=== PATIENT | female | born 1950 | race Caucasian/White ===

== ENCOUNTER 2017-02-16 12:30 | Inpatient (IN) ==
[2017-02-16 14:25] LABS: Basophils % 0.7 %; Eosinophils % 0.3 %; Hematocrit 39.9 % (35.3-44.9); Hemoglobin 13.2 g/dL (11.5-15.4); Immature Granulocytes % 0.3 % (0-4); Lymphocytes # 0.6 K/mcL (0.6-4.6); Lymphocytes % 9.2 %; Mean Corpuscular HGB Conc 33.1 g/dL (31.6-35.5); Mean Corpuscular Hemoglobin 30.3 pg (28.0-33.3); Mean Corpuscular Volume 91.7 fL (83.0-100.0); Mean Platelet Volume 8.9 fL (9.4-12.4); Monocytes # 0.2 K/mcL (0.0-1.3); Neutrophils # 5.1 K/mcL (1.6-8.9); Platelet Count 227 K/mcL (140-400); Red Blood Count 4.35 M/mcL (3.82-4.97); Red Cell Distribution Width 14.4 % (11.5-14.5); Segmented Neutrophils % 85.5 %
[2017-02-16 14:37] LABS: BUN/Creatinine Ratio 12 (6-26); Blood Urea Nitrogen 12 mg/dL (7-20); Calcium 10.5 mg/dL (8.6-10.8); Carbon Dioxide 30 mEq/L (19-29); Chloride 99 mEq/L (98-109); Glucose 102 mg/dL (70-99); Magnesium 2.1 mg/dL (1.6-2.6); Osmolality,Calculated 286 (280-300); Potassium 4.4 mEq/L (3.5-4.5); Sodium 138 mEq/L (136-145); eGFR For African Americans > 60 (> 60); eGFR For Non-African Americans 56 (> 60)
[2017-02-16 14:47] LABS: INR 4.9; Prothrombin Time 55.1 Seconds (9.4-12.1)
[2017-02-16 15:00] LABS: Thyroid Stimulating Hormone 0.509 mcIU/mL (0.350-4.840)
--- NOTE | 2017-02-16 15:00 | Emergency Department Note ---
Disposition Clinical Impression: Atrial fibrillation Qualifiers: Atrial fibrillation type: paroxysmal Qualified Code(s): I48.0 - Paroxysmal atrial fibrillation Chest pain Qualifiers: Chest pain type: unspecified Qualified Code(s): R07.9 - Chest pain, unspecified Disposition: Admitted As Inpatient Condition: Good Referrals: Raúl English DO [Primary Care Provider] - Forms: ED Satisfaction Letter Arrhythmia/Palpitations HPI - General Chief Complaint: ED Arrhythmia/Palpitations Stated Complaint: I'm in Afib Time Seen by Provider: 02/16/17 14:13 Source: patient Limitations: no limitations Nursing Notes Reviewed: Yes Vital Signs Reviewed: Yes - History of Present Illness HPI Narrative: She is a 66-year-old female history of proximal A. fib she had a cardiac ablation in the past she felt like she wanted A. fib she had irregular heartbeat palpitations and patient was very symptomatic with exertion. With any exertion she felt weak and fatigued, some chest discomfort and palpitations and mild dyspnea. Rest would make it better she had an episode several years ago this resolved on its own or hospitalization without requiring cardioversion. Pt Subjective Complaint: "skipped beats", palpitations Onset (ago): day(s) (4) Duration: constant Severity: moderate Context: occurred during exertion Arrhythmia History: atrial fibrillation Associated symptoms: Reports: chest pain, shortness of breath - Related Data Home Medications Medication Instructions Recorded Confirmed Buspirone HCl [Buspar] 10 mg PO BID PRN 04/07/16 10/06/16 Calcium Carbonate [Calcium] 500 mg PO BID 04/07/16 10/06/16 Digoxin [Lanoxin] 0.125 mg PO DAILY 04/07/16 10/06/16 Furosemide [Lasix] 40 mg PO BID 04/07/16 10/06/16 Hydroxychloroquine [Plaquenuil] 200 mg PO DAILY 04/07/16 10/06/16 Lisinopril [Zestril] 10 mg PO DAILY 04/07/16 10/06/16 Multivitamin [Multi-Day Vitamins] 1 tab PO DAILY 04/07/16 10/06/16 Pramipexole Di-HCl [Pramipexole 0.125 mg PO HS 04/07/16 10/06/16 Dihydrochloride] Pravastatin Sodium [Pravachol] 20 mg PO HS 04/07/16 10/06/16 Sertraline [Zoloft] 50 mg PO DAILY 04/07/16 10/06/16 Spironolactone [Aldactone] 25 mg PO DAILY 04/07/16 10/06/16 Tiotropium [Spiriva] 1 cap IH DAILY 04/07/16 10/06/16 Trazodone HCl 150 mg PO HS 04/07/16 10/06/16 amLODIPine [Norvasc] 5 mg PO DAILY 04/07/16 10/06/16 rOPINIRole [Requip] 1 mg PO HS 04/07/16 10/06/16 Ascorbate Calcium [Vitamin C] 500 mg PO DAILY 10/06/16 10/06/16 Methotrexate [Otrexup] 20 mg PO FR 10/06/16 10/06/16 Metoprolol [Lopressor] 12.5 mg PO BID 10/06/16 10/06/16 Potassium 99 mg PO DAILY 10/06/16 10/06/16 Sertraline [Zoloft] 50 mg PO DAILY 10/06/16 10/06/16 Warfarin [Coumadin] 4.5 mg PO Q48H 10/06/16 10/06/16 Warfarin [Coumadin] 5 mg PO Q48H 10/06/16 10/06/16 Previous Rx's Medication Instructions Recorded Enoxaparin [Lovenox] 80 mg SQ Q12HR #0 04/11/16 Allergies Allergy/AdvReac Type Severity Reaction Status Date / Time No Known Allergies Allergy Verified 02/16/17 12:43 All systems ED: reviewed and negative except as stated. Constitutional: Reports: weakness. Denies: fever, chills Respiratory: Reports: dyspnea Gastrointestinal: Denies: nausea, vomiting Past Medical History - Past Medical History Source: patient, old records reviewed, nursing notes reviewed Medical history: Reports: atrial fibrillation, COPD, coronary artery disease, hyperlipidemia, hypertension, peripheral artery disease, valvular heart disease Surgical history: Reports: appendectomy, coronary bypass (CABG), hysterectomy Psychiatric history: Reports: depression - Social History Smoking Status: Former smoker Smokeless Tobacco Status: No Alcohol use: Reports: none Drug use: Reports: none Physical Exam - General Limitations: no limitations General appearance: alert, in no apparent distress - Head Head exam: atraumatic, normocephalic, normal inspection - Eye Eye exam: Present: normal appearance, PERRL, EOMI - Expanded Eye Exam Pupils: Left: reactive - ENT ENT exam: normal exam, normal oropharynx, mucous membranes moist - Expanded ENT Exam External ear exam: Present: normal external inspection Mouth exam: Present: normal external inspection Teeth exam: Present: normal inspection Throat exam: Present: normal inspection - Neck Neck exam: Present: normal inspection, full ROM, trachea midline - Chest Chest inspection: Present: normal inspection, symmetric chest wall rise - Respiratory Respiratory exam: Present: normal lung sounds bilaterally - Cardiovascular Cardiovascular exam: Present: regular rate, irregular rhythm - Abdominal Exam Abdominal exam: Present: soft, Non-Tender. Absent: tenderness, distention, guarding, rebound, rigidity - Extremities Exam Extremities exam: Present: normal inspection, full ROM. Absent: tenderness, pedal edema - Expanded Upper Extremity Exam Shoulder exam: Present: normal inspection, full ROM Arm exam: Present: normal inspection, full ROM Elbow exam: Present: normal inspection, full ROM Forearm/Wrist exam: Present: normal inspection, full ROM Hand exam: Present: normal inspection, full ROM Vascular exam: Normal: capillary refill, radial pulse - Expanded Lower Extremity Exam Hip/Pelvis exam: Present: normal inspection, full ROM Upper leg exam: Present: normal inspection, full ROM Knee exam: Present: normal inspection, full ROM Lower leg exam: Present: normal inspection, full ROM Ankle exam: Present: normal inspection, full ROM Foot/toe exam: Present: normal inspection, full ROM Neurovascular/Tendon exam: Absent: motor deficit, sensory deficit, tendon deficit - Back Exam Back exam: Present: normal inspection, full ROM. Absent: tenderness - Neurological Exam Neurological exam: Present: alert, oriented X3 - Expanded Neurological Exam Patient oriented to: Present: person, place, time Coma Scale Eye Opening: Spontaneous Coma Scale Motor Response: Obeys Commands Coma Scale Verbal Response: Oriented Coma Scale Total: 15 - Psychiatric Psychiatric exam: Present: normal affect, normal mood - Skin Skin exam: Present: warm, dry, intact, normal color Course - Consultations Consultation #1: Dr. CHAVES plan on cardioversion tomorrow Time: 15:00 Vital Signs Temperature 98.0 F 02/16/17 12:38 Pulse Rate 82 02/16/17 12:38 Respiratory Rate 16 02/16/17 12:38 Blood Pressure 111/72 02/16/17 12:38 O2 Sat by Pulse Oximetry 97 06/26/17 12:38 Temperature 98.0 F 02/16/17 12:38 Pulse Rate 83 02/16/17 14:32 Respiratory Rate 16 02/16/17 14:32 Blood Pressure 107/97 02/16/17 14:32 O2 Sat by Pulse Oximetry 96 02/16/17 14:32 Oxygen Delivery Oxygen Delivery Room Air Arrhythmia/Palpitations - Differential Diagnosis Differential Diagnosis: Likely: ventricular premature beats, ventricular tachycardia, metabolic/electrolyte disturbance, undetermined arrhythmia - Medical Records Medical records reviewed: Yes I reviewed the patient's medical records. - Lab Data Lab results reviewed: Yes I reviewed the patient's lab results. Result diagrams: 02/16/17 14:12 02/16/17 14:12 Lab Results 02/16/17 02/16/17 02/16/17 Range/Units 14:12 14:12 14:12 WBC 6.0 (4.3-11.1) K/mcL RBC 4.35 (3.82-4.97) M/mcL Hgb 13.2 (11.5-15.4) g/dL Hct 39.9 (35.3-44.9) % MCV 91.7 (83.0-100.0) fL MCH 30.3 (28.0-33.3) pg MCHC 33.1 (31.6-35.5) g/dL RDW 14.4 (11.5-14.5) % Plt Count 227 (140-400) K/mcL MPV 8.9 L (9.4-12.4) fL Immature Gran % 0.3 (0-4) % Seg Neutrophils % 85.5 % Lymphocytes % 9.2 % Monocytes % 4.0 % Eosinophils % 0.3 % Basophils % 0.7 % Neutrophils # 5.1 (1.6-8.9) K/mcL Lymphocytes # 0.6 (0.6-4.6) K/mcL Monocytes # 0.2 (0.0-1.3) K/mcL Eosinophils # 0.0 (0.0-0.6) K/mcL Basophils # 0.0 (0.0-0.2) K/mcL PT 55.1 H* (9.4-12.1) Seconds INR 4.9 H* APTT 45.0 H (26.0-36.0) Seconds Sodium 138 (136-145) mEq/L Potassium 4.4 (3.5-4.5) mEq/L Chloride 99 (98-109) mEq/L Carbon Dioxide 30 H (19-29) mEq/L BUN 12 (7-20) mg/dL Creatinine 0.99 (0.57-1.11) mg/dL Est GFR ( Amer) > 60 (> 60) Est GFR (Non-Af Amer) 56 L (> 60) BUN/Creatinine Ratio 12 (6-26) Glucose 102 H (70-99) mg/dL Calculated Osmolality 286 (280-300) Calcium 10.5 (8.6-10.8) mg/dL Magnesium 2.1 (1.6-2.6) mg/dL Troponin I (0-0.03) ng/mL 02/16/17 Range/Units 14:12 WBC (4.3-11.1) K/mcL RBC (3.82-4.97) M/mcL Hgb (11.5-15.4) g/dL Hct (35.3-44.9) % MCV (83.0-100.0) fL MCH (28.0-33.3) pg MCHC (31.6-35.5) g/dL RDW (11.5-14.5) % Plt Count (140-400) K/mcL MPV (9.4-12.4) fL Immature Gran % (0-4) % Seg Neutrophils % % Lymphocytes % % Monocytes % % Eosinophils % % Basophils % % Neutrophils # (1.6-8.9) K/mcL Lymphocytes # (0.6-4.6) K/mcL Monocytes # (0.0-1.3) K/mcL Eosinophils # (0.0-0.6) K/mcL Basophils # (0.0-0.2) K/mcL PT (9.4-12.1) Seconds INR APTT (26.0-36.0) Seconds Sodium (136-145) mEq/L Potassium (3.5-4.5) mEq/L Chloride (98-109) mEq/L Carbon Dioxide (19-29) mEq/L BUN (7-20) mg/dL Creatinine (0.57-1.11) mg/dL Est GFR ( Amer) (> 60) Est GFR (Non-Af Amer) (> 60) BUN/Creatinine Ratio (6-26) Glucose (70-99) mg/dL Calculated Osmolality (280-300) Calcium (8.6-10.8) mg/dL Magnesium (1.6-2.6) mg/dL Troponin I 0.02 (0-0.03) ng/mL - Radiology Data Radiology results reviewed: Yes I reviewed the patient's radiology results. - EKG Data EKG attestation: Yes I reviewed and interpreted this EKG. Rate: normal Rhythm: A.Fib [place]/QRS: normal Interpretation: unchanged when compared to prior tracing (date)
[2017-02-16 15:31] LABS: Digoxin 0.7 ng/mL (0.8-2.0)
[2017-02-16] MEDS ORDERED: Acetaminophen 325 MG TABLET PO PRN (15:41)
[2017-02-16] MEDS ORDERED: Naloxone 0.4 MG/ML INJ IVP PRN (15:41)
--- NOTE | 2017-02-16 15:54 | Electrocardiograph Report ---
[place] [employer] 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
--- NOTE | 2017-02-16 16:22 | Internal Med History&Physical ---
<Selene Muñiz - Last Filed: 02/16/17 17:35> Date of Encounter: 02/16/17 Time of Encounter: 16:19 Assessment and Plan (1) Paroxysmal atrial fibrillation Current visit: Yes Status: Acute 1 patient has history of atrial fibrillation and she underwent ablation in 2009 she also has a history of mechanical aortic valve. She is on Coumadin. She has been experiencing increased shortness of breath fatigue palpitations she was found to be in atrial fibrillation. Cardiology has been consult and patient will undergo a cardioversion in the morning 2 patient is to be nothing by mouth after midnight for cardioversion 3 we will continue with home medications 4 we will hold Coumadin dose tonight due to INR 4.9 5 we will recheck INR in a.m. 6 digoxin level 0.7 we will give 0.25 mg po digoxin once and continue home dose (2) History of mechanical aortic valve replacement Current visit: Yes Status: Acute Patient has a hx of aortic mechanical valve will conintue with coumadin, presently INR 4.9- we will hold coumadin tonight recheck in am Goal INR 2.5- 3.0 (3) COPD (chronic obstructive pulmonary disease) Current visit: No Status: Chronic has hx of chronic COPD no excerbation at this time . We will continue with oxygen as well as bronchodilators Qualifiers: COPD type: unspecified COPD Qualified Code(s): J44.9 - Chronic obstructive pulmonary disease, unspecified (4) HTN (hypertension) Current visit: Yes Status: Acute 1 presently stable we will continue with home medications Qualifiers: Hypertension type: essential hypertension Qualified Code(s): I10 - Essential (primary) hypertension (5) Chest pain Current visit: Yes Status: Acute patient had fleeting episode of CP which resolved on own, Troponin .02 will continue to monitor troponin 2 cardiac monitoring 3 cardiology has been consulted Qualifiers: Chest pain type: unspecified Qualified Code(s): R07.9 - Chest pain, unspecified (6) DVT prophylaxis Current visit: Yes Status: Acute on coumadin Internal Medicine - H&P: HPI Chief complaint: Palpitations shortness of breath Admitted From: Emergency Dept Plans for Post Hospital Care: Home History of present illness: Ms. Diamond is a 66 year old female past medical history of hypertension fibrillation ablation 1999 mechanical AVR 1998 COPD 2 L oxygen history of diverticulitis. According to the patient on she began to feel fatigued short of breath palpitations on exertion. The symptoms would improve with rest. This continued for the next few days. This morning she states she continued to have palpitations and fatigue however she felt she was not improving and actually experiencing symptoms of rest. She did contact her primary care physician however was unable to reach them. 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 Upon arrival to the ER and EKG atrial fibrillation heart rate 80s to 90s however will to 120s on exertion. Lab work did reveal elevated INR at 4.9 Patient is on Coumadin for mechanical valve. Chest x-ray did not reveal any acute process She denies any fevers or chills. She does admit to a brief feeling of chest pressure midsternally nonradiating which resolved on his own after a few minutes a couple days ago. She also had experience abdominal pains cramping diarrhea she went to see her primary care who prescribed Cipro and Flagyl for diverticulitis flare. She states her abdominal symptoms have improved. ER physician speak with cardiology Dr. Bautista who will cardiovert patient in a.m. patient has been admitted for further work up evaluation. Presently the patient does not appear to be any respiratory distress she denies any chest pain she is atrial fib on the monitor rate 80-90 rest her vitals are stable. Lung sounds are clear heart sounds irregular S1-S2 with click with no rubs gallops murmurs noted. No pedal edema abdomen soft nontender presently she is hemodynamically stable. I reviewed his case with Dr. London who agrees with plan Past Med Surg Social Fam HX - Past Medical History Medical history: atrial fibrillation, COPD, coronary artery disease, hyperlipidemia, hypertension, peripheral artery disease, valvular heart disease Psychiatric history: depression - Past Surgical History Surgical History: appendectomy, coronary bypass (CABG), hysterectomy - Social History Smoking Status: Former smoker Smokeless Tobacco Status: No Alcohol use: none Drug use: none - Family History Father Living Status: Age at : 57 Cause of : Colon cancer Mother Living Status: Age at : 71 Cause of : HTN CAD Internal Medicine - H&P: Meds Buspirone HCl [Buspar] 10 mg PO BID PRN 04/07/16 [History] Calcium Carbonate [Calcium] 500 mg PO BID 04/07/16 [History] Digoxin [Lanoxin] 0.125 mg PO DAILY 04/07/16 [History] Furosemide [Lasix] 40 mg PO BID 04/07/16 [History] Hydroxychloroquine [Plaquenuil] 200 mg PO DAILY 04/07/16 [History] Lisinopril [Zestril] 10 mg PO DAILY 04/07/16 [History] Multivitamin [Multi-Day Vitamins] 1 tab PO DAILY 04/07/16 [History] Pramipexole Di-HCl [Pramipexole Dihydrochloride] 0.125 mg PO HS 04/07/16 [ History] Pravastatin Sodium [Pravachol] 20 mg PO HS 04/07/16 [History] Spironolactone [Aldactone] 25 mg PO DAILY 04/07/16 [History] Tiotropium [Spiriva] 1 cap IH DAILY 04/07/16 [History] Trazodone HCl 150 mg PO HS 04/07/16 [History] amLODIPine [Norvasc] 5 mg PO DAILY 04/07/16 [History] rOPINIRole [Requip] 1 mg PO HS 04/07/16 [History] Ascorbate Calcium [Vitamin C] 500 mg PO DAILY 10/06/16 [History] Methotrexate [Otrexup] 20 mg PO FR 10/06/16 [History] Metoprolol [Lopressor] 12.5 mg PO BID 10/06/16 [History] Potassium 99 mg PO DAILY 10/06/16 [History] Sertraline [Zoloft] 50 mg PO DAILY 10/06/16 [History] Warfarin [Coumadin] 6.5 mg PO DAILY 10/06/16 [History] Ciprofloxacin [Cipro] 500 mg PO BID 02/16/17 [History] Eluxadoline [Viberzi] 100 mg PO DAILY 02/16/17 [History] Ferrous Sulfate [Iron] 325 mg PO DAILY 02/16/17 [History] Folic Acid 1 mg PO DAILY 02/16/17 [History] metroNIDAZOLE [Flagyl] 500 mg PO BID 02/16/17 [History] Allergies No Known Allergies Allergy (Verified 02/16/17 15:09) All Systems PM: A 10-system review of systems was performed and is negative for pertinent findings except as documented above in the HPI. - Constitutional Constitutional: fatigue - EENT Eyes: no change in vision, no discharge, no pain, no photophobia Ears: no ear discharge, no ear pain, no tinnitus Nose, mouth and throat: no dysphagia, no nasal discharge, no neck pain, no sore throat - Cardiovascular Cardiovascular ROS IM: dyspnea, dyspnea on exertion, palpitations, no chest pain , no diaphoresis, no lightheadedness, no syncope - Respiratory Respiratory: dyspnea on exertion - Gastrointestinal Gastrointestinal: no abdominal pain, no diarrhea, no hematemesis, no hematochezia, no melena, no nausea, no vomiting - Genitourinary Genitourinary: no change in urinary stream, no dysuria, no flank pain, no hematuria - Musculoskeletal Musculoskeletal ROS IM: no numbness, no tingling - Integumentary Integumentary IM: no rash, no unusual bruising - Neurological Neurological ROS: no confusion, no convulsions, no focal weakness, no numbness, no tingling, no tremor(s) - Hematologic/Lymphatic Hematologic/Lymphatic: no easy bruising - Constitutional Vitals: Temp Pulse Resp BP Pulse Ox 98.0 F 84 16 109/80 98 02/16/17 12:38 02/16/17 15:30 02/16/17 15:30 02/16/17 15:30 02/16/17 15:30 General appearance: Present: A&O X 3, answers questions appropriately - Head Head exam: Present: atraumatic, normocephalic - Eye Eye exam: Present: PERRL, conjuntiva pink, sclera anicteric Pupils: Present: PERRL - Neck Neck exam general surgery: Present: supple, trachea midline. Absent: lymphadenopathy - Respiratory Respiratory exam: Present: CTAB. Absent: accessory muscle use, rales, rhonchi, wheezes - Cardiovascular Cardiovascular exam: Present: clicks, RRR, +S1, +S2. Absent: diastolic murmur, gallop, rubs, systolic murmur - GI/Abdominal GI/Abdominal exam: Present: normal bowel sounds, soft, no peritoneal signs. Absent: distended, tenderness - Extremities Exam Extremities exam: Present: warm, radial pulses palpable and symetrical. Absent : calf tenderness, cyanotic, pedal edema - Neurological Exam Neurological exam: Present: CN II-XII intact, oriented X3, no focal deficits. Absent: pronater drift, facial droop, speech deficit - Skin Skin exam: Present: dry, intact Internal Med - H&P Results - Labs CBC & Chem 7: 02/16/17 14:12 02/16/17 14:12 - EKG Data Prior EKG available for review: yes When compared to previous EKG: there are significant changes EKG comments: 02/16/17 16:[address] T wave abnormalities - Diagnostic Studies Other Images Additional comments: Chest X-Ray 02/16/17 13:28 IMPRESSION: Stable examination without acute focal process. D/ / Jim Witt MD / Jim Witt MD Interpreting Provider: Jim Witt MD <Binh London - Last Filed: 02/16/17 18:20> Date of Encounter: 02/16/17 Time of Encounter: 15:35 Internal Medicine - H&P: HPI History of present illness: Ms. Diamond is a 66 year old female All Systems PM: A 10-system review of systems was performed and is negative for pertinent findings except as documented above in the HPI. - Constitutional Vitals: Temp Pulse Resp BP Pulse Ox 98.0 F 94 17 123/80 94 02/16/17 17:03 02/16/17 17:03 02/16/17 17:03 02/16/17 17:03 02/16/17 17:03 Internal Med - H&P Results - Labs CBC & Chem 7: 02/16/17 14:12 02/16/17 14:12 - Attending Attestation I examined this patient and my medical decision-making was reviewed with the nurse practitioner. I agree with the documented history of present illness, review of systems, past medical, surgical social and family histories and examination findings, disposition and treatment plan as described above except to any changes set forth below. 66-year-old female patient with history of atrial fibrillation status post unsuccessful radiofrequency ablation presented to the ER with complaints of dyspnea and palpitations especially with ambulation even minimally. On examination in the ER, patient is in A. fib with irregularly irregular rhythm. S1 is normal S2 is loud with a click. Respiratory examination minimal bilateral wheezing. Patient has trace pedal edema. Paroxysmal Atrial fibrillation: Rate controlled. Cardiology was consulted. Digoxin level is low. We will give 0.25 mg digoxin and resume home dose from tomorrow. Given the patient's symptoms of worsening dyspnea with tachycardia on ambulation, recommend cardioversion. We will keep patient nothing by mouth overnight. Monitor with telemetry. On anticoagulation with Coumadin. INR is prolonged. We will hold Coumadin for now and resume tomorrow based on INR. Possible Acute diverticulitis: Patient is being treated as outpatient for possible acute diverticulitis. Complete treatment course. COPD: Not in acute exacerbation. We will treat with bronchodilators as needed. Chest pain: Associated with A. fib. No longer having chest pain at this time. Trend troponins. Cardiology consulted. Essential hypertension: Monitor blood pressure. Resume home medications.
[2017-02-16] MEDS ORDERED: *HR* Digoxin 0.25 MG TABLET PO ONE (17:16)
[2017-02-16] MEDS: Furosemide 20 MG TABLET PO SCH (18:21)
[2017-02-16] MEDS: traZODone 50 MG TABLET PO SCH (21:01)
[2017-02-16] MEDS: metroNIDAZOLE 500 MG TABLET PO SCH (21:02)
[2017-02-16] MEDS: rOPINIRole 1 MG TABLET PO SCH (21:02)
[2017-02-17 02:02] LABS: Basophils % 0.8 %; Eosinophils # 0.1 K/mcL (0.0-0.6); Eosinophils % 1.6 %; Hematocrit 35.5 % (35.3-44.9); Hemoglobin 11.8 g/dL (11.5-15.4); Immature Granulocytes % 0.2 % (0-4); Lymphocytes # 1.1 K/mcL (0.6-4.6); Lymphocytes % 22.8 %; Mean Corpuscular HGB Conc 33.2 g/dL (31.6-35.5); Mean Corpuscular Volume 90.3 fL (83.0-100.0); Mean Platelet Volume 9.2 fL (9.4-12.4); Monocytes # 0.5 K/mcL (0.0-1.3); Neutrophils # 3.2 K/mcL (1.6-8.9); Platelet Count 208 K/mcL (140-400); Red Blood Count 3.93 M/mcL (3.82-4.97); Red Cell Distribution Width 14.2 % (11.5-14.5); Segmented Neutrophils % 64.6 %
[2017-02-17 02:08] LABS: Activated Partial Thrombo Time 41.5 Seconds (26.0-36.0)
[2017-02-17 02:09] LABS: INR 5.4
[2017-02-17 02:18] LABS: BUN/Creatinine Ratio 14 (6-26); Blood Urea Nitrogen 15 mg/dL (7-20); Calcium 9.1 mg/dL (8.6-10.8); Carbon Dioxide 30 mEq/L (19-29); Chloride 99 mEq/L (98-109); Glucose 81 mg/dL (70-99); Magnesium 1.8 mg/dL (1.6-2.6); Osmolality,Calculated 288 (280-300); Potassium 3.6 mEq/L (3.5-4.5); Sodium 139 mEq/L (136-145); eGFR For African Americans > 60 (> 60); eGFR For Non-African Americans 51 (> 60)
[2017-02-17] MEDS: Tiotropium 18 MCG inhalation IH SCH (08:03)
[2017-02-17] MEDS ORDERED: *HR* Digoxin 0.125 MG TABLET PO SCH (09:00)
[2017-02-17] MEDS ORDERED: amLODIPine 5 MG TABLET PO SCH (09:00)
[2017-02-17] MEDS: Spironolactone 25 MG TABLET PO SCH (09:30)
[2017-02-17] MEDS: Furosemide 20 MG TABLET PO SCH ×2 (09:30→18:12)
[2017-02-17] MEDS: metroNIDAZOLE 500 MG TABLET PO SCH ×2 (09:30→21:51)
[2017-02-17] MEDS: Folic Acid 1 MG TABLET PO SCH (09:30)
[2017-02-17] MEDS: Ascorbic Acid 500 MG TABLET PO SCH (09:32)
--- NOTE | 2017-02-17 10:56 | Cardiology Consult Note ---
Date of Encounter: 02/17/17 Time of Encounter: 10:00 Assessment and Plan (1) Atrial fibrillation Current Visit: Yes Status: Acute Per Cardiology: History of A. fib with ablation in 2009. Presented with A. fib with RVR. Currently A. fib 110s. On metoprolol tartrate 12.5 mg by mouth twice a day-- we' ll discontinue Norvasc and lisinopril for now. Increase metoprolol to 25 mg by mouth twice a day. We'll titrate based on heart rate and blood pressure-- currently SBp 100's-110's. Per discussion with Dr. Pyle, plans for MAICOL once INR improved-- INR has been subtherapuetic recently, now= 5.4 (on antibiotics for diverticulitis), Coumadin on hold (will not reverse d/t mechanical AVR). If no significant findings on MAICOL, plan to initiate sotalol and possible DCCV during stay if clinically warranted. Last [facility] 08/2009 normal angiogram. Trops negative. Electrolytes stable. Denies CP. Qualifiers: Atrial fibrillation type: paroxysmal Qualified Code(s): I48.0 - Paroxysmal atrial fibrillation (2) History of mechanical aortic valve replacement Current Visit: Yes Status: Chronic Per Cardiology: History of congenital aortic valve disease with aortic valve repair at age 17 and mechanical aortic valve replacement in 1998. Most recent echo 12/2016 showed suggested prosthetic with mean gradient 42mmHg (not well visualized), EF 65% , mild MR, mild-mod TR, mild PHTN, NSWMA. Will evaluate severity of aortic stenosis on MAICOL as well. Discussion w patient/family: The assessment and plan as outlined above was discussed with the patient and/or family members who expressed understanding and agreement. All questions were answered. Thank you for involving us in the care of your patient. Please call with any questions. History of Present Illness Consult date: 02/17/17 Consult reason: SPENCER, Afib RVR Chief complaint: SPENCER History of present illness: Ms. Diamond is a 66 year old female with a relevant past medical history of congenital aortic stenosis with history of aortic valve repair at age 17 and mechanical aortic valve replacement 1998, paroxysmal atrial fibrillation with history of ablation 2009, anticoagulated with Coumadin, hypertension, hyperlipidemia, COPD with home O2, PAD. Last seen by Cardiology Dr. Pyle 12/2016 Cardiology c/s for afib RVR with SPENCER and fatigue. Recent abdominal pains, cramping, and diarrhea-- her PCP prescribed Cipro and Flagyl for diverticulitis flare. She states her abdominal symptoms have improved. Reports since increased SPENCER and fatigue from baseline; improved with rest. Yesterday developed palps and sob at rest. 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 Upon arrival to the ER and EKG atrial fibrillation heart rate 80s to 90s however and up to the 120s on exertion. Reports today mild palps. No CP. No bleeding or blood loss. Reports INRs fluctuating recently. Past Med Surg Social Fam HX - Past Medical History Attestation: Yes The following information was validated with the patient. Source: patient, old records reviewed, obtained from family Medical history: atrial fibrillation, COPD, coronary artery disease, hyperlipidemia, hypertension, peripheral artery disease, valvular heart disease Psychiatric history: depression - Past Surgical History Surgical History: appendectomy, coronary bypass (CABG), hysterectomy - Social History Smoking Status: Former smoker Smokeless Tobacco Status: No Alcohol use: none Drug use: none - Family History Father Name: Riccardo Abrams Jr Living Status: Age at : 57 Cause of : Colon cancer Hx Family Cancer: Yes (colon and liver) Mother Living Status: Age at : 71 Cause of : HTN CAD Medications and Allergies Buspirone HCl [Buspar] 10 mg PO BID PRN 04/07/16 [History] Calcium Carbonate [Calcium] 500 mg PO BID 04/07/16 [History] Digoxin [Lanoxin] 0.125 mg PO DAILY 04/07/16 [History] Furosemide [Lasix] 40 mg PO BID 04/07/16 [History] Hydroxychloroquine [Plaquenuil] 200 mg PO DAILY 04/07/16 [History] Lisinopril [Zestril] 10 mg PO DAILY 04/07/16 [History] Multivitamin [Multi-Day Vitamins] 1 tab PO DAILY 04/07/16 [History] Pramipexole Di-HCl [Pramipexole Dihydrochloride] 0.125 mg PO HS 04/07/16 [ History] Pravastatin Sodium [Pravachol] 20 mg PO HS 04/07/16 [History] Spironolactone [Aldactone] 25 mg PO DAILY 04/07/16 [History] Tiotropium [Spiriva] 1 cap IH DAILY 04/07/16 [History] Trazodone HCl 150 mg PO HS 04/07/16 [History] amLODIPine [Norvasc] 5 mg PO DAILY 04/07/16 [History] rOPINIRole [Requip] 1 mg PO HS 04/07/16 [History] Ascorbate Calcium [Vitamin C] 500 mg PO DAILY 10/06/16 [History] Methotrexate [Otrexup] 20 mg PO FR 10/06/16 [History] Metoprolol [Lopressor] 12.5 mg PO BID 10/06/16 [History] Potassium 99 mg PO DAILY 10/06/16 [History] Sertraline [Zoloft] 50 mg PO DAILY 10/06/16 [History] Warfarin [Coumadin] 6.5 mg PO DAILY 10/06/16 [History] Ciprofloxacin [Cipro] 500 mg PO BID 02/16/17 [History] Eluxadoline [Viberzi] 100 mg PO DAILY 02/16/17 [History] Ferrous Sulfate [Iron] 325 mg PO DAILY 02/16/17 [History] Folic Acid 1 mg PO DAILY 02/16/17 [History] metroNIDAZOLE [Flagyl] 500 mg PO BID 02/16/17 [History] Allergies No Known Allergies Allergy (Verified 02/16/17 15:09) All Systems Review: A 10-system review of systems was performed and is negative for pertinent findings except as documented above in the HPI. - Constitutional Constitutional: fatigue - Cardiovascular Cardiovascular: as per HPI, dyspnea at rest, dyspnea on exertion, palpitations, rapid heart rate - Gastrointestinal Gastrointestinal: abdominal pain, diarrhea Physical Examination Vital Signs, Last 4 Hours Temp Pulse Resp BP Pulse Ox 02/17/17 08:04 16 94 02/17/17 07:23 98.1 F 82 16 113/75 94 General: Conversant, No Apparent Distress HEENT: Atraumatic, Normocephaly, Mucus Membranes Moist Neck: No JVD, Normal carotid pulses Cardiac: No Murmur, Other (irregularly irregular) Lungs: Normal Breath Sounds, Other (slioghtly diminished to bases) Neuro: Alert and responsive, No focal deficits noted Abdomen: Soft, Non-Tender Skin: No rashes noted on visualized skin Musculoskeletal: No Chest Wall Tenderness Extremities: No Edema, Normal Pulses Results 02/17/17 01:34 02/17/17 01:34 Lab Results Laboratory Tests 02/17/17 01:34 INR 5.4 H* 02/16/17 02/16/17 02/16/17 14:12 14:12 14:12 Magnesium Troponin I 0.02 B-Natriuretic Peptide 203 H TSH 0.509 02/16/17 02/17/17 02/17/17 19:54 01:34 01:34 Magnesium 1.8 Troponin I 0.02 0.01 B-Natriuretic Peptide TSH ITS Impressions Chest X-Ray 02/16/17 13:28 IMPRESSION: Stable examination without acute focal process. D/ / Jim Witt MD / Jim Witt MD Interpreting Provider: Jim Witt MD Active Medications Acetaminophen (Tylenol) 650 mg PO Q6HR PRN PRN Reason: Mild Pain (1-3) Stop: 08/18/17 15:42 Last Admin: 02/16/17 21:34 Dose: 650 mg Ascorbic Acid (Vitamin C) 500 mg PO DAILY LEONARD Stop: 08/19/17 09:01 Last Admin: 02/17/17 09:32 Dose: 500 mg Ciprofloxacin HCl (Cipro) 500 mg PO BID LEONARD Stop: 02/22/17 21:01 Last Admin: 02/17/17 09:30 Dose: 500 mg Digoxin (Lanoxin) 0.125 mg PO DAILY LEONARD Stop: 08/19/17 09:01 Last Admin: 02/17/17 09:30 Dose: 0.125 mg Ferrous Sulfate (Ferrous Sulfate) 325 mg PO DAILY LEONARD Stop: 08/19/17 09:01 Last Admin: 02/17/17 09:30 Dose: 325 mg Folic Acid (Folic Acid) 1 mg PO DAILY LEONARD Stop: 08/19/17 09:01 Last Admin: 02/17/17 09:30 Dose: 1 mg Furosemide (Lasix) 40 mg PO BIDDIURETIC LEONARD Stop: 08/18/17 17:01 Last Admin: 02/17/17 09:30 Dose: 40 mg Hydroxychloroquine Sulfate (Plaquenuil) 200 mg PO DAILY [facility] Stop: 08/19/17 09:01 Last Admin: 02/17/17 09:31 Dose: 200 mg Lisinopril (Zestril) 5 mg PO DAILY LEONARD PRN Reason: Protocol Stop: 08/19/17 09:01 Metoprolol Tartrate (Lopressor) 25 mg PO BID [facility] Stop: 08/19/17 21:01 Metronidazole (Flagyl) 500 mg PO BID LEONARD PRN Reason: Protocol Stop: 02/22/17 21:01 Last Admin: 02/17/17 09:30 Dose: 500 mg Naloxone HCl (Narcan) 0.4 mg IVP Q2MIN PRN PRN Reason: Opioid Reversal Stop: 08/18/17 15:42 Ropinirole HCl (Requip) 1 mg PO HS [facility] Stop: 08/18/17 21:01 Last Admin: 02/16/17 21:02 Dose: 1 mg Sertraline HCl (Zoloft) 50 mg PO DAILY [facility] Stop: 08/19/17 09:01 Last Admin: 02/17/17 09:32 Dose: 50 mg Simvastatin (Zocor) 10 mg PO HS [facility] Stop: 08/18/17 21:01 Last Admin: 02/16/17 21:01 Dose: 10 mg Spironolactone (Aldactone) 25 mg PO DAILY [facility] Stop: 08/19/17 09:01 Last Admin: 02/17/17 09:30 Dose: 25 mg Tiotropium [place] (Spiriva) 18 mcg IH DAILY [facility] PRN Reason: Protocol Stop: 08/19/17 09:01 Last Admin: 02/17/17 08:03 Dose: 18 mcg Trazodone HCl (Trazodone) 150 mg PO HS [facility] Stop: 08/18/17 21:01 Last Admin: 02/16/17 21:01 Dose: 150 mg - Imaging and Cardiology Chest Xray: report reviewed Echo: report reviewed Cardiac cath: report reviewed - EKG Interpretation EKG results cardiology: personally reviewed (afib), other (currently afib 110's) Consult Discharge Plan - Plan Referrals: Raúl English, [Primary Care Provider] -
--- NOTE | 2017-02-17 18:24 | Internal Med Progress Note ---
Date of Encounter: 02/17/17 Time of Encounter: 10:30 - Assessment and plan (1) Atrial fibrillation Current Visit: Yes Status: Chronic Assessment and plan: Cardiology on board. Rate currently controlled. Supratherapeutic INR, holding her Coumadin. No signs of active bleeding. We will trend her INR. Per cardiology, plan is to perform a MAICOL tomorrow if her INR is less than 4 and if no clots are found, sotalol will be initiated. Nothing by mouth at midnight. Qualifiers: Atrial fibrillation type: paroxysmal Qualified Code(s): I48.0 - Paroxysmal atrial fibrillation (2) Chest pain Current Visit: Yes Status: Resolved Assessment and plan: Patient has denied chest pain since admission. Qualifiers: Chest pain type: unspecified Qualified Code(s): R07.9 - Chest pain, unspecified (3) History of mechanical aortic valve replacement Current Visit: Yes Status: Chronic Assessment and plan: Patient with history of aortic mechanical valve replacement on Coumadin therapy with goal of INR between 2.5 and 3. Currently supratherapeutic, holding Coumadin. Cardiology on board. (4) COPD (chronic obstructive pulmonary disease) Current Visit: No Status: Chronic Assessment and plan: No acute exacerbation. Patient denies shortness of breath above her norm. Qualifiers: COPD type: unspecified COPD Qualified Code(s): J44.9 - Chronic obstructive pulmonary disease, unspecified (5) HTN (hypertension) Current Visit: Yes Status: Chronic Assessment and plan: Controlled, we will continue to trend and adjust medications as indicated. Qualifiers: Hypertension type: essential hypertension Qualified Code(s): I10 - Essential (primary) hypertension (6) DVT prophylaxis Current Visit: Yes Status: Acute Assessment and plan: Supratherapeutic INR - Subjective Interval history: Patient seen and examined. On examination, patient sitting upright in bed doing a crossword puzzle. She denies pain or shortness of breath at this time. She denies palpitations. She is endorsing a normal appetite. - Constitutional Vitals: Temp Pulse Resp BP Pulse Ox 98.1 F 78 16 100/66 91 02/17/17 15:22 02/17/17 15:22 02/17/17 15:22 02/17/17 15:22 02/17/17 15:22 General appearance: Present: A&O X 3, pleasant, no acute distress, answers questions appropriately - Head Head exam: Present: atraumatic, normocephalic - Eye Eye exam: Present: PERRL, conjuntiva pink, sclera anicteric Pupils: Present: PERRL - Neck Neck exam general surgery: Present: supple, trachea midline. Absent: lymphadenopathy - Respiratory Respiratory exam: Present: CTAB. Absent: accessory muscle use, rales, respiratory distress, rhonchi, wheezes - Cardiovascular Cardiovascular exam: Present: irregular rhythm, RRR, +S1, +S2. Absent: diastolic murmur, gallop, rubs, systolic murmur - GI/Abdominal GI/Abdominal exam: Present: normal bowel sounds, soft, no peritoneal signs. Absent: distended, tenderness - Extremities Exam Extremities exam: Present: warm, radial pulses palpable and symetrical. Absent : calf tenderness, cyanotic, pedal edema - Neurological Exam Neurological exam: Present: alert, CN II-XII intact, oriented X3, no focal deficits, strengths equal and symetr throughout. Absent: pronater drift, facial droop, speech deficit - Skin Skin exam: Present: dry, intact, normal color, warm Internal Medicine: Result - Labs CBC & Chem 7: 02/17/17 01:34 02/17/17 01:34 Labs: Short CBC 02/17/17 Range/Units 01:34 WBC 4.9 (4.3-11.1) K/mcL Hgb 11.8 (11.5-15.4) g/dL Hct 35.5 (35.3-44.9) % Plt Count 208 (140-400) K/mcL Neutrophils # 3.2 (1.6-8.9) K/mcL BMP 02/17/17 01:34 Sodium 139 Potassium 3.6 Chloride 99 Carbon Dioxide 30 H BUN 15 Creatinine 1.08 Glucose 81 Calcium 9.1 Cardiac Enzymes 02/16/17 02/17/17 Range/Units 19:54 01:34 Troponin I 0.02 0.01 (0-0.03) ng/mL - ABG Interpretation ABG results: PT/INR, D-dimer PT 61.0 Seconds (9.4-12.1) H* 02/17/17 01:34 - VTE Documentation of Mechanical Device: Graduated compression elastic hosiery Consult Discharge Plan - Plan Referrals: Raúl English DO [Primary Care Provider] -
[2017-02-17] MEDS: rOPINIRole 1 MG TABLET PO SCH (21:52)
[2017-02-17] MEDS: traZODone 50 MG TABLET PO SCH (21:52)
[2017-02-18 07:40] LABS: Basophils % 0.7 %; Eosinophils # 0.1 K/mcL (0.0-0.6); Hematocrit 41.6 % (35.3-44.9); Immature Granulocytes % 0.3 % (0-4); Lymphocytes # 1.5 K/mcL (0.6-4.6); Lymphocytes % 25.2 %; Mean Corpuscular HGB Conc 32.9 g/dL (31.6-35.5); Mean Corpuscular Hemoglobin 29.5 pg (28.0-33.3); Mean Corpuscular Volume 89.7 fL (83.0-100.0); Mean Platelet Volume 8.7 fL (9.4-12.4); Monocytes # 0.6 K/mcL (0.0-1.3); Monocytes % 10.2 %; Neutrophils # 3.7 K/mcL (1.6-8.9); Platelet Count 258 K/mcL (140-400); Red Blood Count 4.64 M/mcL (3.82-4.97); Red Cell Distribution Width 14.5 % (11.5-14.5); Segmented Neutrophils % 62.6 %
[2017-02-18 07:41] LABS: Hemoglobin 13.7 g/dL (11.5-15.4)
[2017-02-18 07:54] LABS: Calcium 9.6 mg/dL (8.6-10.8); Potassium 3.8 mEq/L (3.5-4.5)
[2017-02-18] MEDS: Tiotropium 18 MCG inhalation IH SCH (08:01)
[2017-02-18 08:22] LABS: INR 3.8; Prothrombin Time 42.5 Seconds (9.4-12.1)
[2017-02-18] MEDS ORDERED: 0.9 % Sodium Chloride 1,000 ML IVC SCH (08:30)
--- NOTE | 2017-02-18 08:36 | Event Note ---
Date of Encounter: 02/18/17 Time of Encounter: 08:30 - Cardiology Event Note Laboratory Tests 02/18/17 07:12 INR 3.8 Avg HR on tele past 12 hrs 91, currently afib 110's. Plan for MAICOL today to assess for potential thrombus and assess . Will resume Coumadin when able. All questions answered.
[2017-02-18] MEDS: Folic Acid 1 MG TABLET PO SCH (10:26)
[2017-02-18] MEDS: Spironolactone 25 MG TABLET PO SCH (10:26)
[2017-02-18] MEDS: metroNIDAZOLE 500 MG TABLET PO SCH ×2 (10:27→21:38)
[2017-02-18] MEDS: Ascorbic Acid 500 MG TABLET PO SCH (10:27)
[2017-02-18] MEDS: Furosemide 20 MG TABLET PO SCH (10:28)
[2017-02-18] MEDS ORDERED: 0.9 % Sodium Chloride 500 ML IVC ONE (10:40)
[2017-02-18] MEDS ORDERED: Tetracaine/Benzocaine/Butamben 200MG/SPRAY (100SPY/BOT) MM ONE (10:40)
[2017-02-18] MEDS: *HR* Midazolam HCl 5 MG/5 ML VIAL IVP PRN ×2 (11:35→11:40)
[2017-02-18] MEDS: *HR* FentaNYL (PF) 100 MCG/2 ML VIAL IVP PRN ×2 (11:35→11:40)
--- NOTE | 2017-02-18 17:59 | Internal Med Progress Note ---
Date of Encounter: 02/18/17 Time of Encounter: 14:30 - Assessment and plan (1) Atrial fibrillation Current Visit: Yes Status: Chronic Assessment and plan: Cardiology on board. Rate currently controlled. Supratherapeutic INR but improved today. Cardiology performed a MAICOL earlier today and have since started the patient on Sotalol. Will observe her response. If she does not convery by thursday, plan for possible cardioversion per cardiology. No signs of active bleeding. We will trend her INR and HR. Qualifiers: Atrial fibrillation type: paroxysmal Qualified Code(s): I48.0 - Paroxysmal atrial fibrillation (2) Chest pain Current Visit: Yes Status: Resolved Assessment and plan: Patient has denied chest pain since admission. Qualifiers: Chest pain type: unspecified Qualified Code(s): R07.9 - Chest pain, unspecified (3) History of mechanical aortic valve replacement Current Visit: Yes Status: Chronic Assessment and plan: Patient with history of aortic mechanical valve replacement on Coumadin therapy with goal of INR between 2.5 and 3. Currently supratherapeutic, holding Coumadin- pharmacy to dose. Cardiology on board. (4) COPD (chronic obstructive pulmonary disease) Current Visit: No Status: Chronic Assessment and plan: No acute exacerbation. Patient denies shortness of breath above her norm. Qualifiers: COPD type: unspecified COPD Qualified Code(s): J44.9 - Chronic obstructive pulmonary disease, unspecified (5) HTN (hypertension) Current Visit: Yes Status: Chronic Assessment and plan: Controlled, we will continue to trend and adjust medications as indicated. Qualifiers: Hypertension type: essential hypertension Qualified Code(s): I10 - Essential (primary) hypertension (6) DVT prophylaxis Current Visit: Yes Status: Acute Assessment and plan: Supratherapeutic INR (7) Chronic diarrhea Current Visit: Yes Status: Chronic Assessment and plan: Chronic and being followed by GI. Had a recent colonoscopy with subsequent EGD that were both unremarkable. She was recently placed on Cipro and Flagyl, holding Cipro at this time secondary to QT prolongation. We will continue Flagyl and monitor her response. Imodium as needed. - Subjective Interval history: Patient seen and examined. On examination, patient sitting upright in bed conversing with her family. She denies pain or shortness of breath at this time. She denies palpitations. She is endorsing a normal appetite. - Constitutional Vitals: Temp Pulse Resp BP Pulse Ox 97.9 F 69 17 111/68 90 02/18/17 15:25 02/18/17 15:25 02/18/17 15:25 02/18/17 15:25 02/18/17 15:25 General appearance: Present: A&O X 3, pleasant, no acute distress, answers questions appropriately - Head Head exam: Present: atraumatic, normocephalic - Eye Eye exam: Present: PERRL, conjuntiva pink, sclera anicteric Pupils: Present: PERRL - Neck Neck exam general surgery: Present: supple, trachea midline. Absent: lymphadenopathy - Respiratory Respiratory exam: Present: CTAB. Absent: accessory muscle use, rales, respiratory distress, rhonchi, wheezes - Cardiovascular Cardiovascular exam: Present: irregular rhythm, RRR, +S1, +S2. Absent: diastolic murmur, gallop, rubs, systolic murmur - GI/Abdominal GI/Abdominal exam: Present: normal bowel sounds, soft, no peritoneal signs. Absent: distended, tenderness - Extremities Exam Extremities exam: Present: warm, radial pulses palpable and symetrical. Absent : calf tenderness, cyanotic, pedal edema - Neurological Exam Neurological exam: Present: alert, CN II-XII intact, oriented X3, no focal deficits, strengths equal and symetr throughout. Absent: pronater drift, facial droop, speech deficit - Skin Skin exam: Present: dry, intact, normal color, warm Internal Medicine: Result - Labs CBC & Chem 7: 02/18/17 07:12 02/18/17 07:12 Labs: Short CBC 02/18/17 Range/Units 07:12 WBC 6.0 (4.3-11.1) K/mcL Hgb 13.7 D (11.5-15.4) g/dL Hct 41.6 (35.3-44.9) % Plt Count 258 (140-400) K/mcL Neutrophils # 3.7 (1.6-8.9) K/mcL BMP 02/18/17 07:12 Sodium 137 Potassium 3.8 Chloride 97 L Carbon Dioxide 30 H BUN 16 Creatinine 1.37 H Glucose 97 Calcium 9.6 - ABG Interpretation ABG results: PT/INR, D-dimer PT 42.5 Seconds (9.4-12.1) H 02/18/17 07:12 - VTE Reasons for not Prescribing Prophylaxis: Not indicated-Anticoagulated or INR therapeutic Documentation of Mechanical Device: Graduated compression elastic hosiery Consult Discharge Plan - Plan Referrals: Raúl English DO [Primary Care Provider] -
[2017-02-18] MEDS ORDERED: Warfarin perPT PO PRN (18:00)
[2017-02-18] MEDS ORDERED: *HR* Warfarin 3 MG TABLET PO ONE (18:00)
[2017-02-18] MEDS: ELUXADOLINE 100 MG PO SCH (18:28)
[2017-02-18] MEDS: rOPINIRole 1 MG TABLET PO SCH (21:37)
[2017-02-18] MEDS: traZODone 50 MG TABLET PO SCH (21:38)
[2017-02-19 03:14] LABS: INR 3.5; Prothrombin Time 39.1 Seconds (9.4-12.1)
[2017-02-19 03:28] LABS: BUN/Creatinine Ratio 17 (6-26); Blood Urea Nitrogen 18 mg/dL (7-20); Calcium 8.7 mg/dL (8.6-10.8); Carbon Dioxide 29 mEq/L (19-29); Chloride 101 mEq/L (98-109); Glucose 91 mg/dL (70-99); Osmolality,Calculated 285 (280-300); Potassium 3.9 mEq/L (3.5-4.5); Sodium 137 mEq/L (136-145); eGFR For African Americans > 60 (> 60); eGFR For Non-African Americans 51 (> 60)
[2017-02-19] MEDS: Tiotropium 18 MCG inhalation IH SCH (08:00)
[2017-02-19] MEDS: Spironolactone 25 MG TABLET PO SCH (08:37)
[2017-02-19] MEDS: ELUXADOLINE 100 MG PO SCH (08:37)
[2017-02-19] MEDS: metroNIDAZOLE 500 MG TABLET PO SCH ×2 (08:37→21:55)
[2017-02-19] MEDS: Ascorbic Acid 500 MG TABLET PO SCH (08:37)
[2017-02-19] MEDS: Folic Acid 1 MG TABLET PO SCH (08:37)
--- NOTE | 2017-02-19 09:01 | Cardiology Progress Note ---
Date of Encounter: 02/19/17 Time of Encounter: 08:58 Assessment and Plan (1) Atrial fibrillation Current Visit: Yes Status: Chronic Per Cardiology: History of A. fib with ablation in 2009. Presented with A. fib with RVR. Sotalol 80 mg BID started yesterday. She received her 2nd dose this morning. Metoprolol increased to 25 mg BID. MAICOL completed to r/o thrombus prior to starting sotalol therapy. MAICOL revealed EF 60%. RV was normal in size and function. Severely dilated LA. SAHIL is normal with no thrombus. Mechanical aortic valve is well seated. leaflet mobility not well visualized due to acoustic shadowing. No aortic regurgitation seen. No evidence of prosthetic stenosis. Telemetry review shows avg HR 82 bpm, atrial fibrillation. There was two mckenzie and a few couplets seen. No significant bradycardia. EKG 02/18/17: HR 72 bpm, QT/QTc -363/368, QRS 109. EKG 02/19/17: HR 66 bpm, QT/QTc- 398/412, QRS 99. Plan for DCCV tomorrow if she does not convert to NSR. On coumadin therapy. INR 3.5 today. Goal INR 2.0-3.0. Pharmacy dosing. Qualifiers: Atrial fibrillation type: paroxysmal Qualified Code(s): I48.0 - Paroxysmal atrial fibrillation (2) History of mechanical aortic valve replacement Current Visit: Yes Status: Chronic Per Cardiology: History of congenital aortic valve disease with aortic valve repair at age 17 and mechanical aortic valve replacement in 1998. Most recent echo 12/2016 showed suggested prosthetic with mean gradient 42mmHg (not well visualized), EF 65%, mild MR, mild-mod TR, mild PHTN, NSWMA. MAICOL completed and no significant prosthetic seen. On coumadin. Goal INR 2.0-3.0 for aortic mechanical valve. Pharmacy to dose coumadin. Discussion w patient/family: The assessment and plan as outlined above was discussed with the patient and/or family members who expressed understanding and agreement. All questions were answered. Thank you for involving us in the care of your patient. Please call with any questions. Subjective Principal diagnosis: afib, mechanical aortic valve Interval history: No complaints. Sitting on side of bed eating breakfast. Reports she can feel HR is slower. Objective Vital Signs, Last 4 Hours Temp Pulse Resp BP Pulse Ox 02/19/17 07:08 98.1 F 74 16 115/60 94 General: Conversant, No Apparent Distress HEENT: Atraumatic, Normocephaly, Mucus Membranes Moist Neck: No JVD, Normal carotid pulses Cardiac: Other (Irregularly irregular, audible click) Lungs: Normal Breath Sounds, No Wheeze, Rales, Rhonchi Neuro: Alert and responsive, No focal deficits noted Abdomen: Soft, Non-Tender Skin: No rashes noted on visualized skin Musculoskeletal: No Chest Wall Tenderness Extremities: No Clubbing, No Cyanosis, No Edema, Normal Pulses Results 02/18/17 07:12 02/19/17 03:01 Lab Results 02/19/17 02/19/17 03:01 03:01 INR 3.5 Sodium 137 Potassium 3.9 Chloride 101 Carbon Dioxide 29 BUN 18 Creatinine 1.07 Glucose 91 Calcium 8.7 - Imaging and Cardiology Echo: report reviewed - VTE Reasons for not Prescribing Prophylaxis: Not indicated-Anticoagulated or INR therapeutic Documentation of Mechanical Device: Graduated compression elastic hosiery Consult Discharge Plan - Plan Referrals: Raúl English DO [Primary Care Provider] -
--- NOTE | 2017-02-19 11:25 | Electrocardiograph Report ---
[address] [place] [address] Test Date: 2017-02-19 Pat Name: Charmaine Diamond Department: 113 Room: 3B Gender: [employer] Director: : 1950 Requested By: Sharad Zuleta Order Number: [id number] Reading MD: Alvino Persaud MD Measurements Intervals [place] Rate: 66 P: CA: 0 QRS: 51 QRSD: 99 T: 57 QT: 398 QTc: 412 Interpretive Statements ATRIAL FIBRILLATION Electronically Signed On 02-19-2017 11:23:46 EDT by Alvino Persaud MD
--- NOTE | 2017-02-19 12:00 | Electrocardiograph Report ---
[place] [address] Test Date: 2017-02-18 Pat Name: Charmaine Diamond Department: 113 Room: 3B Gender: [employer] Worker: PASQUALE : 1950 Requested By: Phoebe Jaquez Order Number: [id number] Reading MD: Alvino Persaud MD Measurements Intervals [place] Rate: 72 P: IN: 0 QRS: 51 QRSD: 109 T: 30 QT: 363 QTc: 386 Interpretive Statements ATRIAL FIBRILLATION Electronically Signed On 02-19-2017 11:59:33 EDT by Alvino Persaud MD
--- NOTE | 2017-02-19 13:46 | Internal Med Progress Note ---
Date of Encounter: 02/19/17 Time of Encounter: 13:44 - Assessment and plan (1) Atrial fibrillation Current Visit: Yes Status: Chronic Assessment and plan: Patient is known to have atrial fibrillation. Previous cryoablation in 2009. Presented with ARamiro stahl RVR. Currently cardiology on the board. Cardiology recommended MAICOL which did not reveal any thrombus. Plan: Sotalol started by cardiology.(QRS between 95 and 115.) Completed second dose of sotalol. Anticoagulation: Coumadin: Target INR 2-3 Today's INR 3.5 Qualifiers: Atrial fibrillation type: paroxysmal Qualified Code(s): I48.0 - Paroxysmal atrial fibrillation (2) History of mechanical aortic valve replacement Current Visit: Yes Status: Chronic Assessment and plan: Patient with history of aortic mechanical valve replacement on Coumadin therapy with goal of INR between 2.5 and 3. Currently supratherapeutic, holding Coumadin- pharmacy to dose. Cardiology on board. (3) COPD (chronic obstructive pulmonary disease) Current Visit: No Status: Chronic Assessment and plan: No acute exacerbation. Patient denies shortness of breath above her norm. Qualifiers: COPD type: unspecified COPD Qualified Code(s): J44.9 - Chronic obstructive pulmonary disease, unspecified (4) HTN (hypertension) Current Visit: Yes Status: Chronic Assessment and plan: Controlled, we will continue to trend and adjust medications as indicated. Qualifiers: Hypertension type: essential hypertension Qualified Code(s): I10 - Essential (primary) hypertension - Subjective Interval history: Seen and examined. Chart reviewed. Patient is comfortably lying in the bed. Patient denies chest pain, shortness of breath, palpitation, dizziness or diarrhea. - Constitutional Vitals: Temp Pulse Resp BP Pulse Ox 98.4 F 71 18 105/69 92 02/19/17 11:35 02/19/17 11:35 02/19/17 11:35 02/19/17 11:35 02/19/17 11:35 General appearance: Present: A&O X 3, pleasant, no acute distress, answers questions appropriately - Head Head exam: Present: atraumatic, normocephalic - Eye Eye exam: Present: PERRL, conjuntiva pink, sclera anicteric Pupils: Present: PERRL - Neck Neck exam general surgery: Present: supple, trachea midline. Absent: lymphadenopathy - Respiratory Respiratory exam: Present: CTAB. Absent: accessory muscle use, rales, rhonchi, wheezes - Cardiovascular Cardiovascular exam: Present: RRR, +S1, +S2. Absent: diastolic murmur, gallop, rubs, systolic murmur - GI/Abdominal GI/Abdominal exam: Present: normal bowel sounds, soft, no peritoneal signs. Absent: distended, tenderness - Extremities Exam Extremities exam: Present: warm, radial pulses palpable and symetrical. Absent : calf tenderness, cyanotic, pedal edema - Neurological Exam Neurological exam: Present: CN II-XII intact, oriented X3, no focal deficits. Absent: pronater drift, facial droop, speech deficit - Skin Skin exam: Present: dry, intact Internal Medicine: Result - Labs CBC & Chem 7: 02/18/17 07:12 02/19/17 03:01 Labs: BMP 02/19/17 03:01 Sodium 137 Potassium 3.9 Chloride 101 Carbon Dioxide 29 BUN 18 Creatinine 1.07 Glucose 91 Calcium 8.7 - ABG Interpretation ABG results: PT/INR, D-dimer PT 39.1 Seconds (9.4-12.1) H 02/19/17 03:01 - VTE Reasons for not Prescribing Prophylaxis: Not indicated-Anticoagulated or INR therapeutic Documentation of Mechanical Device: Graduated compression elastic hosiery Consult Discharge Plan - Plan Referrals: Raúl English DO [Primary Care Provider] -
[2017-02-19] MEDS ORDERED: *HR* Warfarin 3 MG TABLET PO ONE (18:00)
[2017-02-19] MEDS: rOPINIRole 1 MG TABLET PO SCH (21:55)
[2017-02-19] MEDS: traZODone 50 MG TABLET PO SCH (21:57)
[2017-02-20 04:34] LABS: Basophils % 0.8 %; Eosinophils # 0.1 K/mcL (0.0-0.6); Eosinophils % 1.7 %; Hematocrit 35.3 % (35.3-44.9); Immature Granulocytes % 0.6 % (0-4); Lymphocytes % 18.5 %; Mean Corpuscular HGB Conc 33.4 g/dL (31.6-35.5); Mean Corpuscular Hemoglobin 30.5 pg (28.0-33.3); Mean Corpuscular Volume 91.2 fL (83.0-100.0); Mean Platelet Volume 8.7 fL (9.4-12.4); Monocytes # 0.7 K/mcL (0.0-1.3); Monocytes % 12.7 %; Neutrophils # 3.4 K/mcL (1.6-8.9); Platelet Count 196 K/mcL (140-400); Red Blood Count 3.87 M/mcL (3.82-4.97); Red Cell Distribution Width 14.8 % (11.5-14.5); Segmented Neutrophils % 65.7 %
[2017-02-20 04:41] LABS: INR 3.2; Prothrombin Time 35.4 Seconds (9.4-12.1)
[2017-02-20 04:51] LABS: Hemoglobin 11.8 g/dL (11.5-15.4)
[2017-02-20 04:54] LABS: Alanine Aminotransferase 25 Units/L (0-55); Albumin 3.3 g/dL (3.5-5.0); Albumin/Globulin Ratio 1.4 (1.1-2.2); Alkaline Phosphatase 52 Units/L (38-126); Aspartate Amino Transferase 25 Units/L (5-34); BUN/Creatinine Ratio 15 (6-26); Bilirubin,Total 0.4 mg/dL (0.2-1.2); Blood Urea Nitrogen 13 mg/dL (7-20); Calcium 8.8 mg/dL (8.6-10.8); Carbon Dioxide 30 mEq/L (19-29); Chloride 104 mEq/L (98-109); Globulin 2.4 g/dL (2.4-3.5); Glucose 89 mg/dL (70-99); Osmolality,Calculated 288 (280-300); Potassium 3.8 mEq/L (3.5-4.5); Sodium 139 mEq/L (136-145); Total Protein 5.7 g/dL (6.0-8.3); eGFR For African Americans > 60 (> 60); eGFR For Non-African Americans > 60 (> 60)
--- NOTE | 2017-02-20 08:21 | Event Note ---
Date of Encounter: 02/20/17 Time of Encounter: 08:18 - Cardiology Event Note S/p 4 doses of sotalol. Remains in atrial fibrillation. HR in the 70's. Plan for DCCV today as discussed. Coumadin dosing per pharmacy. INR 3.2. Goal INR 2.0 -3.0 for mechanical aortic valve.
[2017-02-20] MEDS: Tiotropium 18 MCG inhalation IH SCH (08:33)
[2017-02-20] MEDS: Folic Acid 1 MG TABLET PO SCH (09:25)
[2017-02-20] MEDS: metroNIDAZOLE 500 MG TABLET PO SCH (09:25)
[2017-02-20] MEDS: Spironolactone 25 MG TABLET PO SCH (09:26)
[2017-02-20] MEDS: Ascorbic Acid 500 MG TABLET PO SCH (09:26)
[2017-02-20] MEDS: ELUXADOLINE 100 MG PO SCH (09:29)
[2017-02-20] MEDS ORDERED: Ondansetron 4 MG/2 ML VIAL IVP PRN (09:35)
[2017-02-20] MEDS ORDERED: 0.9 % Sodium Chloride 500 ML IVC ONE (12:44)
[2017-02-20] MEDS ORDERED: *HR* FentaNYL (PF) 100 MCG/2 ML VIAL IVP PRN (12:44)
--- NOTE | 2017-02-20 13:06 | Electrocardiograph Report ---
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
[2017-02-20] MEDS: *HR* Midazolam HCl 5 MG/5 ML VIAL IVP PRN ×2 (13:20→13:25)
[2017-02-20] MEDS: *HR* FentaNYL (PF) 100 MCG/2 ML VIAL IVP PRN ×2 (13:20→13:25)
--- NOTE | 2017-02-20 13:39 | Electrocardiograph Report ---
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
--- NOTE | 2017-02-20 13:42 | Electrocardiograph Report ---
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
--- NOTE | 2017-02-20 15:04 | Event Note ---
Date of Encounter: 02/20/17 Time of Encounter: 15:04 - Cardiology Event Note Ms. Diamond converted to NSR with DCCV. She is scheduled for her 5th dose of sotalol this afternoon. If QTc remains normal she is ok for d/c home from cardiology standpoint. We will schedule out-pt f/u in two weeks. Call with questions.
--- NOTE | 2017-02-20 15:24 | Discharge Summary ---
Date of Encounter: 02/20/17 Time of Encounter: 15:21 - Discharge Diagnosis (1) Atrial fibrillation Priority: Primary Status: Chronic Qualifiers: Atrial fibrillation type: paroxysmal Qualified Code(s): I48.0 - Paroxysmal atrial fibrillation (2) History of mechanical aortic valve replacement Priority: Secondary Status: Chronic (3) COPD (chronic obstructive pulmonary disease) Priority: Secondary Status: Chronic Qualifiers: COPD type: unspecified COPD Qualified Code(s): J44.9 - Chronic obstructive pulmonary disease, unspecified (4) HTN (hypertension) Priority: Secondary Status: Chronic Qualifiers: Hypertension type: essential hypertension Qualified Code(s): I10 - Essential (primary) hypertension - Discharge Medications Prescriptions: Sotalol [Betapace] 80 mg PO Q12H #60 tablet Home Medications: Buspirone HCl [Buspar] 10 mg PO BID PRN 04/07/16 [History] Calcium Carbonate [Calcium] 500 mg PO BID 04/07/16 [History] Digoxin [Lanoxin] 0.125 mg PO DAILY 04/07/16 [History] Furosemide [Lasix] 40 mg PO BID 04/07/16 [History] Hydroxychloroquine [Plaquenuil] 200 mg PO DAILY 04/07/16 [History] Lisinopril [Zestril] 10 mg PO DAILY 04/07/16 [History] Multivitamin [Multi-Day Vitamins] 1 tab PO DAILY 04/07/16 [History] Pramipexole Di-HCl [Pramipexole Dihydrochloride] 0.125 mg PO HS 04/07/16 [ History] Pravastatin Sodium [Pravachol] 20 mg PO HS 04/07/16 [History] Spironolactone [Aldactone] 25 mg PO DAILY 04/07/16 [History] Tiotropium [Spiriva] 1 cap IH DAILY 04/07/16 [History] Trazodone HCl 150 mg PO HS 04/07/16 [History] amLODIPine [Norvasc] 5 mg PO DAILY 04/07/16 [History] rOPINIRole [Requip] 1 mg PO HS 04/07/16 [History] Ascorbate Calcium [Vitamin C] 500 mg PO DAILY 10/06/16 [History] Methotrexate [Otrexup] 20 mg PO FR 10/06/16 [History] Metoprolol [Lopressor] 12.5 mg PO BID 10/06/16 [History] Potassium 99 mg PO DAILY 10/06/16 [History] Sertraline [Zoloft] 50 mg PO DAILY 10/06/16 [History] Warfarin [Coumadin] 6.5 mg PO DAILY 10/06/16 [History] Ciprofloxacin [Cipro] 500 mg PO BID 02/16/17 [History] Eluxadoline [Viberzi] 100 mg PO DAILY 02/16/17 [History] Ferrous Sulfate [Iron] 325 mg PO DAILY 02/16/17 [History] Folic Acid 1 mg PO DAILY 02/16/17 [History] metroNIDAZOLE [Flagyl] 500 mg PO BID 02/16/17 [History] Sotalol [Betapace] 80 mg PO Q12H #60 tablet 02/20/17 [Rx] Allergies/Adverse Reactions: Allergies No Known Allergies Allergy (Verified 02/16/17 15:09) Procedures/tests Complete & Pending: Procedures Performed prior 72 hours Category Date Time Status ECG 12 lead ECG [ECG] AM 0600 Y 02/19/17 06:00 Completed ECG 12 lead ECG [ECG] AM 0600 Y 02/20/17 06:00 Completed ECG 12 lead ECG [ECG] AM 0600 Y 02/21/17 06:00 Ordered ECG 12 lead ECG [ECG] Routine Y 02/18/17 16:36 Completed ECG 12 lead ECG [ECG] Routine Y 02/19/17 16:39 Completed ECG 12 lead ECG [ECG] Routine Y 02/20/17 12:31 Completed EV MAICOL transesophageal echo Routine Y 02/18/17 11:00 Completed EV cardioversion Routine Y 02/20/17 08:17 Completed Date of admission: 02/17/17 18:28 Primary care physician: Raúl English Discharging clinician: Titi Maldonado - Patient Status Disposition: Home, Self-Care Condition: Good Functional capacity at discharge: independent ambulation Overall status at discharge: patient is progressing back to baseline - Discharge Instructions Follow Up With: Raúl English DO [Primary Care Provider] - - Diet and Activity Activity: increase activity as tolerated Diet: low fat, low cholesterol Interval History: Ms. Daimond is a 66 year old female past medical history of hypertension fibrillation ablation 1999 mechanical AVR 1998 COPD 2 L oxygen history of diverticulitis. According to the patient on she began to feel fatigued short of breath palpitations on exertion. The symptoms would improve with rest. This continued for the next few days. This morning she states she continued to have palpitations and fatigue however she felt she was not improving and actually experiencing symptoms of rest. She did contact her primary care physician however was unable to reach them. 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 Upon arrival to the ER and EKG atrial fibrillation heart rate 80s to 90s however will to 120s on exertion. Lab work did reveal elevated INR at 4.9 Patient is on Coumadin for mechanical valve. Chest x-ray did not reveal any acute process She denies any fevers or chills. She does admit to a brief feeling of chest pressure midsternally nonradiating which resolved on his own after a few minutes a couple days ago. She also had experience abdominal pains cramping diarrhea she went to see her primary care who prescribed Cipro and Flagyl for diverticulitis flare. She states her abdominal symptoms have improved. ER physician speak with cardiology Dr. Bautista who will cardiovert patient in a.m. patient has been admitted for further work up evaluation. Presently the patient does not appear to be any respiratory distress she denies any chest pain she is atrial fib on the monitor rate 80-90 rest her vitals are stable. Lung sounds are clear heart sounds irregular S1-S2 with click with no rubs gallops murmurs noted. No pedal edema abdomen soft nontender presently she is hemodynamically stableMs. Diamond is a 66 year old female past medical history of hypertension fibrillation ablation 1999 mechanical AVR 1998 COPD 2 L oxygen history of diverticulitis. According to the patient on she began to feel fatigued short of breath palpitations on exertion. The symptoms would improve with rest. This continued for the next few days. This morning she states she continued to have palpitations and fatigue however she felt she was not improving and actually experiencing symptoms of rest. She did contact her primary care physician however was unable to reach them. 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 Upon arrival to the ER and EKG atrial fibrillation heart rate 80s to 90s however will to 120s on exertion. Lab work did reveal elevated INR at 4.9 Patient is on Coumadin for mechanical valve. Chest x-ray did not reveal any acute process She denies any fevers or chills. She does admit to a brief feeling of chest pressure midsternally nonradiating which resolved on his own after a few minutes a couple days ago. She also had experience abdominal pains cramping diarrhea she went to see her primary care who prescribed Cipro and Flagyl for diverticulitis flare. She states her abdominal symptoms have improved. ER physician speak with cardiology Dr. Bautista who will cardiovert patient in a.m. patient has been admitted for further work up evaluation. Presently the patient does not appear to be any respiratory distress she denies any chest pain she is atrial fib on the monitor rate 80-90 rest her vitals are stable. Lung sounds are clear heart sounds irregular S1-S2 with click with no rubs gallops murmurs noted. No pedal edema abdomen soft nontender presently she is hemodynamically stable Hospital course: Patient history of A. fib with ablation in 2009.Patient presented with A. fib with RVR. Patient has a history of congenital aortic was disease and aortic wall repair at the age of her 17 years. She has a mechanical aortic wall replacement in 1998. During this hospitalization patient was anticoagulated with warfarin and her INR was supratherapeutic. Her warfarin was kept on hold. Her INR is back to therapeutic limits. Patient underwent direct cardioversion after trans-esophageal echocardiogram. She was started on sotalol. Plan: Patient can go home today. Sotalol prescription rented and given to the patient. Patient is a appointment with the cardiology in next 2-3 weeks. EKG will be done around 4 PM and if that is within the acceptable range then patient can go home. All QUESTIONS answered - Time Spent with Patient Total time spent providing and/or coordinating discharge services: - Constitutional Vitals: Temp Pulse Resp BP Pulse Ox 97.8 F 70 16 123/82 98 02/20/17 12:43 02/20/17 12:43 02/20/17 12:43 02/20/17 12:43 02/20/17 12:43 General appearance: Present: A&O X 3, pleasant, no acute distress, answers questions appropriately - Head Head exam: Present: atraumatic, normocephalic - Eye Eye exam: Present: PERRL, conjuntiva pink, sclera anicteric Pupils: Present: PERRL - Neck Neck exam general surgery: Present: supple, trachea midline. Absent: lymphadenopathy - Respiratory Respiratory exam: Present: CTAB. Absent: accessory muscle use, rales, rhonchi, wheezes - Cardiovascular Cardiovascular exam: Present: RRR, +S1, +S2. Absent: diastolic murmur, gallop, rubs, systolic murmur - GI/Abdominal GI/Abdominal exam: Present: normal bowel sounds, soft, no peritoneal signs. Absent: distended, tenderness - Extremities Exam Extremities exam: Present: warm, radial pulses palpable and symetrical. Absent : calf tenderness, cyanotic, pedal edema - Neurological Exam Neurological exam: Present: CN II-XII intact, oriented X3, no focal deficits. Absent: pronater drift, facial droop, speech deficit - Skin Skin exam: Present: dry, intact - VTE Reasons for not Prescribing Prophylaxis: Not indicated-Anticoagulated or INR therapeutic Documentation of Mechanical Device: Graduated compression elastic hosiery
[2017-02-20 16:42] VITALS: BP 114/82
[2017-02-20] MEDS ORDERED: *HR* Warfarin 3 MG TABLET PO ONE (18:00)
--- NOTE | 2017-02-23 09:56 | Electrocardiograph Report ---
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
--- NOTE | 2017-02-23 09:58 | Electrocardiograph Report ---
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
== END 2017-02-20 17:14 | disposition home or self-care (01) | DRG 309 ==
LOC: EMEROO 12:30 → 3BNU 12:30 → SUATTDRO 15:18 → 3BNU 16:45
PROVIDERS: ADMIT Internal Medicine; ATTEND Nurse Practitioner Family

== ENCOUNTER 2017-03-24 08:53 | Inpatient (IN) ==
[2017-03-24 10:15] LABS: Basophils % 0.5 %; Eosinophils # 0.1 K/mcL (0.0-0.6); Eosinophils % 1.2 %; Hematocrit 35.8 % (35.3-44.9); Hemoglobin 11.8 g/dL (11.5-15.4); Immature Granulocytes % 0.2 % (0-4); Mean Corpuscular Hemoglobin 29.6 pg (28.0-33.3); Mean Corpuscular Volume 89.9 fL (83.0-100.0); Mean Platelet Volume 9.3 fL (9.4-12.4); Monocytes # 0.4 K/mcL (0.0-1.3); Monocytes % 7.7 %; Neutrophils # 4.1 K/mcL (1.6-8.9); Platelet Count 165 K/mcL (140-400); Red Blood Count 3.98 M/mcL (3.82-4.97); Red Cell Distribution Width 14.6 % (11.5-14.5); Segmented Neutrophils % 72.4 %
[2017-03-24] MEDS ORDERED: Acetaminophen 325 MG TABLET PO PRN (10:33)
[2017-03-24] MEDS ORDERED: Naloxone 0.4 MG/ML INJ IVP PRN (10:33)
--- NOTE | 2017-03-24 10:39 | History & Physical Report ---
Date of Encounter: 03/24/17 Time of Encounter: 10:15 24 Hour HP Update - Instructions Instructions: If the History and Physical is less than 30 days old and was completed prior to A.M. admission and or procedure and has NOT been updated on calendar day of procedure please complete this update prior to performing procedure. - Update Patient reports changes in Medical Condition: No Changes in examination, assessment, or condition: No Changes in Medication: Yes - Pre-Operative Checklist Is VTE Prophylaxis Indicated?: NO (anticoagulated on Coumadin) - Attending Attestation For full H&P, please refer to [facility] clinic note by Dr. Benedict Power on 03/18/17. Presents for tikosyn initiation for symptomatic persistent atrial fibrillation. Hx of failed sotalol therapy--last dose of sotalol 03/20/17 at 2100. Baseline ECG today shows: afib HR 77 QRS 103 QT/QTc 362,394 ms Kidney function normal. Calculated creatinine clearance=65.89 mL/min. Discussed and reviewed with Dr. Benedict Power who will start Tikosyn 500 mcg Q12H. Given possible QTc prolongation, will hold home Trazadone. Will need inpatient monitoring for at least 72 hours after starting Tikosyn. Obtain ECG 2-3 hours after each dose of TIkosyn. May require DCCV if does not convert to NSR by discharge. Anticoagulated on Coumadin (hx of mechanical AV), per review of [facility], INRs have been therapeutic for past 30 days. PCP monitors INRs. Pharmacy to dose Coumadin as inpatient. The patient was discussed and reviewed with Dr. Benedict Power who agrees with plan as stated above.
[2017-03-24 10:48] LABS: Alanine Aminotransferase 18 Units/L (0-55); Albumin 3.9 g/dL (3.5-5.0); Albumin/Globulin Ratio 1.4 (1.1-2.2); Alkaline Phosphatase 68 Units/L (38-126); Aspartate Amino Transferase 24 Units/L (5-34); BUN/Creatinine Ratio 18 (6-26); Bilirubin,Total 0.8 mg/dL (0.2-1.2); Blood Urea Nitrogen 17 mg/dL (7-20); Calcium 9.4 mg/dL (8.6-10.8); Carbon Dioxide 28 mEq/L (19-29); Chloride 103 mEq/L (98-109); Globulin 2.8 g/dL (2.4-3.5); Glucose 89 mg/dL (70-99); Osmolality,Calculated 295 (280-300); Potassium 4.7 mEq/L (3.5-4.5); Sodium 142 mEq/L (136-145); Total Protein 6.7 g/dL (6.0-8.3); eGFR For African Americans > 60 (> 60); eGFR For Non-African Americans 58 (> 60)
[2017-03-24 11:54] LABS: INR 2.8; Prothrombin Time 30.6 Seconds (9.4-12.1)
--- NOTE | 2017-03-24 15:36 | Electrocardiograph Report ---
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
[2017-03-24] MEDS ORDERED: Warfarin perPT PO PRN (18:00)
[2017-03-24] MEDS ORDERED: *HR* Warfarin 5 MG TABLET PO SCH (18:00)
[2017-03-24] MEDS: Furosemide 20 MG TABLET PO SCH (20:15)
[2017-03-24] MEDS: rOPINIRole 1 MG TABLET PO SCH (20:15)
[2017-03-25 04:38] LABS: INR 3.3; Prothrombin Time 36.9 Seconds (9.4-12.1)
[2017-03-25] MEDS: Tiotropium 18 MCG inhalation IH SCH (08:04)
[2017-03-25] MEDS: Ascorbic Acid 500 MG TABLET PO SCH (08:34)
[2017-03-25] MEDS: Furosemide 20 MG TABLET PO SCH ×2 (08:34→20:23)
[2017-03-25] MEDS: Spironolactone 25 MG TABLET PO SCH (08:34)
[2017-03-25] MEDS: Multivit/Ca/Min/Fe/FA 1 TAB TABLET PO SCH (08:34)
[2017-03-25] MEDS: Folic Acid 1 MG TABLET PO SCH (08:35)
[2017-03-25] MEDS: amLODIPine 5 MG TABLET PO SCH (08:35)
[2017-03-25] MEDS: ELUXADOLINE 100 MG PO SCH (08:38)
[2017-03-25] MEDS ORDERED: NON-FORMULARY MEDICATION 1 EACH EACH (Potassium [Potassium] 99 MG) PO SCH (09:00)
[2017-03-25] MEDS ORDERED: *HR* Digoxin 0.125 MG TABLET PO SCH (09:00)
--- NOTE | 2017-03-25 10:05 | Cardiology Progress Note ---
Date of Encounter: 03/25/17 Time of Encounter: 10:00 Assessment and Plan (1) Atrial fibrillation Current Visit: Yes Status: Chronic Presented on 03/24/17 for Tikosyn initiation due to symptomatic AF; hx of failed sotalol. Admitted to ICU bed due to overflow. Baseline ECG afib HR 77 QRS QT/QTc 363, 394 ms. QTc remained stable s/p 1st dose, 500 mcg Tikosyn Q12H continued. ECG after 2nd dose Tikosyn: AF HR 85 QRS 101 ms QT/QTc 403, 445ms. Next dose due today at 12 noon. Kidney function normal. Anticoagulated on Coumadin. Will need inpatient monitoring for at least 72 hours after starting Tikosyn. Obtain ECG 2-3 hours after each dose of TIkosyn to monitor QTc; if >500 ms may need to adjust dose. May require DCCV if does not convert to NSR by discharge, tentative Thursday AM. Anticoagulated on Coumadin (hx of mechanical AV), PCP monitors INR. Unfortunately INRs have been subtherapeutic within the past 30 days (1.66 on 06/09 and 1.75 on 03/10/17), therefore patient will require MAICOL guided DCCV if does not convert to NSR. Will continue to monitor. Qualifiers: Atrial fibrillation type: persistent Qualified Code(s): I48.1 - Persistent atrial fibrillation (2) Encounter for monitoring anti-arrhythmic therapy Current Visit: Yes Status: Acute Plan as above. (3) History of mechanical aortic valve replacement Current Visit: Yes Status: Chronic Anticoagulated on Coumadin. PCP monitors INR. Obtained INR results from PCP within the last few weeks---INR 1.66 on 03/02/17 and 1.75 on 03/10/17. INR therapeutic today, continue coumadin. Monitored by pharmacy as inpatient. (4) HTN (hypertension) Current Visit: No Status: Chronic Controlled as inpatient, will continue to monitor. Qualifiers: Hypertension type: essential hypertension Qualified Code(s): I10 - Essential (primary) hypertension Discussion w patient/family: The assessment and plan as outlined above was discussed with the patient and/or family members who expressed understanding and agreement. All questions were answered. Thank you for involving us in the care of your patient. Please call with any questions. The patient was discussed and reviewed with Dr. Benedict Power who agrees with plan as stated above. Subjective Principal diagnosis: Afib, Tikosyn Interval history: Seen and examined. Continues to be in atrial fibrillation, rate controlled in the 70s. S/p 2 doses of Tikosyn this AM, next dose scheduled for 12 noon. Denies any complaints or concerns this AM. Objective Vital Signs, Last 4 Hours Temp Pulse Resp BP Pulse Ox 03/25/17 08:06 16 97 03/25/17 08:00 99.0 F 94 16 122/75 99 03/25/17 07:40 99.0 F General: Conversant, No Apparent Distress HEENT: Atraumatic, Normocephaly, Mucus Membranes Moist Cardiac: Other (irregularly irregular) Lungs: Normal Breath Sounds Neuro: Alert and responsive Abdomen: Soft Skin: No rashes noted on visualized skin Musculoskeletal: No Chest Wall Tenderness Extremities: No Edema, Normal Pulses Results 03/24/17 10:08 03/24/17 10:08 Lab Results 03/24/17 03/24/17 03/24/17 10:08 10:08 10:08 WBC 5.7 Hgb 11.8 Hct 35.8 Plt Count 165 INR 2.8 Sodium 142 Potassium 4.7 H Chloride 103 Carbon Dioxide 28 BUN 17 Creatinine 0.96 Glucose 89 Calcium 9.4 Total Bilirubin 0.8 AST 24 ALT 18 Alkaline Phosphatase 68 03/25/17 04:11 WBC Hgb Hct Plt Count INR 3.3 Sodium Potassium Chloride Carbon Dioxide BUN Creatinine Glucose Calcium Total Bilirubin AST ALT Alkaline Phosphatase Active Medications Acetaminophen (Tylenol) 650 mg PO Q6HR PRN PRN Reason: Mild Pain (1-3) Stop: 09/23/17 10:34 Amlodipine Besylate (Norvasc) 5 mg PO DAILY [facility] PRN Reason: Protocol Stop: 09/24/17 09:01 Last Admin: 03/25/17 08:35 Dose: 5 mg Ascorbic Acid (Vitamin C) 500 mg PO DAILY [facility] Stop: 09/24/17 09:01 Last Admin: 03/25/17 08:34 Dose: 500 mg Buspirone HCl (Buspar) 10 mg PO BID PRN PRN Reason: Anxiety Calcium Carbonate (Tums) 500 mg PO BID [facility] Stop: 09/23/17 21:01 Last Admin: 03/25/17 08:34 Dose: 500 mg Digoxin (Lanoxin) 0.125 mg PO DAILY [facility] Stop: 09/24/17 09:01 Last Admin: 03/25/17 08:35 Dose: 0.125 mg Dofetilide (Tikosyn) 0.5 mg PO Q12H [facility] Stop: 09/23/17 12:01 Last Admin: 03/25/17 00:20 Dose: 0.5 mg Ferrous Sulfate (Ferrous Sulfate) 325 mg PO DAILY [facility] Stop: 09/24/17 09:01 Last Admin: 03/25/17 08:34 Dose: 325 mg Folic Acid (Folic Acid) 1 mg PO DAILY [facility] Stop: 09/24/17 09:01 Last Admin: 03/25/17 08:35 Dose: 1 mg Furosemide (Lasix) 40 mg PO BID [facility] Stop: 09/23/17 21:01 Last Admin: 03/25/17 08:34 Dose: 40 mg Hydroxychloroquine Sulfate (Plaquenuil) 200 mg PO DAILY [facility] Stop: 09/24/17 09:01 Last Admin: 03/25/17 08:35 Dose: 200 mg Lisinopril (Zestril) 10 mg PO DAILY [facility] PRN Reason: Protocol Stop: 09/24/17 09:01 Last Admin: 03/25/17 08:36 Dose: 10 mg Methotrexate (Otrexup) 20 mg PO FR [facility] Stop: 09/26/17 14:11 Metoprolol Tartrate (Lopressor) 12.5 mg PO BID [facility] Stop: 09/23/17 21:01 Last Admin: 03/25/17 08:35 Dose: 12.5 mg Multivitamins/Calcium (Thera M Plus) 1 tab PO DAILY [facility] Stop: 09/24/17 09:01 Last Admin: 03/25/17 08:34 Dose: 1 tab Naloxone HCl (Narcan) 0.4 mg IVP Q2MIN PRN PRN Reason: Opioid Reversal Stop: 09/23/17 10:34 Ondansetron HCl (Zofran) 4 mg IVP Q8HR PRN PRN Reason: Nausea And Vomiting Stop: 09/23/17 10:34 Pharmacy Profile Note (Patient Taking Own Medication) 0 each PO DAILY [facility] Stop: 09/24/17 09:01 Last Admin: 03/25/17 08:38 Dose: Not Given Pramipexole Dihydrochloride (Mirapex) 0.125 mg PO HS [facility] Stop: 09/23/17 21:01 Last Admin: 03/24/17 21:09 Dose: 0.125 mg Ropinirole HCl (Requip) 1 mg PO HS [facility] Stop: 09/23/17 21:01 Last Admin: 03/24/17 20:15 Dose: 1 mg Sertraline HCl (Zoloft) 50 mg PO DAILY [facility] Stop: 09/24/17 09:01 Last Admin: 03/25/17 08:36 Dose: 50 mg Simvastatin (Zocor) 10 mg PO HS [facility] Stop: 09/23/17 21:01 Last Admin: 03/24/17 20:15 Dose: 10 mg Spironolactone (Aldactone) 25 mg PO DAILY [facility] Stop: 09/24/17 09:01 Last Admin: 03/25/17 08:34 Dose: 25 mg Tiotropium Amma (Spiriva) 18 mcg IH DAILY [facility] Stop: 09/24/17 09:01 Last Admin: 03/25/17 08:04 Dose: 18 mcg Warfarin Sodium (Coumadin Perpt) 1 each PO DAILY@1800 PRN PRN Reason: SEE COMMENTS Stop: 09/23/17 18:01 Warfarin Sodium (Coumadin) 5 mg PO 1800 [facility] Stop: 09/23/17 18:01 Last Admin: 03/24/17 18:21 Dose: 5 mg - Imaging and Cardiology Echo: report reviewed Cardiac cath: report reviewed Other Results: 12 hour tele: avg HR=85 afib. - EKG Interpretation EKG results cardiology: personally reviewed - VTE Reasons for not Prescribing Prophylaxis: Not indicated-Anticoagulated or INR therapeutic Consult Discharge Plan - Plan Referrals: Raúl English DO [Primary Care Provider] -
[2017-03-25] MEDS: Ondansetron 4 MG/2 ML VIAL IVP PRN ×2 (10:51→21:32)
[2017-03-25] MEDS: rOPINIRole 1 MG TABLET PO SCH (20:23)
--- NOTE | 2017-03-25 20:39 | Electrocardiograph Report ---
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
--- NOTE | 2017-03-25 21:58 | Electrocardiograph Report ---
[place] [address] Test Date: 2017-03-25 Pat Name: Charmaine Diamond Department: 109 Room: 2NE20 Gender: F Adjutant General: MARCELLA : 1950 Requested By: Benedict Power Order Number: [id number] Reading MD: Rubi Alford Measurements Intervals [place] Rate: 85 P: [place]: 0 QRS: 72 QRSD: 101 T: 54 QT: 403 QTc: 445 Interpretive Statements ATRIAL FIBRILLATION NONSPECIFIC ST & T-WAVE ABNORMALITY ABNORMAL RHYTHM ECG Electronically Signed On 03-25-2017 21:56:51 EDT by Rubi Alford
[2017-03-25] MEDS ORDERED: *HR* Promethazine 25 MG/ML VIAL IVP ONE (22:37)
[2017-03-26 04:07] LABS: INR 2.6; Prothrombin Time 29.1 Seconds (9.4-12.1)
[2017-03-26] MEDS: Tiotropium 18 MCG inhalation IH SCH (08:20)
[2017-03-26] MEDS: amLODIPine 5 MG TABLET PO SCH (10:24)
[2017-03-26] MEDS: Spironolactone 25 MG TABLET PO SCH (10:24)
[2017-03-26] MEDS: Furosemide 20 MG TABLET PO SCH ×2 (10:25→20:33)
--- NOTE | 2017-03-26 10:51 | Cardiology Progress Note ---
Date of Encounter: 03/26/17 Time of Encounter: 10:10 Assessment and Plan (1) Atrial fibrillation Current Visit: Yes Status: Chronic Presented on 03/24/17 for Tikosyn initiation due to symptomatic AF; hx of failed sotalol. Baseline ECG afib HR 77 QRS QT/QTc 363, 394 ms. QTc remained stable s/p 1st dose, 500 mcg Tikosyn Q12H continued. ECG after 4th dose Tikosyn: AF HR 61 QRS 102 ms QT/QTc 418, 421ms. Next dose due today at 12 noon. Reviewed ECG with Dr. Benedict Power, continue current dose. Kidney function normal. Anticoagulated on Coumadin. Will need inpatient monitoring for at least 72 hours after starting Tikosyn. Obtain ECG 2-3 hours after each dose of TIkosyn to monitor QTc; if >500 ms may need to adjust dose. Discussed with Dr. Benedict Power; plan for MAICOL guided DCCV today. Patient is agreeable. Anticoagulated on Coumadin (hx of mechanical AV), PCP monitors INR. Unfortunately INRs have been subtherapeutic within the past 30 days (1.66 on 06/09 and 1.75 on 03/10/17), therefore patient will require MAICOL guided DCCV if does not convert to NSR. Will continue to monitor. Qualifiers: Atrial fibrillation type: persistent Qualified Code(s): I48.1 - Persistent atrial fibrillation (2) Encounter for monitoring anti-arrhythmic therapy Current Visit: Yes Status: Acute Plan as above. (3) History of mechanical aortic valve replacement Current Visit: Yes Status: Chronic Anticoagulated on Coumadin. PCP monitors INR. Obtained INR results from PCP within the last few weeks---INR 1.66 on 03/02/17 and 1.75 on 03/10/17. INR therapeutic today, continue coumadin. Monitored by pharmacy as inpatient. (4) HTN (hypertension) Current Visit: No Status: Chronic Controlled as inpatient, will continue to monitor. Qualifiers: Hypertension type: essential hypertension Qualified Code(s): I10 - Essential (primary) hypertension Discussion w patient/family: The assessment and plan as outlined above was discussed with the patient and/or family members who expressed understanding and agreement. All questions were answered. Thank you for involving us in the care of your patient. Please call with any questions. The patient was discussed and reviewed with Dr. Benedict Power who agrees with plan as stated above. Subjective Principal diagnosis: Afib, Tikosyn Interval history: Seen and examined. Continues to be in atrial fibrillation, rate controlled in the 70s. S/p 4 doses of Tikosyn this AM, next dose scheduled for 12 noon. Denies any complaints or concerns this AM. Objective Vital Signs, Last 4 Hours Temp Pulse Resp BP Pulse Ox 03/26/17 08:22 16 91 03/26/17 07:34 98.1 F 93 16 110/65 97 General: Conversant, No Apparent Distress HEENT: Atraumatic, Normocephaly, Mucus Membranes Moist Cardiac: Other (irregularly irregular) Lungs: Normal Breath Sounds Neuro: Alert and responsive Abdomen: Soft Skin: No rashes noted on visualized skin Musculoskeletal: No Chest Wall Tenderness Extremities: No Edema, Normal Pulses Results 03/24/17 10:08 03/24/17 10:08 Lab Results 03/26/17 02:50 INR 2.6 Active Medications Acetaminophen (Tylenol) 650 mg PO Q6HR PRN PRN Reason: Mild Pain (1-3) Stop: 09/23/17 10:34 Amlodipine Besylate (Norvasc) 5 mg PO DAILY [facility] PRN Reason: Protocol Stop: 09/24/17 09:01 Last Admin: 03/26/17 10:24 Dose: 5 mg Ascorbic Acid (Vitamin C) 500 mg PO DAILY [facility] Stop: 09/24/17 09:01 Last Admin: 03/25/17 08:34 Dose: 500 mg Buspirone HCl (Buspar) 10 mg PO BID PRN PRN Reason: Anxiety Calcium Carbonate (Tums) 500 mg PO BID [facility] Stop: 09/23/17 21:01 Last Admin: 03/25/17 20:23 Dose: 500 mg Dofetilide (Tikosyn) 0.5 mg PO Q12H [facility] Stop: 09/23/17 12:01 Last Admin: 03/26/17 00:01 Dose: 0.5 mg Ferrous Sulfate (Ferrous Sulfate) 325 mg PO DAILY [facility] Stop: 09/24/17 09:01 Last Admin: 03/25/17 08:34 Dose: 325 mg Folic Acid (Folic Acid) 1 mg PO DAILY [facility] Stop: 09/24/17 09:01 Last Admin: 03/25/17 08:35 Dose: 1 mg Furosemide (Lasix) 40 mg PO BID [facility] Stop: 09/23/17 21:01 Last Admin: 03/26/17 10:25 Dose: 40 mg Hydroxychloroquine Sulfate (Plaquenuil) 200 mg PO DAILY [facility] Stop: 09/24/17 09:01 Last Admin: 03/26/17 10:24 Dose: 200 mg Lisinopril (Zestril) 10 mg PO DAILY [facility] PRN Reason: Protocol Stop: 09/24/17 09:01 Last Admin: 03/26/17 10:24 Dose: 10 mg Methotrexate (Otrexup) 20 mg PO FR [facility] Stop: 09/26/17 14:11 Multivitamins/Calcium (Thera M Plus) 1 tab PO DAILY [facility] Stop: 09/24/17 09:01 Last Admin: 03/25/17 08:34 Dose: 1 tab Naloxone HCl (Narcan) 0.4 mg IVP Q2MIN PRN PRN Reason: Opioid Reversal Stop: 09/23/17 10:34 Ondansetron HCl (Zofran) 4 mg IVP Q8HR PRN PRN Reason: Nausea And Vomiting Stop: 09/23/17 10:34 Last Admin: 03/25/17 21:32 Dose: 4 mg Pharmacy Profile Note (Patient Taking Own Medication) 0 each PO DAILY [facility] Stop: 09/24/17 09:01 Last Admin: 03/25/17 08:38 Dose: Not Given Pramipexole Dihydrochloride (Mirapex) 0.125 mg PO HS [facility] Stop: 09/23/17 21:01 Last Admin: 03/25/17 21:35 Dose: 0.125 mg Ropinirole HCl (Requip) 1 mg PO HS [facility] Stop: 09/23/17 21:01 Last Admin: 03/25/17 20:23 Dose: 1 mg Sertraline HCl (Zoloft) 50 mg PO DAILY [facility] Stop: 09/24/17 09:01 Last Admin: 03/26/17 10:25 Dose: 50 mg Simvastatin (Zocor) 10 mg PO HS [facility] Stop: 09/23/17 21:01 Last Admin: 03/25/17 20:23 Dose: 10 mg Spironolactone (Aldactone) 25 mg PO DAILY [facility] Stop: 09/24/17 09:01 Last Admin: 03/26/17 10:24 Dose: 25 mg Tiotropium Jber (Spiriva) 18 mcg IH DAILY [facility] Stop: 09/24/17 09:01 Last Admin: 03/26/17 08:20 Dose: 18 mcg Warfarin Sodium (Coumadin Perpt) 1 each PO DAILY@1800 PRN PRN Reason: SEE COMMENTS Stop: 09/23/17 18:01 Warfarin Sodium (Coumadin) 5 mg PO 1800 [facility] Stop: 09/25/17 18:01 - Imaging and Cardiology Echo: report reviewed Other Results: 12 hour tele: avg HR=84 afib. - EKG Interpretation EKG results cardiology: personally reviewed - VTE Reasons for not Prescribing Prophylaxis: Not indicated-Anticoagulated or INR therapeutic Consult Discharge Plan - Plan Referrals: Raúl English DO [Primary Care Provider] - 04/06/17 11:15 am
[2017-03-26] MEDS ORDERED: Tetracaine/Benzocaine/Butamben 200MG/SPRAY (100SPY/BOT) MM ONE (11:15)
[2017-03-26] MEDS ORDERED: 0.9 % Sodium Chloride 500 ML IVC ONE ×2 (11:15→12:57)
[2017-03-26] MEDS: *HR* Midazolam HCl 5 MG/5 ML VIAL IVP PRN ×4 (11:50→12:20)
[2017-03-26] MEDS: *HR* FentaNYL (PF) 100 MCG/2 ML VIAL IVP PRN ×3 (11:50→12:20)
[2017-03-26] MEDS: Multivit/Ca/Min/Fe/FA 1 TAB TABLET PO SCH (13:41)
[2017-03-26] MEDS: Folic Acid 1 MG TABLET PO SCH (13:41)
[2017-03-26] MEDS: Ascorbic Acid 500 MG TABLET PO SCH (13:41)
[2017-03-26] MEDS: ELUXADOLINE 100 MG PO SCH (17:20)
[2017-03-26] MEDS ORDERED: *HR* Warfarin 5 MG TABLET PO SCH (18:00)
[2017-03-26] MEDS: rOPINIRole 1 MG TABLET PO SCH (20:33)
[2017-03-26] MEDS ORDERED: traZODone 50 MG TABLET PO PRN (21:30)
[2017-03-27 03:49] LABS: INR 1.8; Prothrombin Time 19.7 Seconds (9.4-12.1)
[2017-03-27 06:27] VITALS: BP 107/59
--- NOTE | 2017-03-27 07:45 | Electrocardiograph Report ---
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
--- NOTE | 2017-03-27 07:48 | Electrocardiograph Report ---
[place] [address] Test Date: 2017-03-26 Pat Name: Charmaine Diamond Department: 111 Room: 2NE20 Gender: F Quantitative Analyst: [id number] : 1950 Requested By: Benedict Power Order Number: [id number] Reading MD: Alvino Persaud MD Measurements Intervals [place] Rate: 90 P: [place]: 0 QRS: 51 QRSD: 102 T: 44 QT: 355 QTc: 402 Interpretive Statements ATRIAL FIBRILLATION Electronically Signed On 03-26-2017 19:58:30 EDT by Alvino Persaud MD
--- NOTE | 2017-03-27 07:48 | Electrocardiograph Report ---
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
--- NOTE | 2017-03-27 07:49 | Electrocardiograph Report ---
[place] [address] Test Date: 2017-03-26 Pat Name: Charmaine Diamond Department: 101 Room: 2NE20 Gender: F Kitchen Clerk: MARIELLA : 1950 Requested By: Benedict Power Order Number: [id number] Reading MD: Alvino Persaud MD Measurements Intervals [place] Rate: 110 P: [place]: 0 QRS: 41 QRSD: 112 T: 26 QT: 300 QTc: 365 Interpretive Statements ATRIAL FIBRILLATION WITH RAPID VENTRICULAR RESPONSE Electronically Signed On 03-26-2017 20:01:33 EDT by Alvino Persaud MD
[2017-03-27] MEDS: Multivit/Ca/Min/Fe/FA 1 TAB TABLET PO SCH (08:03)
[2017-03-27] MEDS: amLODIPine 5 MG TABLET PO SCH (08:03)
[2017-03-27] MEDS: Ascorbic Acid 500 MG TABLET PO SCH (08:05)
[2017-03-27] MEDS: Folic Acid 1 MG TABLET PO SCH (08:05)
[2017-03-27] MEDS: Spironolactone 25 MG TABLET PO SCH (08:05)
[2017-03-27] MEDS: Furosemide 20 MG TABLET PO SCH (08:05)
[2017-03-27] MEDS: ELUXADOLINE 100 MG PO SCH (08:06)
[2017-03-27] MEDS ORDERED: *HR* Digoxin 0.125 MG TABLET PO SCH (09:00)
[2017-03-27 09:57] LABS: INR 1.8; Prothrombin Time 19.5 Seconds (9.4-12.1)
[2017-03-27] MEDS ORDERED: *HR* Warfarin 7.5 MG TABLET PO ONE (10:04)
--- NOTE | 2017-03-27 10:05 | Discharge Summary ---
Date of Encounter: 03/27/17 Time of Encounter: 10:00 - Discharge Diagnosis (1) Atrial fibrillation Priority: Primary Status: Acute Comments: Failed Tikosyn. Rate control and anticoagulation. Qualifiers: Atrial fibrillation type: persistent Qualified Code(s): I48.1 - Persistent atrial fibrillation (2) Encounter for monitoring anti-arrhythmic therapy Priority: Primary Status: Acute (3) History of mechanical aortic valve replacement Priority: Secondary Status: Chronic Comments: INR 1.8 today; will give 7.5 mg coumadin now prior to discharge. INR's have been therapeutic >2.5 throughout admission. Patient will then resume Coumadin 5 mg daily, recheck INR on Thursday and f/u with PCP to determine future doses. Discussed with Dr. Benedict Power who agrees. (4) HTN (hypertension) Priority: Secondary Status: Chronic Qualifiers: Hypertension type: essential hypertension Qualified Code(s): I10 - Essential (primary) hypertension - Discharge Medications Home Medications: Buspirone HCl [Buspar] 10 mg PO BID PRN 04/07/16 [History] Calcium Carbonate [Calcium] 500 mg PO BID 04/07/16 [History] Digoxin [Lanoxin] 0.125 mg PO DAILY 04/07/16 [History] Furosemide [Lasix] 40 mg PO BID 04/07/16 [History] Hydroxychloroquine [Plaquenuil] 200 mg PO DAILY 04/07/16 [History] Lisinopril [Zestril] 10 mg PO DAILY 04/07/16 [History] Multivitamin [Multi-Day Vitamins] 1 tab PO DAILY 04/07/16 [History] Pramipexole Di-HCl [Pramipexole Dihydrochloride] 0.125 mg PO HS 04/07/16 [ History] Pravastatin Sodium [Pravachol] 20 mg PO HS 04/07/16 [History] Spironolactone [Aldactone] 25 mg PO DAILY 04/07/16 [History] Tiotropium [Spiriva] 1 cap IH DAILY 04/07/16 [History] Trazodone HCl 150 mg PO HS 04/07/16 [History] amLODIPine [Norvasc] 5 mg PO DAILY 04/07/16 [History] rOPINIRole [Requip] 1 mg PO HS 04/07/16 [History] Ascorbate Calcium [Vitamin C] 500 mg PO DAILY 10/06/16 [History] Methotrexate [Otrexup] 20 mg PO FR 10/06/16 [History] Metoprolol [Lopressor] 12.5 mg PO BID 10/06/16 [History] Potassium 99 mg PO DAILY 10/06/16 [History] Sertraline [Zoloft] 50 mg PO DAILY 10/06/16 [History] Warfarin [Coumadin] 5 mg PO DAILY 10/06/16 [History] Eluxadoline [Viberzi] 100 mg PO DAILY 02/16/17 [History] Ferrous Sulfate [Iron] 325 mg PO DAILY 02/16/17 [History] Folic Acid 1 mg PO DAILY 02/16/17 [History] Allergies/Adverse Reactions: Allergies No Known Allergies Allergy (Verified 02/16/17 15:09) Procedures/tests Complete & Pending: Procedures Performed prior 72 hours Category Date Time Status ECG 12 lead ECG [ECG] Routine Y 03/24/17 15:43 Completed ECG 12 lead ECG [ECG] Routine Y 03/25/17 02:47 Completed ECG 12 lead ECG [ECG] Routine Y 03/25/17 15:43 Completed ECG 12 lead ECG [ECG] Routine Y 03/26/17 02:15 Completed ECG 12 lead ECG [ECG] Routine Y 03/26/17 10:56 Completed ECG 12 lead ECG [ECG] Routine Y 03/26/17 12:32 Completed ECG 12 lead ECG [ECG] Stat Y 03/24/17 09:38 Completed EV irma guided cardioversion Routine Y 03/26/17 10:14 Completed Date of admission: 03/24/17 08:54 Primary care physician: Raúl English Discharging clinician: Aurelia Millan Anticipated date of discharge: 03/27/17 - Patient Status Disposition: Home, Self-Care Condition: Good Functional capacity at discharge: independent ambulation Overall status at discharge: patient is back to baseline - Discharge Instructions Follow Up With: Raúl English DO [Primary Care Provider] - 04/06/17 11:15 am Benedict Power MD [Partnered Physician] - (Office will call with appt date and time. ) Additional Instructions: Obtain INR on Thursday and follow-up with PCP to determine Coumadin dose - Diet and Activity Activity: resume usual activities as tolerated Diet: advance to your usual diet - Hospital Course Hospital course: Ms. Diamond is a 66 year old female who resented on 03/24/17 for Tikosyn initiation due to symptomatic AF; hx of failed sotalol and amiodarone. She underwent IRMA guided DCCV on 03/26/17; mechanical AV function/leaflet mobility was unchanged from IRMA in 2009. Successful DCCV to NSR with early recurrence to AFib, therefore tikosyn was discontinued. Discussed with Dr. Benedict Power, recommends rate control strategy. She was monitored overnight, home medications including digoxin and betablocker were resumed, avg HR overnight 85 afib. Labs, vital signs, and telemetry stable. All home medications resumed, sotalol discontinued last week. INRs have been therapeutic since admission (>2.5), was 1.8 this AM. Increased dose of Coumadin , 7.5 mg, given today prior to discharge, she will then resume 5 mg Sat/Sun and have INR re-drawn on Thursday and follow-up with PCP who monitors as outpatient. Discussed with Dr. Power who agrees with plan as stated above. Of note, she required IRMA prior to CV d/t subtherapuetic INR's prior to admission, education on coumadin therapy provided. All questions and concerns were addressed; Ms. Diamond verbalized understanding of all information provided and agrees with plan. She will follow-up in 2-[address] Benedict Power to determine if she is candidate for ablation. She is being prepped for discharge to home in stable condition. - Time Spent with Patient Total time spent providing and/or coordinating discharge services: 40 minutes Greater than 30 minutes Specific discharge activities: Resume activity as tolerated. Physical Examination Vital Signs, Last 4 Hours Temp Pulse Resp BP Pulse Ox 03/27/17 06:23 98.0 F 60 15 107/59 93 General: Conversant, No Apparent Distress HEENT: Atraumatic, Normocephaly, Mucus Membranes Moist Neck: No JVD, Normal carotid pulses Cardiac: Reg Rate and Rhythm, Normal S1 and S2, No Murmur Lungs: Normal Breath Sounds, No Wheeze, Rales, Rhonchi Neuro: Alert and responsive, No focal deficits noted Abdomen: Soft, Non-Tender Skin: No rashes noted on visualized skin Musculoskeletal: No Chest Wall Tenderness Extremities: No Clubbing, No Cyanosis, No Edema, Normal Pulses - VTE Reasons for not Prescribing Prophylaxis: Not indicated-Anticoagulated or INR therapeutic
[2017-03-27] MEDS: Tiotropium 18 MCG inhalation IH SCH (10:26)
[2017-03-27] MEDS ORDERED: *HR* Methotrexate 2.5 MG TABLET PO SCH (14:10)
== END 2017-03-27 11:18 | disposition home or self-care (01) | DRG 309 ==
LOC: ICNU 08:54 → 2NENU 03-25 16:23
PROVIDERS: ADMIT Internal Medicine Clinical Cardiac Electrophysiology; ATTEND Internal Medicine Clinical Cardiac Electrophysiology

== ENCOUNTER 2018-01-24 16:45 | Inpatient (IN) ==
[2018-01-24] MEDS ORDERED: 0.9 % Sodium Chloride 1,000 ML IVC ONE (17:12)
--- NOTE | 2018-01-24 17:22 | Emergency Department Note ---
Disposition Clinical Impression: Atrial fibrillation with RVR, Dizziness Disposition: Admitted As Inpatient Condition: Fair Referrals: Raúl English DO [Primary Care Provider] - Forms: ED Satisfaction Letter Time of Disposition: 20:05 General Adult HPI - General Chief complaint: ED Dizziness Stated complaint: "blood pressure's messed up and my pulse" Time Seen by Provider: 01/24/18 16:57 Nursing Notes Reviewed: Yes Vital Signs Reviewed: Yes - History of Present Illness HPI Narrative: 59-year-old female presents to the emergency department with concerns for dizziness, heart racing, vomiting. Patient states that she has been vomiting since last Thursday. She reports after meals. Reports that she has coughed prior to it. Patient does have history of COPD. She does deny shortness of breath. Vomit nonbloody and nonbilious. Patient reports that she goes in for heart was racing more. She does have history of atrial fibrillation and is always in atrial fibrillation. Metoprolol daily for a-fib. Was recently on amiodarone but this was discontinued due to concerns for pulmonary toxicity. Patient reports having dizziness. States this started today. reports that it is a sensation that the room is spinning, but also reports lightheadedness as well. States it is worse when she picks her head up. Denies having any dizziness right now. Patient denies any fever, chills, increasing sputum production. Patient is not on any oxygen at home. Patient was reportedly sent here from [place] urgent care because she had elevated blood pressure. Pain Scale: 0 - Related Data Home Medications Medication Instructions Recorded Confirmed Buspirone HCl [Buspar] 10 mg PO BID PRN 04/07/16 06/15/17 Calcium Carbonate [Calcium] 500 mg PO BID 04/07/16 06/15/17 Digoxin [Lanoxin] 0.125 mg PO DAILY 04/07/16 06/15/17 Furosemide [Lasix] 40 mg PO BID 04/07/16 06/15/17 Lisinopril [Zestril] 10 mg PO DAILY 04/07/16 06/15/17 Multivitamin [Multi-Day Vitamins] 1 tab PO DAILY 04/07/16 06/15/17 Pravastatin Sodium [Pravachol] 20 mg PO HS 04/07/16 06/15/17 Spironolactone [Aldactone] 25 mg PO DAILY 04/07/16 06/15/17 Tiotropium [Spiriva] 1 cap IH DAILY 04/07/16 06/15/17 Trazodone HCl 150 mg PO HS 04/07/16 06/15/17 amLODIPine [Norvasc] 5 mg PO DAILY 04/07/16 06/15/17 rOPINIRole [Requip] 2 mg PO HS 04/07/16 06/15/17 Ascorbate Calcium [Vitamin C] 500 mg PO DAILY 10/06/16 06/15/17 Methotrexate [Otrexup] 6 tab PO FR 10/06/16 06/15/17 Potassium 99 mg PO DAILY 10/06/16 06/15/17 Sertraline [Zoloft] 50 mg PO DAILY 10/06/16 06/15/17 Warfarin [Coumadin] 2.5 mg PO DAILY 10/06/16 06/15/17 Ferrous Sulfate [Iron] 325 mg PO DAILY 02/16/17 06/15/17 Folic Acid 1 mg PO DAILY 02/16/17 06/15/17 Amiodarone [Cordarone] 200 mg PO BID 06/15/17 06/15/17 Cholecalciferol (D-3) [Vitamin D] 1,000 unit PO DAILY 06/15/17 06/15/17 Hyoscyamine Sulfate [Levbid] 0.375 mg PO BID 06/15/17 06/15/17 Loperamide HCl [Imodium A-D] 2 mg PO DAILY PRN 06/15/17 06/15/17 Pramipexole [Mirapex] 0.125 mg PO HS 06/15/17 06/15/17 Previous Rx's Medication Instructions Recorded Azithromycin [Zithromax] 250 mg PO DAILY #6 tablet 08/20/17 Benzonatate [Tessalon] 100 mg PO TID PRN #15 capsule 08/20/17 Allergies Allergy/AdvReac Type Severity Reaction Status Date / Time No Known Allergies Allergy Verified 02/16/17 15:09 All systems ED: reviewed and negative except as stated. Review of Systems: As Per HPI Constitutional: Denies: fever, chills Cardiovascular: Reports: palpitations. Denies: chest pain Respiratory: Denies: dyspnea Gastrointestinal: Reports: nausea, vomiting. Denies: abdominal pain Genitourinary: Denies: urgency, dysuria, frequency Musculoskeletal: Denies: back pain Neurological: Reports: other (Dizziness). Denies: headache, weakness, numbness , paresthesias Past Medical History - Past Medical History Medical history: Reports: atrial fibrillation, COPD, coronary artery disease, hyperlipidemia, hypertension, peripheral artery disease, RA, valvular heart disease Surgical history: Reports: appendectomy, heart valve replacement, herniorrhaphy , hysterectomy, orthopedic, other, vascular surgery Psychiatric history: Reports: no psych history - Social History Smoking Status: Former smoker Smokeless Tobacco Status: No Alcohol use: Reports: none Drug use: Reports: none Physical Exam - General General appearance: alert, in no apparent distress - Head Head exam: atraumatic, normocephalic, normal inspection - Eye Eye exam: Present: PERRL, EOMI - ENT ENT exam: normal oropharynx - Neck Neck exam: Present: full ROM, trachea midline. Absent: tenderness, meningismus - Chest Chest inspection: Present: symmetric chest wall rise - Respiratory Respiratory exam: Present: normal lung sounds bilaterally. Absent: respiratory distress, accessory muscle use - Cardiovascular Cardiovascular exam: Present: tachycardia, irregular rhythm - Abdominal Exam Abdominal exam: Present: soft, Non-Tender. Absent: distention, guarding, rebound - Extremities Exam Extremities exam: Present: normal capillary refill - Back Exam Back exam: Present: full ROM - Neurological Exam Neurological exam: Present: alert, oriented X3 - Psychiatric Psychiatric exam: Present: normal affect, normal mood - Skin Skin exam: Present: warm, dry, intact Course Vital Signs Temperature 98.1 F 01/24/18 16:52 Pulse Rate 83 01/24/18 16:52 Respiratory Rate 20 01/24/18 16:52 Blood Pressure 122/86 01/24/18 16:52 O2 Sat by Pulse Oximetry 100 01/24/18 16:52 Temperature 98.1 F 01/24/18 16:52 Pulse Rate 98 01/24/18 19:56 Respiratory Rate 20 01/24/18 19:56 Blood Pressure 94/84 01/24/18 19:56 O2 Sat by Pulse Oximetry 94 01/24/18 19:56 Oxygen Delivery Oxygen Delivery Room Air Medical Decision Making - MDM Narrative Medical decision making narrative: 59-year-old female presents emergency Department after concern for elevated blood pressure at urgent care. Patient presented with a chief complaint of having nausea, vomiting, dizziness, palpitations. Patient arrived with heart rate revealing atrial fibrillation with RVR. Patient would get in to rates up to in the 150s. There were times, were patient 's heart rate would get down to 90 and 85. Patient was given a liter of fluids to start off as she has been taking Lasix and there was concern for dehydration after her nausea vomiting. Patient's heart rate still was elevated. Patient was given 5 mg of Lopressor. We then repeated the dose as well. Patient was hemodynamic medically stable not in acute distress and time while in the emergency department. History is most consistent with orthostatic hypotension. However, there was some concern that patient was having these neurologic symptoms with the nausea vomiting as well as being on Coumadin. We will obtain a CT scan of the head without contrast. This does not reveal any evidence of intracranial abnormality. Patient's INR was 3.4 which is within the therapeutic range as she has a prosthetic valve. Troponin was within normal limits. BNP was mildly elevated, but this could be most consistent with her recent attacks of atrial fibrillation. Creatinine was mildly elevated at 1.37, but she has had a creatinine this high in the past. We have addressed this with a liter of fluids. Urinalysis not revealing any evidence of urinary tract infection. Chest x-ray reveals stable cardiomegaly without any new pleural effusions or vascular congestion. Discussion was made at bedside with patient and regarding admission to hospital for further management of her atrial fibrillation with RVR. As far as the etiology of her going back into atrial flutter ablation with RVR, so most likely this related to the fact that she was recently taken off amiodarone as well as possible dehydration. Chest X-Ray 01/24/18 17:10 IMPRESSION: No acute process. Stable cardiomegaly. D/ / Jim Witt MD / Jim Witt MD Interpreting Provider: Jim Witt MD Head CT 01/24/18 17:11 IMPRESSION: No acute intracranial abnormality. D/ / Yevgeniy Boston MD / Yevgeniy Boston MD Interpreting Provider: Yevgeniy Boston MD - Lab Data Result diagrams: 01/24/18 17:44 01/24/18 17:44 Lab Results 01/24/18 01/24/18 01/24/18 Range/Units 17:44 17:44 17:44 WBC 5.1 (4.3-11.1) K/mcL RBC 3.74 L (3.82-4.97) M/mcL Hgb 12.1 (11.5-15.4) g/dL Hct 35.6 (35.3-44.9) % MCV 95.2 (83.0-100.0) fL MCH 32.4 (28.0-33.3) pg MCHC 34.0 (31.6-35.5) g/dL RDW 15.6 H (11.5-14.5) % Plt Count 149 (140-400) K/mcL MPV 9.3 L (9.4-12.4) fL Immature Gran % 0.4 (0-4) % Seg Neutrophils % 75.7 % Lymphocytes % 14.3 % Monocytes % 7.8 % Eosinophils % 1.2 % Basophils % 0.6 % Neutrophils # 3.9 (1.6-8.9) K/mcL Lymphocytes # 0.7 (0.6-4.6) K/mcL Monocytes # 0.4 (0.0-1.3) K/mcL Eosinophils # 0.1 (0.0-0.6) K/mcL Basophils # 0.0 (0.0-0.2) K/mcL PT 37.8 H (9.4-12.1) Seconds INR 3.4 Sodium 139 (136-145) mEq/L Potassium 4.1 (3.5-5.1) mEq/L Chloride 105 (98-107) mEq/L Carbon Dioxide 28 (23-29) mEq/L BUN 21 (8-23) mg/dL Creatinine 1.37 H (0.60-1.20) mg/dL Est GFR ( Amer) 46 L (> 60) Est GFR (Non-Af Amer) 38 L (> 60) BUN/Creatinine Ratio 15 (6-26) Glucose 116 H (70-105) mg/dL Calculated Osmolality 292 (280-300) Calcium 9.2 (8.6-10.3) mg/dL Troponin I < 0.03 (< 0.04) ng/mL B-Natriuretic Peptide (Less than 100) pg/mL TSH 0.885 (0.340-5.600) mcIU/mL Urine Color (Yellow) Urine Clarity (Clear) Urine pH (5.0-8.0) pH Units Ur Specific [place] (1.010-1.025) Urine Protein (Neg-Trace) mg/dL Urine Glucose (UA) (Normal) mg/dL Urine Ketones (Negative) mg/dL Urine Blood (Negative) Urine Nitrite (Negative) Urine Bilirubin (Negative) Urine Urobilinogen (Normal) mg/dL Ur Leukocyte Esterase (Negative) Ur Culture Indicated? (NO) 01/24/18 01/24/18 Range/Units 17:44 19:19 WBC (4.3-11.1) K/mcL RBC (3.82-4.97) M/mcL Hgb (11.5-15.4) g/dL Hct (35.3-44.9) % MCV (83.0-100.0) fL MCH (28.0-33.3) pg MCHC (31.6-35.5) g/dL RDW (11.5-14.5) % Plt Count (140-400) K/mcL MPV (9.4-12.4) fL Immature Gran % (0-4) % Seg Neutrophils % % Lymphocytes % % Monocytes % % Eosinophils % % Basophils % % Neutrophils # (1.6-8.9) K/mcL Lymphocytes # (0.6-4.6) K/mcL Monocytes # (0.0-1.3) K/mcL Eosinophils # (0.0-0.6) K/mcL Basophils # (0.0-0.2) K/mcL PT (9.4-12.1) Seconds INR Sodium (136-145) mEq/L Potassium (3.5-5.1) mEq/L Chloride (98-107) mEq/L Carbon Dioxide (23-29) mEq/L BUN (8-23) mg/dL Creatinine (0.60-1.20) mg/dL Est GFR ( Amer) (> 60) Est GFR (Non-Af Amer) (> 60) BUN/Creatinine Ratio (6-26) Glucose (70-105) mg/dL Calculated Osmolality (280-300) Calcium (8.6-10.3) mg/dL Troponin I (< 0.04) ng/mL B-Natriuretic Peptide 444 H (Less than 100) pg/mL TSH (0.340-5.600) mcIU/mL Urine Color Yellow (Yellow) Urine Clarity Clear (Clear) Urine pH 6.0 (5.0-8.0) pH Units Ur Specific [place] 1.010 (1.010-1.025) Urine Protein Negative (Neg-Trace) mg/dL Urine Glucose (UA) Normal (Normal) mg/dL Urine Ketones Negative (Negative) mg/dL Urine Blood Negative (Negative) Urine Nitrite Negative (Negative) Urine Bilirubin Negative (Negative) Urine Urobilinogen Normal (Normal) mg/dL Ur Leukocyte Esterase Negative (Negative) Ur Culture Indicated? NO (NO) - EKG Data EKG #1 EKG attestation: Yes I reviewed and interpreted this EKG. EKG results narrative: 70:06 Ventricular rate 111 bpm, QRS duration 105 ms, QT 328 ms, QTC 394 ms Atrial fibrillation with rapid ventricular response. Ventricular rate is 111. There is no evidence of any ischemic ST changes on this electrocardiogram. EKG is no different from her previous study performed on June 15, 2017.
[2018-01-24 18:14] LABS: Basophils % 0.6 %; Eosinophils # 0.1 K/mcL (0.0-0.6); Eosinophils % 1.2 %; Hematocrit 35.6 % (35.3-44.9); Hemoglobin 12.1 g/dL (11.5-15.4); Immature Granulocytes % 0.4 % (0-4); Lymphocytes # 0.7 K/mcL (0.6-4.6); Lymphocytes % 14.3 %; Mean Corpuscular Hemoglobin 32.4 pg (28.0-33.3); Mean Corpuscular Volume 95.2 fL (83.0-100.0); Mean Platelet Volume 9.3 fL (9.4-12.4); Monocytes # 0.4 K/mcL (0.0-1.3); Monocytes % 7.8 %; Neutrophils # 3.9 K/mcL (1.6-8.9); Platelet Count 149 K/mcL (140-400); Red Blood Count 3.74 M/mcL (3.82-4.97); Red Cell Distribution Width 15.6 % (11.5-14.5); Segmented Neutrophils % 75.7 %
[2018-01-24 18:28] LABS: INR 3.4; Prothrombin Time 37.8 Seconds (9.4-12.1)
[2018-01-24 18:40] LABS: BUN/Creatinine Ratio 15 (6-26); Blood Urea Nitrogen 21 mg/dL (8-23); Calcium 9.2 mg/dL (8.6-10.3); Carbon Dioxide 28 mEq/L (23-29); Chloride 105 mEq/L (98-107); Glucose 116 mg/dL (70-105); Osmolality,Calculated 292 (280-300); Potassium 4.1 mEq/L (3.5-5.1); Sodium 139 mEq/L (136-145); Troponin I < 0.03 ng/mL (< 0.04); eGFR For African Americans 46 (> 60); eGFR For Non-African Americans 38 (> 60)
[2018-01-24] MEDS ORDERED: *HR* LORazepam 2 MG/ML VIAL IVP ONE (18:42)
[2018-01-24] MEDS ORDERED: *HR* Metoprolol 5 MG/5 ML VIAL IVP ONE ×2 (18:43→19:19)
[2018-01-24 18:54] LABS: Thyroid Stimulating Hormone 0.885 mcIU/mL (0.340-5.600)
[2018-01-24 19:31] LABS: Bilirubin,Urine Negative (Negative); Blood,Urine Negative (Negative); Clarity,Urine Clear (Clear); Color,Urine Yellow (Yellow); Glucose,Urine (UA) Normal (Normal); Ketones,Urine Negative (Negative); Leukocyte Esterase,Urine Negative (Negative); Nitrite,Urine Negative (Negative); Protein,Urine Negative (Neg-Trace); Urobilinogen,Urine Normal (Normal)
[2018-01-24] MEDS ORDERED: rOPINIRole 1 MG TABLET PO STA (20:00)
--- NOTE | 2018-01-24 20:06 | Internal Med History&Physical ---
Date of Encounter: 01/24/18 Time of Encounter: 20:02 Internal Medicine - H&P: HPI Chief complaint: Dizziness Admitted From: Emergency Dept Plans for Post Hospital Care: Home History of present illness: Ms. Diamond is a 67 year old female with past medical history of hypertension, atrila fibrillation s/p ablation 1999, mechanical AVR 1998, COPD 2 L oxygen, depression, restless leg syndrome who comes to the ED complaining of dizziness. She is being evaluated at urgent care for this and was sent here. This has been going on for a couple days with associated nausea and vomiting and mid abdominal pain. She has chronic diarrhea. No fevers or chills. The patient was noted to be in atrial fibrillation with RVR with rates up to 140 in the ED. She was given IV Lopressor 5 mg 2. Her rate still uncontrolled. She sees Dr. Power and saw him a month ago and they to me that one of her medications dosages was decreased also they are not sure which one. Denies any headache, blurry vision, chest pain, shortness of breath, constipation, lower extremity edema, urinary symptoms, or neurological symptoms other than dizziness. CT head was unremarkable in the ED. Chest x-ray was clear. Laboratory workup was significant for mildly elevated creatinine at 1.37. INR was 3.4. Potassium was 4.1. TSH was normal. BNP was mildly elevated at 444. Past Med Surg Social Fam HX - Past Medical History Medical history: atrial fibrillation, COPD, coronary artery disease, hyperlipidemia, hypertension, peripheral artery disease, RA, valvular heart disease Additional medical history: FAILED CARDIOVERSION Psychiatric history: no psych history - Past Surgical History Surgical History: appendectomy, heart valve replacement, herniorrhaphy, hysterectomy, orthopedic, other, vascular surgery Additional surgical history: cervical neck surgery- 2 donor bones, left foot surgery-tumor removed, right arm rotator cuff repair, right knee scope, right arm brachial artery repair - Social History Smoking Status: Former smoker Smokeless Tobacco Status: No Alcohol use: none Drug use: none - Family History Father Living Status: Hx Family Cancer: Yes (colon and liver) Mother Living Status: Hx Family Cardiac Disorders: Yes Internal Medicine - H&P: Meds Buspirone HCl [Buspar] 10 mg PO BID PRN 04/07/16 [History] Calcium Carbonate [Calcium] 500 mg PO BID 04/07/16 [History] Digoxin [Lanoxin] 0.125 mg PO DAILY 04/07/16 [History] Furosemide [Lasix] 40 mg PO BID 04/07/16 [History] Lisinopril [Zestril] 10 mg PO DAILY 04/07/16 [History] Multivitamin [Multi-Day Vitamins] 1 tab PO DAILY 04/07/16 [History] Pravastatin Sodium [Pravachol] 20 mg PO HS 04/07/16 [History] Spironolactone [Aldactone] 25 mg PO DAILY 04/07/16 [History] Tiotropium [Spiriva] 1 cap IH DAILY 04/07/16 [History] Trazodone HCl 150 mg PO HS 04/07/16 [History] amLODIPine [Norvasc] 5 mg PO DAILY 04/07/16 [History] rOPINIRole [Requip] 2 mg PO HS 04/07/16 [History] Ascorbate Calcium [Vitamin C] 500 mg PO DAILY 10/06/16 [History] Methotrexate [Otrexup] 6 tab PO FR 10/06/16 [History] Potassium 99 mg PO DAILY 10/06/16 [History] Sertraline [Zoloft] 50 mg PO DAILY 10/06/16 [History] Warfarin [Coumadin] 2.5 mg PO DAILY 10/06/16 [History] Ferrous Sulfate [Iron] 325 mg PO DAILY 02/16/17 [History] Folic Acid 1 mg PO DAILY 02/16/17 [History] Amiodarone [Cordarone] 200 mg PO BID 06/15/17 [History] Cholecalciferol (D-3) [Vitamin D] 1,000 unit PO DAILY 06/15/17 [History] Hyoscyamine Sulfate [Levbid] 0.375 mg PO BID 06/15/17 [History] Loperamide HCl [Imodium A-D] 2 mg PO DAILY PRN 06/15/17 [History] Pramipexole [Mirapex] 0.125 mg PO HS 06/15/17 [History] Azithromycin [Zithromax] 250 mg PO DAILY #6 tablet 08/20/17 [Rx] Benzonatate [Tessalon] 100 mg PO TID PRN #15 capsule 08/20/17 [Rx] 3 Allergy/AdvReac Type Severity Reaction Status Date / Time No Known Allergies Allergy Verified 02/16/17 15:09 All Systems PM: A 10-system review of systems was performed and is negative for pertinent findings except as documented above in the HPI. Review of systems: All systems reviewed are negative except as mentioned above - Constitutional Vitals: Temp Pulse Resp BP Pulse Ox 98.1 F 83 20 122/86 100 01/24/18 16:52 01/24/18 16:52 01/24/18 16:52 01/24/18 16:52 01/24/18 16:52 Exam: GEN: NAD HEENT: AT, NC, No cyanosis, oral mucosa is moist, No JVD Lymphatics: No lymphadenoapthy Eyes: Extrocular muscles intact, anicteric CVS: Tachycardic and irregular, S1, S2, No m/r/g RESP: CTAB ABD: Soft, NT, ND, +BS EXT: No edema, No rashes, 2+ DP NEURO: Nonfocal, CN II-XII intact, No focal motor or sensory deficits Psych: Cooperative, Not anxious or depressed Internal Med - H&P Results - Labs CBC & Chem 7: 01/24/18 17:44 01/24/18 17:44 Labs: Short CBC 01/24/18 Range/Units 17:44 WBC 5.1 (4.3-11.1) K/mcL Hgb 12.1 (11.5-15.4) g/dL Hct 35.6 (35.3-44.9) % Plt Count 149 (140-400) K/mcL Neutrophils # 3.9 (1.6-8.9) K/mcL BMP 01/24/18 17:44 Sodium 139 Potassium 4.1 Chloride 105 Carbon Dioxide 28 BUN 21 Creatinine 1.37 H Glucose 116 H Calcium 9.2 Cardiac Enzymes 01/24/18 Range/Units 17:44 Troponin I < 0.03 (< 0.04) ng/mL Urine 01/24/18 Range/Units 19:19 Urine Color Yellow (Yellow) Urine Clarity Clear (Clear) Urine pH 6.0 (5.0-8.0) pH Units Ur Specific [place] 1.010 (1.010-1.025) Urine Protein Negative (Neg-Trace) mg/dL Urine Glucose (UA) Normal (Normal) mg/dL - Impressions ITS Impressions Chest X-Ray 01/24/18 17:10 IMPRESSION: No acute process. Stable cardiomegaly. D/ / Jim Witt MD / Jim Witt MD Interpreting Provider: Jim Witt MD Head CT 01/24/18 17:11 IMPRESSION: No acute intracranial abnormality. D/ / Yevgeniy Boston MD / Yevgeniy Boston MD Interpreting Provider: Yevgeniy Boston MD - Assessment and plan (1) Atrial fibrillation with RVR Current Visit: Yes Status: Acute Assessment and plan: Patient is in persistent A. fib however now she is RVR. This is possibly secondary to the change in her medications as the tells me that one of her medications dosages was decreased and month ago. The patient has been given 10 mg IV Lopressor in the ED with a heart rate still anywhere between 90 to 1:30. I will start patient on a Cardizem drip. Consult cardiology. Check magnesium level as that was not checked in the ED. TSH is normal. (2) Nausea & vomiting Current Visit: Yes Status: Acute Assessment and plan: Patient has been dealing with this for a couple days with associated mid abdominal pain. She vomited a couple times. Given her history of diverticulitis, I will check a CT abdomen and pelvis. Continue symptomatically with antiemetics and IV fluids. Pain control. Qualifiers: Vomiting type: unspecified Vomiting Intractability: non-intractable Qualified Code(s): R11.2 - Nausea with vomiting, unspecified (3) Dizziness Current Visit: Yes Status: Acute Assessment and plan: Multifactorial with A. fib and the nausea and vomiting. We will monitor and place patient on IV fluids. (4) Acute renal failure Current Visit: Yes Status: Acute Assessment and plan: Likely secondary to GI losses. We will place on IV fluids. Avoid nephrotoxins. Check labs in the morning. Qualifiers: Acute renal failure type: unspecified Qualified Code(s): N17.9 - Acute kidney failure, unspecified (5) COPD (chronic obstructive pulmonary disease) Current Visit: No Status: Chronic Assessment and plan: Continue home inhalers. Patient is not in exacerbation. Qualifiers: COPD type: unspecified COPD Qualified Code(s): J44.9 - Chronic obstructive pulmonary disease, unspecified (6) HTN (hypertension) Current Visit: No Status: Chronic Assessment and plan: Hold antihypertensives for now while Cardizem drip. Qualifiers: Hypertension type: essential hypertension Qualified Code(s): I10 - Essential (primary) hypertension (7) History of mechanical aortic valve replacement Current Visit: No Status: Chronic Assessment and plan: Continue Coumadin. INR is therapeutic. (8) DVT prophylaxis Current Visit: No Status: Acute Assessment and plan: Patient is on Coumadin. - Time Spent With Patient Total time spent is greater than 50% in coordination of care (as documented) at patient's floor/unit and/or counseling patient:
[2018-01-24] MEDS ORDERED: Acetaminophen 325 MG TABLET PO PRN (20:20)
[2018-01-24] MEDS ORDERED: Naloxone 0.4 MG/ML INJ IVP PRN (20:20)
[2018-01-24] MEDS ORDERED: Ondansetron 4 MG/2 ML VIAL IVP PRN ×2 (20:20→20:31)
[2018-01-24 20:26] LABS: Magnesium 2.3 mg/dL (1.6-2.6)
--- NOTE | 2018-01-24 21:01 | Emergency Department Note ---
Disposition Clinical Impression: Atrial fibrillation with RVR, Dizziness Disposition: Admitted As Inpatient Condition: Fair General Adult HPI - General Chief complaint: ED Dizziness Stated complaint: "blood pressure's messed up and my pulse" Time Seen by Provider: 01/24/18 16:57 - History of Present Illness Pain Scale: 10 - Related Data Home Medications Medication Instructions Recorded Confirmed Buspirone HCl [Buspar] 10 mg PO BID PRN 04/07/16 06/15/17 Calcium Carbonate [Calcium] 500 mg PO BID 04/07/16 06/15/17 Digoxin [Lanoxin] 0.125 mg PO DAILY 04/07/16 06/15/17 Furosemide [Lasix] 40 mg PO BID 04/07/16 06/15/17 Lisinopril [Zestril] 10 mg PO DAILY 04/07/16 06/15/17 Multivitamin [Multi-Day Vitamins] 1 tab PO DAILY 04/07/16 06/15/17 Pravastatin Sodium [Pravachol] 20 mg PO HS 04/07/16 06/15/17 Spironolactone [Aldactone] 25 mg PO DAILY 04/07/16 06/15/17 Tiotropium [Spiriva] 1 cap IH DAILY 04/07/16 06/15/17 Trazodone HCl 150 mg PO HS 04/07/16 06/15/17 amLODIPine [Norvasc] 5 mg PO DAILY 04/07/16 06/15/17 rOPINIRole [Requip] 2 mg PO HS 04/07/16 06/15/17 Ascorbate Calcium [Vitamin C] 500 mg PO DAILY 10/06/16 06/15/17 Methotrexate [Otrexup] 6 tab PO FR 10/06/16 06/15/17 Potassium 99 mg PO DAILY 10/06/16 06/15/17 Sertraline [Zoloft] 50 mg PO DAILY 10/06/16 06/15/17 Warfarin [Coumadin] 2.5 mg PO DAILY 10/06/16 06/15/17 Ferrous Sulfate [Iron] 325 mg PO DAILY 02/16/17 06/15/17 Folic Acid 1 mg PO DAILY 02/16/17 06/15/17 Amiodarone [Cordarone] 200 mg PO BID 06/15/17 06/15/17 Cholecalciferol (D-3) [Vitamin D] 1,000 unit PO DAILY 06/15/17 06/15/17 Hyoscyamine Sulfate [Levbid] 0.375 mg PO BID 06/15/17 06/15/17 Loperamide HCl [Imodium A-D] 2 mg PO DAILY PRN 06/15/17 06/15/17 Pramipexole [Mirapex] 0.125 mg PO HS 06/15/17 06/15/17 Previous Rx's Medication Instructions Recorded Azithromycin [Zithromax] 250 mg PO DAILY #6 tablet 08/20/17 Benzonatate [Tessalon] 100 mg PO TID PRN #15 capsule 08/20/17 Allergies Allergy/AdvReac Type Severity Reaction Status Date / Time No Known Allergies Allergy Verified 02/16/17 15:09 Constitutional: Denies: fever, chills Cardiovascular: Reports: palpitations. Denies: chest pain Respiratory: Denies: dyspnea Gastrointestinal: Reports: nausea, vomiting. Denies: abdominal pain Genitourinary: Denies: urgency, dysuria, frequency Musculoskeletal: Denies: back pain Neurological: Reports: other (Dizziness). Denies: headache, weakness, numbness , paresthesias Past Medical History - Past Medical History Medical history: Reports: atrial fibrillation, COPD, coronary artery disease, hyperlipidemia, hypertension, peripheral artery disease, RA, valvular heart disease Surgical history: Reports: appendectomy, heart valve replacement, herniorrhaphy , hysterectomy, orthopedic, other, vascular surgery Psychiatric history: Reports: no psych history - Social History Smoking Status: Former smoker Smokeless Tobacco Status: No Alcohol use: Reports: none Drug use: Reports: none Physical Exam - General General appearance: alert, in no apparent distress Course Vital Signs Temperature 98.1 F 01/24/18 16:52 Pulse Rate 83 01/24/18 16:52 Respiratory Rate 20 01/24/18 16:52 Blood Pressure 122/86 01/24/18 16:52 O2 Sat by Pulse Oximetry 100 01/24/18 16:52 Temperature 98.1 F 01/24/18 16:52 Pulse Rate 114 01/24/18 20:22 Respiratory Rate 20 01/24/18 20:22 Blood Pressure 119/60 01/24/18 20:22 O2 Sat by Pulse Oximetry 95 01/24/18 20:22 Oxygen Delivery Oxygen Delivery Room Air Medical Decision Making - Lab Data Result diagrams: 01/24/18 17:44 01/24/18 17:44 Lab Results 01/24/18 01/24/18 01/24/18 Range/Units 17:44 17:44 17:44 WBC 5.1 (4.3-11.1) K/mcL RBC 3.74 L (3.82-4.97) M/mcL Hgb 12.1 (11.5-15.4) g/dL Hct 35.6 (35.3-44.9) % MCV 95.2 (83.0-100.0) fL MCH 32.4 (28.0-33.3) pg MCHC 34.0 (31.6-35.5) g/dL RDW 15.6 H (11.5-14.5) % Plt Count 149 (140-400) K/mcL MPV 9.3 L (9.4-12.4) fL Immature Gran % 0.4 (0-4) % Seg Neutrophils % 75.7 % Lymphocytes % 14.3 % Monocytes % 7.8 % Eosinophils % 1.2 % Basophils % 0.6 % Neutrophils # 3.9 (1.6-8.9) K/mcL Lymphocytes # 0.7 (0.6-4.6) K/mcL Monocytes # 0.4 (0.0-1.3) K/mcL Eosinophils # 0.1 (0.0-0.6) K/mcL Basophils # 0.0 (0.0-0.2) K/mcL PT 37.8 H (9.4-12.1) Seconds INR 3.4 Sodium 139 (136-145) mEq/L Potassium 4.1 (3.5-5.1) mEq/L Chloride 105 (98-107) mEq/L Carbon Dioxide 28 (23-29) mEq/L BUN 21 (8-23) mg/dL Creatinine 1.37 H (0.60-1.20) mg/dL Est GFR ( Amer) 46 L (> 60) Est GFR (Non-Af Amer) 38 L (> 60) BUN/Creatinine Ratio 15 (6-26) Glucose 116 H (70-105) mg/dL Calculated Osmolality 292 (280-300) Calcium 9.2 (8.6-10.3) mg/dL Magnesium 2.3 (1.6-2.6) mg/dL Troponin I < 0.03 (< 0.04) ng/mL B-Natriuretic Peptide (Less than 100) pg/mL TSH 0.885 (0.340-5.600) mcIU/mL Urine Color (Yellow) Urine Clarity (Clear) Urine pH (5.0-8.0) pH Units Ur Specific [place] (1.010-1.025) Urine Protein (Neg-Trace) mg/dL Urine Glucose (UA) (Normal) mg/dL Urine Ketones (Negative) mg/dL Urine Blood (Negative) Urine Nitrite (Negative) Urine Bilirubin (Negative) Urine Urobilinogen (Normal) mg/dL Ur Leukocyte Esterase (Negative) Ur Culture Indicated? (NO) 01/24/18 01/24/18 Range/Units 17:44 19:19 WBC (4.3-11.1) K/mcL RBC (3.82-4.97) M/mcL Hgb (11.5-15.4) g/dL Hct (35.3-44.9) % MCV (83.0-100.0) fL MCH (28.0-33.3) pg MCHC (31.6-35.5) g/dL RDW (11.5-14.5) % Plt Count (140-400) K/mcL MPV (9.4-12.4) fL Immature Gran % (0-4) % Seg Neutrophils % % Lymphocytes % % Monocytes % % Eosinophils % % Basophils % % Neutrophils # (1.6-8.9) K/mcL Lymphocytes # (0.6-4.6) K/mcL Monocytes # (0.0-1.3) K/mcL Eosinophils # (0.0-0.6) K/mcL Basophils # (0.0-0.2) K/mcL PT (9.4-12.1) Seconds INR Sodium (136-145) mEq/L Potassium (3.5-5.1) mEq/L Chloride (98-107) mEq/L Carbon Dioxide (23-29) mEq/L BUN (8-23) mg/dL Creatinine (0.60-1.20) mg/dL Est GFR ( Amer) (> 60) Est GFR (Non-Af Amer) (> 60) BUN/Creatinine Ratio (6-26) Glucose (70-105) mg/dL Calculated Osmolality (280-300) Calcium (8.6-10.3) mg/dL Magnesium (1.6-2.6) mg/dL Troponin I (< 0.04) ng/mL B-Natriuretic Peptide 444 H (Less than 100) pg/mL TSH (0.340-5.600) mcIU/mL Urine Color Yellow (Yellow) Urine Clarity Clear (Clear) Urine pH 6.0 (5.0-8.0) pH Units Ur Specific [place] 1.010 (1.010-1.025) Urine Protein Negative (Neg-Trace) mg/dL Urine Glucose (UA) Normal (Normal) mg/dL Urine Ketones Negative (Negative) mg/dL Urine Blood Negative (Negative) Urine Nitrite Negative (Negative) Urine Bilirubin Negative (Negative) Urine Urobilinogen Normal (Normal) mg/dL Ur Leukocyte Esterase Negative (Negative) Ur Culture Indicated? NO (NO) Attestation Statement - Attestation Attestation: I examined this patient and my medical decision-making was reviewed with the Resident Physician, Dr. Govea. I agree with the documented findings, disposition and treatment plan as described except to the extent set forth below. Patient is a 67-year-old white female who has a history of paroxysmal A. fib, mechanical valve replacement for aortic valve, on Coumadin as well as COPD who presents to the emergency Department with complaints of intermittent episodes of lightheadedness associated with some occasional palpitations or fluttering in her chest since Thursday. Patient insists that the episodes of lightheadedness in related to positional changes or turning when she standing and then quickly resolved. At bedside currently patient is denying any lightheadedness or dizziness no room spinning sensation no worsening with positional change or head turning. Patient denies any slurred speech no facial droop, no focal weakness or numbness. No history of falls or trauma. Patient denies any near syncopal or syncopal episodes at home. Patient states she has fallen a few times while outside gardening when she is stood up from a squatting position but no loss of consciousness. Patient denies any chest pain pressure or heaviness at this time does state that she feels occasional fluttering in her chest but denies any shortness of breath abdominal pain. Patient states she has had a couple intermittent episodes of posttussive emesis at home but has not had any prolonged cough or productive cough no fevers or chills. 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 fib and has noticed an increase in her fluttering since that time. I agree with patient's physical exam findings as documented. Patient was tachycardic but with a stable blood pressure and in no acute distress. EKG shows atrial fibrillation with RVR no acute ischemia is appreciated. Patient had taken aspirin today prior to arrival we went ahead and administered IV fluids initially to see if this would improve her heart rate. No significant change as her heart rate varied from the 1 teens in the 140s. Patient is asymptomatic with these changes. Laboratory evaluation was obtained portal chest x-ray was ordered and patient was given a dose of Lopressor. The Lopressor did help with rate at a rate control and patient's labs are overall unremarkable. Troponin negative. Patient will be admitted for further evaluation of A. fib with RVR and case was discussed with hospitalist who accepted patient for further evaluation and management.
[2018-01-24] MEDS ORDERED: *HR* Amiodarone 200 MG TABLET PO SCH (22:45)
[2018-01-24] MEDS: traZODone 50 MG TABLET PO SCH (23:25)
[2018-01-24] MEDS: rOPINIRole 1 MG TABLET PO SCH (23:25)
[2018-01-24] MEDS: 0.9 % Sodium Chloride 1,000 ML IVC SCH (23:25)
[2018-01-25 04:28] LABS: Basophils % 0.5 %; Eosinophils # 0.1 K/mcL (0.0-0.6); Eosinophils % 1.6 %; Hemoglobin 11.1 g/dL (11.5-15.4); Lymphocytes % 27.4 %; Mean Corpuscular HGB Conc 33.6 g/dL (31.6-35.5); Mean Corpuscular Hemoglobin 32.5 pg (28.0-33.3); Mean Corpuscular Volume 96.5 fL (83.0-100.0); Mean Platelet Volume 9.6 fL (9.4-12.4); Monocytes # 0.3 K/mcL (0.0-1.3); Monocytes % 7.6 %; Neutrophils # 2.3 K/mcL (1.6-8.9); Platelet Count 124 K/mcL (140-400); Red Blood Count 3.42 M/mcL (3.82-4.97); Red Cell Distribution Width 15.7 % (11.5-14.5); Segmented Neutrophils % 62.9 %
[2018-01-25 04:47] LABS: BUN/Creatinine Ratio 20 (6-26); Blood Urea Nitrogen 20 mg/dL (8-23); Calcium 8.7 mg/dL (8.6-10.3); Carbon Dioxide 27 mEq/L (23-29); Chloride 109 mEq/L (98-107); Glucose 84 mg/dL (70-105); Magnesium 2.2 mg/dL (1.6-2.6); Osmolality,Calculated 294 (280-300); Sodium 141 mEq/L (136-145); eGFR For African Americans > 60 (> 60); eGFR For Non-African Americans 55 (> 60)
[2018-01-25 05:56] LABS: INR 3.3; Prothrombin Time 36.9 Seconds (9.4-12.1)
--- NOTE | 2018-01-25 08:11 | Internal Med Progress Note ---
<Tiff Diaz - Last Filed: 01/25/18 09:54> Date of Encounter: 01/25/18 Time of Encounter: 09:14 - Assessment and plan (1) Atrial fibrillation Current Visit: Yes Status: Chronic Assessment and plan: Patient remains in afib. Rate controlled overnight but now in the low 100s HR. Per cardiology recommendations Give one time dose IV Lopressor 5mg, then start Toprol XL 25mg BID. Give one time dose IV Lopressor 5mg, then start Toprol XL 25mg BID. No evidence of ischemia. TSH WNL. Most likely associated with medication changes. Qualifiers: Atrial fibrillation type: persistent Qualified Code(s): I48.1 - Persistent atrial fibrillation (2) History of mechanical aortic valve replacement Current Visit: Yes Status: Chronic Assessment and plan: INR therapeutic. Continue coumadin per pharmacy dosing. (3) COPD (chronic obstructive pulmonary disease) Current Visit: Yes Status: Chronic Assessment and plan: Patient at baseline respiratory status. Continue home medications. Qualifiers: COPD type: unspecified COPD Qualified Code(s): J44.9 - Chronic obstructive pulmonary disease, unspecified (4) HTN (hypertension) Current Visit: Yes Status: Chronic Assessment and plan: Continue home medications. Cardiology has been consulted. Last cardiology appointment as an outpatient Norvasc was stopped. Patient currently only taking lopressor. Qualifiers: Hypertension type: essential hypertension Qualified Code(s): I10 - Essential (primary) hypertension (5) DVT prophylaxis Current Visit: Yes Status: Acute Assessment and plan: Patient has therapeutic INR. (6) Dizziness Current Visit: Yes Status: Acute Assessment and plan: Patient no longer dizzy at this time. Most likely multifactorial with afib and dehydration. (7) Nausea & vomiting Current Visit: Yes Status: Acute Assessment and plan: Patient has chronic nausea. No vomiting at this time. Follow outpatient with GI. No new symptoms. Patient has been NPO. Will add cardiac diet and reassess. Qualifiers: Vomiting type: unspecified Vomiting Intractability: non-intractable Qualified Code(s): R11.2 - Nausea with vomiting, unspecified (8) Acute renal failure Current Visit: Yes Status: Acute Assessment and plan: Resolved with IV fluid rehydration. Qualifiers: Acute renal failure type: unspecified Qualified Code(s): N17.9 - Acute kidney failure, unspecified (9) Rheumatoid arthritis Current Visit: Yes Status: Acute Assessment and plan: Currently on methotrexate. Continue home medications. Qualifiers: Rheumatoid arthritis location: unspecified site Rheumatoid factor presence : unspecified presence Qualified Code(s): M06.9 - Rheumatoid arthritis, unspecified - Time Spent With Patient Total time spent is greater than 50% in coordination of care (as documented) at patient's floor/unit and/or counseling patient: - Subjective Interval history: 59-year-old female admitted for atrial fibrillation with RVR. Patient states she is feeling significantly better at this time. Denies nausea, vomiting or dizziness. Patient has known atrial fibrillation and follows with Dr. Power as an outpatient. Patient denies any chest pain, pressure or palpitations at this time. She states "I am ready to go home". - Constitutional Vitals: Temp Pulse Resp BP Pulse Ox 98.2 F 100 16 115/79 95 01/25/18 07:00 01/25/18 07:00 01/25/18 07:00 01/25/18 07:00 01/25/18 07:00 General appearance: Present: A&O X 3, pleasant, no acute distress - Head Head exam: Present: atraumatic, normal inspection, normocephalic - Eye Eye exam: Present: EOMI, normal appearance, PERRL - ENT ENT exam: Present: mucous membranes moist - Respiratory Respiratory exam: Present: CTAB. Absent: accessory muscle use, chest wall tenderness - Cardiovascular Cardiovascular exam: Present: irregular rhythm, tachycardia - GI/Abdominal GI/Abdominal exam: Present: normal bowel sounds, soft, tenderness (Mild tenderness to deep palpation in the epigastric region). Absent: firm, guarding - Extremities Exam Extremities exam: Present: normal inspection. Absent: pedal edema, tenderness - Neurological Exam Neurological exam: Present: alert, oriented X3, no focal deficits - Psychiatric Psychiatric exam: Present: normal affect, normal mood Internal Medicine: Result - Labs CBC & Chem 7: 01/25/18 04:05 01/25/18 04:05 Labs: Short CBC 01/25/18 Range/Units 04:05 WBC 3.7 L (4.3-11.1) K/mcL Hgb 11.1 L (11.5-15.4) g/dL Hct 33.0 L (35.3-44.9) % Plt Count 124 L (140-400) K/mcL Neutrophils # 2.3 (1.6-8.9) K/mcL BMP 01/25/18 04:05 Sodium 141 Potassium 4.0 Chloride 109 H Carbon Dioxide 27 BUN 20 Creatinine 1.01 Glucose 84 Calcium 8.7 - ABG Interpretation ABG results: PT/INR, D-dimer PT 36.9 Seconds (9.4-12.1) H 01/25/18 05:07 Consult Discharge Plan - Plan Referrals: Raúl English DO [Primary Care Provider] - <William Bassett - Last Filed: 01/25/18 17:24> Date of Encounter: 01/25/18 - Assessment and plan (1) Atrial fibrillation Current Visit: Yes Status: Chronic Qualifiers: Atrial fibrillation type: persistent Qualified Code(s): I48.1 - Persistent atrial fibrillation (2) History of mechanical aortic valve replacement Current Visit: Yes Status: Chronic (3) COPD (chronic obstructive pulmonary disease) Current Visit: Yes Status: Chronic Qualifiers: COPD type: unspecified COPD Qualified Code(s): J44.9 - Chronic obstructive pulmonary disease, unspecified (4) HTN (hypertension) Current Visit: Yes Status: Chronic Qualifiers: Hypertension type: essential hypertension Qualified Code(s): I10 - Essential (primary) hypertension (5) DVT prophylaxis Current Visit: Yes Status: Acute (6) Dizziness Current Visit: Yes Status: Acute (7) Nausea & vomiting Current Visit: Yes Status: Chronic Qualifiers: Vomiting type: unspecified Vomiting Intractability: non-intractable Qualified Code(s): R11.2 - Nausea with vomiting, unspecified (8) Acute renal failure Current Visit: Yes Status: Acute Qualifiers: Acute renal failure type: unspecified Qualified Code(s): N17.9 - Acute kidney failure, unspecified (9) Chronic diarrhea Current Visit: No Status: Chronic - Time Spent With Patient Total time spent is greater than 50% in coordination of care (as documented) at patient's floor/unit and/or counseling patient: - Constitutional Vitals: Temp Pulse Resp BP Pulse Ox 97.9 F 73 16 101/78 97 01/25/18 15:35 01/25/18 15:35 01/25/18 15:35 01/25/18 15:35 01/25/18 15:35 Internal Medicine: Result - Labs CBC & Chem 7: 01/25/18 04:05 01/25/18 04:05 Labs: Short CBC 01/25/18 Range/Units 04:05 WBC 3.7 L (4.3-11.1) K/mcL Hgb 11.1 L (11.5-15.4) g/dL Hct 33.0 L (35.3-44.9) % Plt Count 124 L (140-400) K/mcL Neutrophils # 2.3 (1.6-8.9) K/mcL BMP 01/25/18 04:05 Sodium 141 Potassium 4.0 Chloride 109 H Carbon Dioxide 27 BUN 20 Creatinine 1.01 Glucose 84 Calcium 8.7 - ABG Interpretation ABG results: PT/INR, D-dimer PT 36.9 Seconds (9.4-12.1) H 01/25/18 05:07 - Attending Attestation I examined this patient and my medical decision-making was reviewed with the Resident Physician on 01/25/18. I agree with the documented findings, disposition and treatment plan as described except to the extent set forth below. Ms Diamond is currently admitted for rapid atrial fibrillation. She remains moderate to high risk due to potential for worsening cardiac status. Ms Diamond feels OK. No fever or chills. No CP or SOB. Heart rate doing better with med adjustments. Appreciate cardiology input. Exam alert Comfortable Mucus membranes dry Heart irreg and not tachy No wheeze abd soft I/P 1. Rapid a fib Further diagnoses and plan as above.
[2018-01-25] MEDS: Tiotropium 18 MCG inhalation IH SCH (08:15)
--- NOTE | 2018-01-25 09:18 | Cardiology Consult Note ---
Date of Encounter: 01/25/18 Time of Encounter: 09:16 Assessment and Plan (1) Atrial fibrillation Current Visit: Yes Status: Chronic Known persistent A-Fib, hx of ablation in 1999 and multiple DCCV attempts since that time. Previously on Amiodarone, since stopped. Home AV darwin blockers include Lopressor 12.5mg BID. HR reportedly 140s on presentation, now 90s-110s. Was started on cardizem gtt, since stopped. Give one time dose IV Lopressor 5mg, then start Toprol XL 25mg BID. TTE 12/2016 EF preserved. There was concern for prosthetic . MAICOL 01/2017 no evidence. Anticoagulated on Coumadin, INR 3.3. Recommend rate control and anticoagulation strategy. Continue to follow. Qualifiers: Atrial fibrillation type: persistent Qualified Code(s): I48.1 - Persistent atrial fibrillation (2) History of mechanical aortic valve replacement Current Visit: Yes Status: Chronic Mechanical AVR 1999. TTE 12/2016 There was concern for prosthetic . MAICOL 01/2017 no evidence. Continue Coumadin. Discussion w patient/family: The assessment and plan as outlined above was discussed with the patient and/or family members who expressed understanding and agreement. All questions were answered. Thank you for involving us in the care of your patient. Please call with any questions. I will discuss all the above with Dr. Luna and make changes as necessary. History of Present Illness Consult date: 01/25/18 Requesting physician: Tiff Diaz Consult reason: A-Fib RVR Chief complaint: dizziness History of present illness: Ms. Diamond is a 67 year old female with PMH of HTN, HLD, A-Fib s/p ablation 1999 , mechanical AVR 1998, COPD 2 L oxygen, depression, restless leg syndrome who presented to ED complaining of dizziness. She states it started a couple of days ago and she noticed she kept falling when she would try to bend over, which concerned her. HR found to be 140s on presentation. HR 90s-110s at bedside. Pt reports feeling better today. She denies chest pain, dyspnea or LE edema. Reports frequent palpitations. Of note, she follows with Dr. Benedict Power who recommends rate control and anticoagulation strategy. Amiodarone previously stopped. Prior CV testing: Echo 01/09/17: LVEF 65%. Normal left ventricular size and systolic function. Indeterminate left venticular diastoic function. Normal right ventricular size and function. Mechanical aortic prosthesis is suboptimally visualized. 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 Consider MAICOL for better visualization. Mild mitral regurgitation. Mild-moderate tricuspid regurgitation. Mild pulmonary hypertension. MAICOL 02/18/17: LVEF 60%. Normal LV size and function. The right ventricle was normal in size and systolic function. Severely dilated left atrium. LA appendage is normal in appearance. No thrombus. PFO noted with evidence of a right to left shunt with agitated saline. Mild mitral regurgitation. Mechanical aortic valve appears well seated in the LVOT. Leaflet mobility not well visualized due to acoustic shadowing. No aortic regurgitation. No evidence of significant prosthetic stenosis noted, but Doppler evaluation was not well obtained. Consider TTE or fluoroscopy to better evaluate mechanical AV leaflet mobility. Past Med Surg Social Fam HX - Past Medical History Medical history: atrial fibrillation, COPD, coronary artery disease, hyperlipidemia, hypertension, peripheral artery disease, RA, valvular heart disease Additional medical history: FAILED CARDIOVERSION Psychiatric history: no psych history - Past Surgical History Surgical History: appendectomy, heart valve replacement, herniorrhaphy, hysterectomy, orthopedic, other, vascular surgery Additional surgical history: cervical neck surgery- 2 donor bones, left foot surgery-tumor removed, right arm rotator cuff repair, right knee scope, right arm brachial artery repair - Social History Smoking Status: Former smoker Smokeless Tobacco Status: No Alcohol use: none Drug use: none - Family History Father Living Status: Hx Family Cancer: Yes (colon and liver) Mother Living Status: Hx Family Cardiac Disorders: Yes Medications and Allergies Buspirone HCl [Buspar] 10 mg PO BID PRN 04/07/16 [History] Calcium Carbonate [Calcium] 500 mg PO BID 04/07/16 [History] Digoxin [Lanoxin] 0.125 mg PO DAILY 04/07/16 [History] Furosemide [Lasix] 40 mg PO DAILY 04/07/16 [History] Pravastatin Sodium [Pravachol] 20 mg PO HS 04/07/16 [History] Spironolactone [Aldactone] 25 mg PO DAILY 04/07/16 [History] Tiotropium [Spiriva] 1 cap IH DAILY 04/07/16 [History] Trazodone HCl 150 mg PO HS 04/07/16 [History] amLODIPine [Norvasc] 5 mg PO DAILY 04/07/16 [History] rOPINIRole [Requip] 2 mg PO HS 04/07/16 [History] Ascorbate Calcium [Vitamin C] 500 mg PO DAILY 10/06/16 [History] Methotrexate [Otrexup] 6 tab PO FR 10/06/16 [History] Potassium 99 mg PO DAILY 10/06/16 [History] Sertraline [Zoloft] 50 mg PO DAILY 10/06/16 [History] Warfarin [Coumadin] 5 mg PO DAILY 10/06/16 [History] Ferrous Sulfate [Iron] 325 mg PO DAILY 02/16/17 [History] Folic Acid 1 mg PO DAILY 02/16/17 [History] Amiodarone [Cordarone] 200 mg PO BID 06/15/17 [History] Cholecalciferol (D-3) [Vitamin D] 1,000 unit PO DAILY 06/15/17 [History] Hyoscyamine Sulfate [Levbid] 0.375 mg PO BID 06/15/17 [History] Loperamide HCl [Imodium A-D] 2 mg PO DAILY PRN 06/15/17 [History] Pramipexole [Mirapex] 0.125 mg PO HS 06/15/17 [History] Benzonatate [Tessalon] 100 mg PO TID PRN #15 capsule 08/20/17 [Rx] 3 Allergy/AdvReac Type Severity Reaction Status Date / Time No Known Allergies Allergy Verified 02/16/17 15:09 All Systems Review: The remainder of the systems were reviewed and are negative - Cardiovascular Cardiovascular: as per HPI, lightheadedness, palpitations - Neurological Neurological: dizziness Physical Examination Vital Signs, Last 4 Hours Temp Pulse Resp BP Pulse Ox 01/25/18 07:00 98.2 F 100 16 115/79 95 Vital Signs Temp Pulse Resp BP Pulse Ox 01/25/18 07:00 98.2 F 100 16 115/79 95 01/25/18 05:00 97.8 F 71 17 115/81 99 01/25/18 03:34 13 100 01/25/18 00:00 97.8 F 78 16 98/70 97 01/24/18 23:45 23 98 01/24/18 21:48 97.9 F 89 16 100/69 91 06/03/18 21:33 22 101/46 01/24/18 20:22 114 20 119/60 95 01/24/18 20:20 92 20 107/46 95 01/24/18 19:56 98 20 94/84 94 01/24/18 18:56 103 20 118/92 94 01/24/18 17:56 98.1 F 114 20 119/60 95 01/24/18 16:52 98.1 F 83 20 122/86 100 Intake and Output 01/24/18 01/25/18 01/25/18 23:59 07:59 15:59 Intake Total 0 / 0 0 / 0 Output Total 300 / 300 300 / 300 Balance -300 / -300 -300 / -300 Intake: Oral 0 / 0 0 / 0 Output: Urine 300 / 300 300 / 300 Other: Weight 72.1 kg 72.1 kg Patient Weight 01/25/18 23:59 Weight 72.1 kg General: Conversant HEENT: Atraumatic, Normocephaly, Mucus Membranes Moist Neck: No JVD, Normal carotid pulses Cardiac: Other (irregularly irregular) Lungs: Normal Breath Sounds, No Wheeze, Rales, Rhonchi Neuro: Alert and responsive, No focal deficits noted Abdomen: Soft, Non-Tender Skin: No rashes noted on visualized skin Musculoskeletal: No Chest Wall Tenderness Extremities: No Clubbing, No Cyanosis, No Edema, Normal Pulses Results 01/25/18 04:05 01/25/18 04:05 Lab Results 01/25/18 01/25/18 01/25/18 04:05 04:05 05:07 WBC 3.7 L Hgb 11.1 L Hct 33.0 L Plt Count 124 L INR 3.3 Sodium 141 Potassium 4.0 Chloride 109 H Carbon Dioxide 27 BUN 20 Creatinine 1.01 Glucose 84 Calcium 8.7 Magnesium 2.2 Short CBC 01/25/18 01/24/18 Range/Units 04:05 17:44 WBC 3.7 L 5.1 (4.3-11.1) K/mcL Hgb 11.1 L 12.1 (11.5-15.4) g/dL Hct 33.0 L 35.6 (35.3-44.9) % Plt Count 124 L 149 (140-400) K/mcL Neutrophils # 2.3 3.9 (1.6-8.9) K/mcL BMP 01/25/18 01/24/18 Range/Units 04:05 17:44 Sodium 141 139 (136-145) mEq/L Potassium 4.0 4.1 (3.5-5.1) mEq/L Chloride 109 H 105 (98-107) mEq/L Carbon Dioxide 27 28 (23-29) mEq/L BUN 20 21 (8-23) mg/dL Creatinine 1.01 1.37 H (0.60-1.20) mg/dL Glucose 84 116 H (70-105) mg/dL Calcium 8.7 9.2 (8.6-10.3) mg/dL Cardiac Enzymes 01/24/18 Range/Units 17:44 Troponin I < 0.03 (< 0.04) ng/mL Urine 01/24/18 Range/Units 19:19 Urine Color Yellow (Yellow) Urine Clarity Clear (Clear) Urine pH 6.0 (5.0-8.0) pH Units Ur Specific [place] 1.010 (1.010-1.025) Urine Protein Negative (Neg-Trace) mg/dL Urine Glucose (UA) Normal (Normal) mg/dL Impressions Chest X-Ray 01/24/18 17:10 IMPRESSION: No acute process. Stable cardiomegaly. D/ / Jim Witt MD / Jim Witt MD Interpreting Provider: Jim Witt MD Head CT 01/24/18 17:11 IMPRESSION: No acute intracranial abnormality. D/ / Yevgeniy Boston MD / Yevgeniy Boston MD Interpreting Provider: Yevgeniy Boston MD Abdomen/Pelvis CT 01/24/18 20:18 IMPRESSION: No acute abnormality in the abdomen/pelvis. D/ / Tito Johns MD / Tito Johns MD Interpreting Provider: Tito Johns MD Active Medications Acetaminophen (Tylenol) 650 mg PO Q6HR PRN PRN Reason: Mild Pain/Fever Stop: 07/26/18 20:21 Hydrocodone Bitart/Acetaminophen ([place] 5-325 Mg) 1 tab PO Q6HR PRN PRN Reason: Moderate Pain Stop: 07/26/18 20:21 Ascorbic Acid (Vitamin C) 500 mg PO DAILY [facility] Stop: 07/27/18 09:01 Buspirone HCl (Buspar) 10 mg PO BID PRN PRN Reason: Anxiety Folic Acid (Folic Acid) 1 mg PO DAILY [facility] Stop: 07/27/18 09:01 Hyoscyamine (Levsin Sl) 0.375 mg PO BID [facility] Stop: 07/27/18 09:01 Sodium Chloride (0.9 % Sodium Chloride) 1,000 mls @ 100 mls/hr IVC .Q10H [facility]ONARD Stop: 07/26/18 20:31 Last Admin: 01/24/18 23:25 Dose: 100 mls/hr Diltiazem HCl 125 mg/ Sodium (Chloride) 125 mls @ 2.5 mls/hr IVC .Q24H LEONARD; 2.5 MG/HR PRN Reason: Protocol Stop: 07/26/18 20:31 Loperamide HCl (Imodium) 2 mg PO DAILY PRN PRN Reason: Diarrhea Stop: 07/26/18 22:44 Multivitamins/Calcium (Thera M Plus) 1 tab PO DAILY [facility] Stop: 07/27/18 09:01 Naloxone HCl (Narcan) 0.4 mg IVP Q2MIN PRN PRN Reason: SEE COMMENTS Stop: 07/26/18 20:21 Ondansetron HCl (Zofran) 4 mg IVP Q6HR PRN; Protocol PRN Reason: Nausea And Vomiting Stop: 07/26/18 20:21 Ondansetron HCl (Zofran) 4 mg IVP Q6HR PRN; Protocol PRN Reason: Nausea And Vomiting Stop: 07/26/18 20:32 Pramipexole Dihydrochloride (Mirapex) 0.125 mg PO HS [facility] Stop: 07/26/18 22:46 Last Admin: 01/24/18 23:25 Dose: 0.125 mg Ropinirole HCl (Requip) 2 mg PO HS [facility] Stop: 07/26/18 22:46 Last Admin: 01/24/18 23:25 Dose: Not Given Sertraline HCl (Zoloft) 50 mg PO DAILY [facility] Stop: 07/27/18 09:01 Simvastatin (Zocor) 10 mg PO HS [facility] Stop: 07/27/18 21:01 Tiotropium [place] (Spiriva) 18 mcg IH DAILY [facility] Stop: 07/27/18 09:01 Last Admin: 01/25/18 08:15 Dose: 18 mcg Trazodone HCl (Trazodone) 150 mg PO HS [facility] Stop: 07/26/18 22:46 Last Admin: 01/24/18 23:25 Dose: 150 mg Warfarin Sodium (Coumadin Perpt) 1 each PO DAILY@1800 PRN PRN Reason: SEE COMMENTS Stop: 07/27/18 18:01 - Imaging and Cardiology Echo: report reviewed Holter: report reviewed - EKG Interpretation EKG results cardiology: personally reviewed (A-Fib RVR rate 111), other (12 hr tele AVG HR 85, A-Fib) Consult Discharge Plan - Plan Referrals: Raúl English DO [Primary Care Provider] -
[2018-01-25] MEDS ORDERED: *HR* Metoprolol 5 MG/5 ML VIAL IVP ONE (09:35)
[2018-01-25] MEDS: Ascorbic Acid 500 MG TABLET PO SCH (10:35)
[2018-01-25] MEDS: Folic Acid 1 MG TABLET PO SCH (10:35)
[2018-01-25] MEDS: Multivit/Ca/Min/Fe/FA 1 TAB TABLET PO SCH (10:35)
[2018-01-25] MEDS: Hyoscyamine SL 0.125 MG TAB.SUBL PO SCH ×2 (10:35→20:23)
[2018-01-25] MEDS: Metoprolol XL (24 HR) Succ 25 MG TAB.ER.24H PO SCH ×2 (10:36→20:23)
[2018-01-25] MEDS: 0.9 % Sodium Chloride 1,000 ML IVC SCH (10:53)
[2018-01-25] MEDS: *HR* HYDROcodone/Acet 5/325 mg TABLET PO PRN (13:42)
--- NOTE | 2018-01-25 17:22 | Electrocardiograph Report ---
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
[2018-01-25] MEDS ORDERED: Warfarin perPT PO PRN (18:00)
[2018-01-25] MEDS ORDERED: *HR* Warfarin 3 MG TABLET PO ONE (18:00)
[2018-01-25] MEDS: rOPINIRole 1 MG TABLET PO SCH (20:23)
[2018-01-25] MEDS: traZODone 50 MG TABLET PO SCH (20:23)
[2018-01-26 04:23] LABS: Basophils % 0.6 %; Eosinophils # 0.1 K/mcL (0.0-0.6); Eosinophils % 2.5 %; Hemoglobin 11.9 g/dL (11.5-15.4); Immature Granulocytes % 0.3 % (0-4); Lymphocytes % 28.2 %; Mean Corpuscular HGB Conc 33.1 g/dL (31.6-35.5); Mean Corpuscular Hemoglobin 31.6 pg (28.0-33.3); Mean Corpuscular Volume 95.5 fL (83.0-100.0); Mean Platelet Volume 9.6 fL (9.4-12.4); Monocytes # 0.2 K/mcL (0.0-1.3); Monocytes % 5.6 %; Neutrophils # 2.3 K/mcL (1.6-8.9); Platelet Count 138 K/mcL (140-400); Red Blood Count 3.77 M/mcL (3.82-4.97); Red Cell Distribution Width 15.5 % (11.5-14.5); Segmented Neutrophils % 62.8 %
[2018-01-26 04:29] LABS: INR 2.3; Prothrombin Time 25.1 Seconds (9.4-12.1)
[2018-01-26 04:42] LABS: BUN/Creatinine Ratio 18 (6-26); Blood Urea Nitrogen 17 mg/dL (8-23); Calcium 9.4 mg/dL (8.6-10.3); Carbon Dioxide 28 mEq/L (23-29); Chloride 107 mEq/L (98-107); Glucose 92 mg/dL (70-105); Osmolality,Calculated 291 (280-300); Potassium 4.1 mEq/L (3.5-5.1); Sodium 140 mEq/L (136-145); eGFR For African Americans > 60 (> 60); eGFR For Non-African Americans 59 (> 60)
[2018-01-26] MEDS: Tiotropium 18 MCG inhalation IH SCH (07:56)
--- NOTE | 2018-01-26 08:59 | Cardiology Progress Note ---
Date of Encounter: 01/26/18 Time of Encounter: 08:57 Assessment and Plan (1) Atrial fibrillation Current Visit: Yes Status: Chronic Known persistent A-Fib, hx of ablation in 1999 and multiple DCCV attempts since that time. Previously on Amiodarone, since stopped. Home AV darwin blockers include Lopressor 12.5mg BID. HR improved since starting Toprol XL 25mg BID. 12 hr tele AVG HR 82. HR low 100s at bedside, has not had morning meds yet. Suspect chronic diarrhea/IBS is causing dehydration and then RVR. TTE 12/2016 EF preserved. There was concern for prosthetic . MAICOL 01/2017 no evidence. Anticoagulated on Coumadin, INR 2.3. Recommend continue with rate control and anticoagulation strategy. Cardiology signing off. Reconsult PRN. Coordinate outpt follow-up in 2-3 weeks. Qualifiers: Atrial fibrillation type: persistent Qualified Code(s): I48.1 - Persistent atrial fibrillation (2) History of mechanical aortic valve replacement Current Visit: Yes Status: Chronic Mechanical AVR 1999. TTE 12/2016 There was concern for prosthetic . MAICOL 01/2017 no evidence. Continue Coumadin. Goal INR 2.0-3.0. Discussion w patient/family: The assessment and plan as outlined above was discussed with the patient and/or family members who expressed understanding and agreement. All questions were answered. Thank you for involving us in the care of your patient. Please call with any questions. I will discuss all the above with Dr. Luna and make changes as necessary. Subjective Principal diagnosis: A-Fib Interval history: Better rate controlled--12 hr tele AVG HR 82, A-Fib. Pt denies acute complaints this AM. Objective Vital Signs, Last 4 Hours Temp Pulse Resp BP Pulse Ox 01/26/18 07:56 16 95 01/26/18 07:36 98.1 F 95 15 119/92 92 01/26/18 05:00 97.8 F 76 16 96/65 99 Vital Signs Temp Pulse Resp BP Pulse Ox 01/26/18 07:56 16 95 01/26/18 07:36 98.1 F 95 15 119/92 92 01/26/18 05:00 97.8 F 76 16 96/65 99 01/26/18 04:20 96 01/26/18 00:00 97.8 F 78 16 118/73 97 06/04/18 23:53 21 109/72 94 01/25/18 20:00 97.7 F 116 16 109/72 93 01/25/18 15:35 97.9 F 73 16 101/78 97 01/25/18 10:59 98.2 F 99 16 115/73 96 01/25/18 10:20 95 117/98 Intake and Output 01/25/18 01/26/18 01/26/18 23:59 07:59 15:59 Intake Total 120 / 120 240 / 240 Output Total 0 / 0 300 / 300 Balance 120 / 120 -60 / -60 Intake: Oral 120 / 120 240 / 240 Output: Urine 0 / 0 300 / 300 Other: Weight 72.4 kg Patient Weight 01/26/18 23:59 Weight 72.4 kg General: Conversant, No Apparent Distress HEENT: Atraumatic, Normocephaly, Mucus Membranes Moist Neck: No JVD, Normal carotid pulses Cardiac: Other (irregularly irregular) Lungs: Normal Breath Sounds, No Wheeze, Rales, Rhonchi Neuro: Alert and responsive, No focal deficits noted Abdomen: Soft, Non-Tender Skin: No rashes noted on visualized skin Musculoskeletal: No Chest Wall Tenderness Extremities: No Clubbing, No Cyanosis, No Edema, Normal Pulses Results 01/26/18 03:53 01/26/18 03:53 Lab Results 01/26/18 01/26/18 01/26/18 03:53 03:53 03:53 WBC 3.6 L Hgb 11.9 Hct 36.0 Plt Count 138 L INR 2.3 Sodium 140 Potassium 4.1 Chloride 107 Carbon Dioxide 28 BUN 17 Creatinine 0.94 Glucose 92 Calcium 9.4 Short CBC 01/26/18 Range/Units 03:53 WBC 3.6 L (4.3-11.1) K/mcL Hgb 11.9 (11.5-15.4) g/dL Hct 36.0 (35.3-44.9) % Plt Count 138 L (140-400) K/mcL Neutrophils # 2.3 (1.6-8.9) K/mcL BMP 01/26/18 Range/Units 03:53 Sodium 140 (136-145) mEq/L Potassium 4.1 (3.5-5.1) mEq/L Chloride 107 (98-107) mEq/L Carbon Dioxide 28 (23-29) mEq/L BUN 17 (8-23) mg/dL Creatinine 0.94 (0.60-1.20) mg/dL Glucose 92 (70-105) mg/dL Calcium 9.4 (8.6-10.3) mg/dL Active Medications Acetaminophen (Tylenol) 650 mg PO Q6HR PRN PRN Reason: Mild Pain/Fever Stop: 07/26/18 20:21 Hydrocodone Bitart/Acetaminophen ([place] 5-325 Mg) 1 tab PO Q6HR PRN PRN Reason: Moderate Pain Stop: 07/26/18 20:21 Last Admin: 01/25/18 13:42 Dose: 1 tab Ascorbic Acid (Vitamin C) 500 mg PO DAILY [facility]ARD Stop: 07/27/18 09:01 Last Admin: 01/25/18 10:35 Dose: 500 mg Buspirone HCl (Buspar) 10 mg PO BID PRN PRN Reason: Anxiety Folic Acid (Folic Acid) 1 mg PO DAILY [facility] Stop: 07/27/18 09:01 Last Admin: 01/25/18 10:35 Dose: 1 mg Hyoscyamine (Levsin Sl) 0.375 mg PO BID [facility]ARD Stop: 07/27/18 09:01 Last Admin: 01/25/18 20:23 Dose: 0.375 mg Sodium Chloride (0.9 % Sodium Chloride) 1,000 mls @ 100 mls/hr IVC .Q10H [facility]ONARD Stop: 07/26/18 20:31 Last Admin: 01/25/18 10:53 Dose: 100 mls/hr Loperamide HCl (Imodium) 2 mg PO DAILY PRN PRN Reason: Diarrhea Stop: 07/26/18 22:44 Metoprolol Succinate (Toprol Xl) 25 mg PO BID [facility]ARD Stop: 07/27/18 09:46 Last Admin: 01/25/18 20:23 Dose: 25 mg Multivitamins/Calcium (Thera M Plus) 1 tab PO DAILY [facility] Stop: 07/27/18 09:01 Last Admin: 01/25/18 10:35 Dose: 1 tab Naloxone HCl (Narcan) 0.4 mg IVP Q2MIN PRN PRN Reason: SEE COMMENTS Stop: 07/26/18 20:21 Ondansetron HCl (Zofran) 4 mg IVP Q6HR PRN; Protocol PRN Reason: Nausea And Vomiting Stop: 07/26/18 20:21 Pramipexole Dihydrochloride (Mirapex) 0.125 mg PO HS [facility] Stop: 07/26/18 22:46 Last Admin: 01/25/18 20:23 Dose: 0.125 mg Ropinirole HCl (Requip) 2 mg PO HS [facility] Stop: 07/26/18 22:46 Last Admin: 01/25/18 20:23 Dose: 2 mg Sertraline HCl (Zoloft) 50 mg PO DAILY [facility] Stop: 07/27/18 09:01 Last Admin: 01/25/18 10:36 Dose: 50 mg Simvastatin (Zocor) 10 mg PO HS [facility] Stop: 07/27/18 21:01 Last Admin: 01/25/18 20:23 Dose: 10 mg Tiotropium [place] (Spiriva) 18 mcg IH DAILY [facility] Stop: 07/27/18 09:01 Last Admin: 01/26/18 07:56 Dose: 18 mcg Trazodone HCl (Trazodone) 150 mg PO HS [facility] Stop: 07/26/18 22:46 Last Admin: 01/25/18 20:23 Dose: 150 mg Warfarin Sodium (Coumadin Perpt) 1 each PO DAILY@1800 PRN PRN Reason: SEE COMMENTS Stop: 07/27/18 18:01 - EKG Interpretation EKG results cardiology: other (12 hr tele AVG HR 82, A-Fib) Consult Discharge Plan - Plan Referrals: Raúl English DO [Primary Care Provider] -
[2018-01-26] MEDS: Multivit/Ca/Min/Fe/FA 1 TAB TABLET PO SCH (10:22)
[2018-01-26] MEDS: Folic Acid 1 MG TABLET PO SCH (10:22)
[2018-01-26] MEDS: Hyoscyamine SL 0.125 MG TAB.SUBL PO SCH ×2 (10:26→20:29)
[2018-01-26] MEDS: Ascorbic Acid 500 MG TABLET PO SCH (10:26)
[2018-01-26] MEDS: Metoprolol XL (24 HR) Succ 25 MG TAB.ER.24H PO SCH (10:26)
[2018-01-26] MEDS: 0.9 % Sodium Chloride 1,000 ML IVC SCH (10:27)
[2018-01-26] MEDS ORDERED: *HR* Metoprolol 5 MG/5 ML VIAL IVP ONE (11:53)
[2018-01-26] MEDS ORDERED: Metoprolol XL (24 HR) Succ 25 MG TAB.ER.24H PO ONE (11:54)
--- NOTE | 2018-01-26 11:56 | Event Note ---
Date of Encounter: 01/26/18 Time of Encounter: 11:55 - Cardiology Event Note Pt continued to be A-Fib RVR, HR up to 150s after morning meds. Give one time dose of Lopressor 5mg IV. Give extra PO dose of Toprol XL 25mg and increase Toprol XL to 50mg BID. Will continue to follow and re-evaluate HR in AM.
--- NOTE | 2018-01-26 13:32 | Internal Med Progress Note ---
<Tiff Diaz - Last Filed: 01/26/18 15:52> Date of Encounter: 01/26/18 Time of Encounter: 15:52 - Assessment and plan (1) Atrial fibrillation Current Visit: Yes Status: Chronic Assessment and plan: Patient remains in afib. No evidence of ischemia. TSH WNL. Most likely associated with medication changes. Cardiology consulted to adjust medications to increase Toprol XL to 50mg BID Patient up to 150HR today. Cardiology concern for dehydration due to diarrhea for worsening atrial fibrillation. We will consult gastroenterology as well. Qualifiers: Atrial fibrillation type: persistent Qualified Code(s): I48.1 - Persistent atrial fibrillation (2) History of mechanical aortic valve replacement Current Visit: Yes Status: Chronic Assessment and plan: INR therapeutic. Continue coumadin per pharmacy dosing. (3) COPD (chronic obstructive pulmonary disease) Current Visit: Yes Status: Chronic Assessment and plan: Patient at baseline respiratory status. Continue home medications. Qualifiers: COPD type: unspecified COPD Qualified Code(s): J44.9 - Chronic obstructive pulmonary disease, unspecified (4) HTN (hypertension) Current Visit: Yes Status: Chronic Assessment and plan: Continue home medications. Cardiology has been consulted. Last cardiology appointment as an outpatient Norvasc was stopped. Patient currently only taking lopressor. Qualifiers: Hypertension type: essential hypertension Qualified Code(s): I10 - Essential (primary) hypertension (5) Acute renal failure Current Visit: Yes Status: Acute Assessment and plan: Resolved with IV fluid rehydration. Qualifiers: Acute renal failure type: unspecified Qualified Code(s): N17.9 - Acute kidney failure, unspecified (6) Rheumatoid arthritis Current Visit: Yes Status: Acute Assessment and plan: Currently on methotrexate. Continue home medications. Qualifiers: Rheumatoid arthritis location: unspecified site Rheumatoid factor presence : unspecified presence Qualified Code(s): M06.9 - Rheumatoid arthritis, unspecified (7) Diarrhea Current Visit: Yes Status: Acute Assessment and plan: Patient has followed up with gastroenterology as an outpatient. Denies any medication changes. 4 loose bowel movements today. Not concerning for infectious cause. We will consult gastroenterology. Qualifiers: Diarrhea type: unspecified type Qualified Code(s): R19.7 - Diarrhea, unspecified (8) DVT prophylaxis Current Visit: Yes Status: Acute Assessment and plan: Patient has therapeutic INR. - Time Spent With Patient Total time spent is greater than 50% in coordination of care (as documented) at patient's floor/unit and/or counseling patient: - Subjective Interval history: Patient states she is feeling well today. Has had 4 loose nonbloody bowel movements today. Denies any dizziness, chest pain or palpitations. Eating and drinking without difficulty. - Constitutional Vitals: Temp Pulse Resp BP Pulse Ox 98.1 F 117 18 129/97 97 01/26/18 10:43 01/26/18 10:43 01/26/18 10:43 01/26/18 10:43 01/26/18 10:43 General appearance: Present: A&O X 3, pleasant, no acute distress - Head Head exam: Present: atraumatic, normal inspection, normocephalic - Respiratory Respiratory exam: Present: CTAB. Absent: accessory muscle use, respiratory distress - Cardiovascular Cardiovascular exam: Present: irregular rhythm, tachycardia - GI/Abdominal GI/Abdominal exam: Present: soft. Absent: rebound, rigid, tenderness - Neurological Exam Neurological exam: Present: alert, oriented X3, no focal deficits Internal Medicine: Result - Labs CBC & Chem 7: 01/26/18 03:53 01/26/18 03:53 Labs: Short CBC 01/26/18 Range/Units 03:53 WBC 3.6 L (4.3-11.1) K/mcL Hgb 11.9 (11.5-15.4) g/dL Hct 36.0 (35.3-44.9) % Plt Count 138 L (140-400) K/mcL Neutrophils # 2.3 (1.6-8.9) K/mcL BMP 01/26/18 03:53 Sodium 140 Potassium 4.1 Chloride 107 Carbon Dioxide 28 BUN 17 Creatinine 0.94 Glucose 92 Calcium 9.4 - ABG Interpretation ABG results: PT/INR, D-dimer PT 25.1 Seconds (9.4-12.1) H 01/26/18 03:53 Consult Discharge Plan - Plan Referrals: Cris Mead, FISCAL TECHNICIAN [Advanced Practice Nurse] - 02/02/18 12:30 pm <William Bassett - Last Filed: 01/26/18 17:37> Date of Encounter: 01/26/18 - Assessment and plan (1) Atrial fibrillation Current Visit: Yes Status: Chronic Qualifiers: Atrial fibrillation type: persistent Qualified Code(s): I48.1 - Persistent atrial fibrillation (2) History of mechanical aortic valve replacement Current Visit: Yes Status: Chronic (3) COPD (chronic obstructive pulmonary disease) Current Visit: Yes Status: Chronic Qualifiers: COPD type: unspecified COPD Qualified Code(s): J44.9 - Chronic obstructive pulmonary disease, unspecified (4) HTN (hypertension) Current Visit: Yes Status: Chronic Qualifiers: Hypertension type: essential hypertension Qualified Code(s): I10 - Essential (primary) hypertension (5) DVT prophylaxis Current Visit: Yes Status: Acute (6) Dizziness Current Visit: Yes Status: Acute (7) Nausea & vomiting Current Visit: Yes Status: Chronic Qualifiers: Vomiting type: unspecified Vomiting Intractability: non-intractable Qualified Code(s): R11.2 - Nausea with vomiting, unspecified (8) Acute renal failure Current Visit: Yes Status: Acute Qualifiers: Acute renal failure type: unspecified Qualified Code(s): N17.9 - Acute kidney failure, unspecified (9) Chronic diarrhea Current Visit: No Status: Chronic - Time Spent With Patient Total time spent is greater than 50% in coordination of care (as documented) at patient's floor/unit and/or counseling patient: - Constitutional Vitals: Temp Pulse Resp BP Pulse Ox 98 F 110 18 113/95 93 01/26/18 16:03 01/26/18 16:03 01/26/18 16:03 01/26/18 16:03 01/26/18 16:03 Internal Medicine: Result - Labs CBC & Chem 7: 01/26/18 03:53 01/26/18 03:53 Labs: Short CBC 01/26/18 Range/Units 03:53 WBC 3.6 L (4.3-11.1) K/mcL Hgb 11.9 (11.5-15.4) g/dL Hct 36.0 (35.3-44.9) % Plt Count 138 L (140-400) K/mcL Neutrophils # 2.3 (1.6-8.9) K/mcL BMP 01/26/18 03:53 Sodium 140 Potassium 4.1 Chloride 107 Carbon Dioxide 28 BUN 17 Creatinine 0.94 Glucose 92 Calcium 9.4 - ABG Interpretation ABG results: PT/INR, D-dimer PT 25.1 Seconds (9.4-12.1) H 01/26/18 03:53 - Attending Attestation I examined this patient and my medical decision-making was reviewed with the Resident Physician on 01/26/18. I agree with the documented findings, disposition and treatment plan as described except to the extent set forth below. Ms Diamond is currently admitted for rapid a fib. She remains moderate to high risk due to potential for worsening clinical status. Ms Diamond feels OK. She has had some diarrhea today. No fever or chills. Heart rate has been higher today and meds adjusted by cardiology. GI has been requested for opinion regarding volume loss from diarrhea. Exam alert Comfortable Mucus membranes dry Heart irreg - not tachy now No wheeze I/P 1. A fib 2. Chronic diarrhea Further diagnoses and plan as above.
[2018-01-26] MEDS ORDERED: *HR* Warfarin 7.5 MG TABLET PO ONE (18:00)
[2018-01-26] MEDS: Metoprolol XL (24 HR) Succ 50 MG TAB.ER.24H PO SCH (20:30)
[2018-01-26] MEDS: traZODone 50 MG TABLET PO SCH (20:30)
[2018-01-26] MEDS: rOPINIRole 1 MG TABLET PO SCH (20:30)
[2018-01-26] MEDS: *HR* HYDROcodone/Acet 5/325 mg TABLET PO PRN (20:31)
[2018-01-27 04:48] LABS: Basophils % 0.8 %; Eosinophils # 0.1 K/mcL (0.0-0.6); Eosinophils % 2.7 %; Hematocrit 31.7 % (35.3-44.9); Hemoglobin 10.8 g/dL (11.5-15.4); Immature Granulocytes % 0.3 % (0-4); Mean Corpuscular HGB Conc 34.1 g/dL (31.6-35.5); Mean Corpuscular Hemoglobin 32.7 pg (28.0-33.3); Mean Corpuscular Volume 96.1 fL (83.0-100.0); Mean Platelet Volume 9.6 fL (9.4-12.4); Monocytes # 0.3 K/mcL (0.0-1.3); Monocytes % 8.1 %; Neutrophils # 2.3 K/mcL (1.6-8.9); Platelet Count 122 K/mcL (140-400); Red Cell Distribution Width 15.2 % (11.5-14.5); Segmented Neutrophils % 62.1 %
[2018-01-27 05:04] LABS: BUN/Creatinine Ratio 16 (6-26); Blood Urea Nitrogen 13 mg/dL (8-23); Carbon Dioxide 28 mEq/L (23-29); Chloride 110 mEq/L (98-107); Glucose 90 mg/dL (70-105); Osmolality,Calculated 292 (280-300); Potassium 4.2 mEq/L (3.5-5.1); Sodium 141 mEq/L (136-145); eGFR For African Americans > 60 (> 60); eGFR For Non-African Americans > 60 (> 60)
[2018-01-27 05:05] LABS: INR 2.1; Prothrombin Time 23.1 Seconds (9.4-12.1)
[2018-01-27] MEDS: Ascorbic Acid 500 MG TABLET PO SCH (07:47)
[2018-01-27] MEDS: Multivit/Ca/Min/Fe/FA 1 TAB TABLET PO SCH (07:47)
[2018-01-27] MEDS: Folic Acid 1 MG TABLET PO SCH (07:47)
[2018-01-27] MEDS: Hyoscyamine SL 0.125 MG TAB.SUBL PO SCH (07:47)
[2018-01-27] MEDS: Metoprolol XL (24 HR) Succ 50 MG TAB.ER.24H PO SCH (07:47)
[2018-01-27] MEDS: *HR* HYDROcodone/Acet 5/325 mg TABLET PO PRN (07:52)
[2018-01-27] MEDS: Tiotropium 18 MCG inhalation IH SCH (07:59)
--- NOTE | 2018-01-27 10:53 | Cardiology Progress Note ---
Date of Encounter: 01/27/18 Time of Encounter: 11:10 Assessment and Plan (1) Atrial fibrillation Current Visit: Yes Status: Chronic Known persistent A-Fib, hx of ablation in 1999 and multiple DCCV attempts since that time. Previously on Amiodarone, since stopped. Home AV darwin blockers include Lopressor 12.5mg BID. HR continues to improve. Avg HR=77 afib overnight. HR's 70-80's upon exam today. Continue Toprol XL 50 mg BID upon discharge. Suspect chronic diarrhea/IBS is causing dehydration and then RVR, GI consult pending. TTE 12/2016 EF preserved. There was concern for prosthetic . MAICOL 01/2017 no evidence. Anticoagulated on Coumadin, INR 2.3. Recommend continue with rate control and anticoagulation strategy. Cardiology signing off. Reconsult PRN. Coordinate outpt follow-up in 2-3 weeks. Qualifiers: Atrial fibrillation type: persistent Qualified Code(s): I48.1 - Persistent atrial fibrillation (2) History of mechanical aortic valve replacement Current Visit: Yes Status: Chronic Mechanical AVR 1999. TTE 12/2016 There was concern for prosthetic . MAICOL 01/2017 no evidence. Continue Coumadin. Goal INR 2.0-3.0. Discussion w patient/family: The assessment and plan as outlined above was discussed with the patient and/or family members who expressed understanding and agreement. All questions were answered. Thank you for involving us in the care of your patient. Please call with any questions. The patient will be discussed and reviewed with Dr. Luna; changes to be made accordingly. Subjective Principal diagnosis: A-Fib Interval history: No complaints today upon exam. Is awaiting GI consult for possible d/c home later today. Objective Vital Signs, Last 4 Hours Resp Pulse Ox 01/27/18 07:59 16 97 General: Conversant, No Apparent Distress HEENT: Atraumatic, Normocephaly Cardiac: Other (irregularly irregular) Lungs: Normal Breath Sounds Neuro: Alert and responsive Abdomen: Soft Skin: No rashes noted on visualized skin Musculoskeletal: No Chest Wall Tenderness Extremities: No Edema, Normal Pulses Results 01/27/18 04:22 01/27/18 04:22 Lab Results 01/27/18 01/27/18 01/27/18 04:22 04:22 04:22 WBC 3.7 L Hgb 10.8 L Hct 31.7 L Plt Count 122 L INR 2.1 Sodium 141 Potassium 4.2 Chloride 110 H Carbon Dioxide 28 BUN 13 Creatinine 0.83 Glucose 90 Calcium 9.0 Active Medications Acetaminophen (Tylenol) 650 mg PO Q6HR PRN PRN Reason: Mild Pain/Fever Stop: 07/26/18 20:21 Hydrocodone Bitart/Acetaminophen ([place] 5-325 Mg) 1 tab PO Q6HR PRN PRN Reason: Moderate Pain Stop: 07/26/18 20:21 Last Admin: 01/27/18 07:52 Dose: 1 tab Ascorbic Acid (Vitamin C) 500 mg PO DAILY [facility] Stop: 07/27/18 09:01 Last Admin: 01/27/18 07:47 Dose: 500 mg Buspirone HCl (Buspar) 10 mg PO BID PRN PRN Reason: Anxiety Folic Acid (Folic Acid) 1 mg PO DAILY [facility] Stop: 07/27/18 09:01 Last Admin: 01/27/18 07:47 Dose: 1 mg Hyoscyamine (Levsin Sl) 0.375 mg PO BID [facility] Stop: 07/27/18 09:01 Last Admin: 01/27/18 07:47 Dose: 0.375 mg Loperamide HCl (Imodium) 2 mg PO Q4HR PRN PRN Reason: Diarrhea Stop: 07/28/18 09:31 Last Admin: 01/26/18 20:31 Dose: 2 mg Metoprolol Succinate (Toprol Xl) 50 mg PO BID [facility] Stop: 07/28/18 21:01 Last Admin: 01/27/18 07:47 Dose: 50 mg Multivitamins/Calcium (Thera M Plus) 1 tab PO DAILY [facility] Stop: 07/27/18 09:01 Last Admin: 01/27/18 07:47 Dose: 1 tab Naloxone HCl (Narcan) 0.4 mg IVP Q2MIN PRN PRN Reason: SEE COMMENTS Stop: 07/26/18 20:21 Ondansetron HCl (Zofran) 4 mg IVP Q6HR PRN; Protocol PRN Reason: Nausea And Vomiting Stop: 07/26/18 20:21 Pramipexole Dihydrochloride (Mirapex) 0.125 mg PO HS [facility] Stop: 07/26/18 22:46 Last Admin: 01/26/18 20:29 Dose: 0.125 mg Ropinirole HCl (Requip) 2 mg PO HS [facility] Stop: 07/26/18 22:46 Last Admin: 01/26/18 20:30 Dose: 2 mg Sertraline HCl (Zoloft) 50 mg PO DAILY [facility] Stop: 07/27/18 09:01 Last Admin: 01/27/18 07:47 Dose: 50 mg Simvastatin (Zocor) 10 mg PO HS [facility] Stop: 07/27/18 21:01 Last Admin: 01/26/18 20:30 Dose: 10 mg Tiotropium [place] (Spiriva) 18 mcg IH DAILY [facility] Stop: 07/27/18 09:01 Last Admin: 01/27/18 07:59 Dose: 18 mcg Trazodone HCl (Trazodone) 150 mg PO [facility] Stop: 07/26/18 22:46 Last Admin: 01/26/18 20:30 Dose: 150 mg Warfarin Sodium (Coumadin Perpt) 1 each PO DAILY@1800 PRN PRN Reason: SEE COMMENTS Stop: 07/27/18 18:01 Warfarin Sodium (Coumadin) 7.5 mg PO 1800 ONE Stop: 01/27/18 18:01 - Imaging and Cardiology Other Results: 12 hour tele: avg HR=77 afib. - EKG Interpretation EKG results cardiology: personally reviewed Consult Discharge Plan - Plan Referrals: Cris Mead FIRST GRADE TEACHER [Advanced Practice Nurse] - 02/02/18 12:30 pm
[2018-01-27 11:01] VITALS: BP 106/86
[2018-01-27] MEDS ORDERED: MethylPREDNISolone 40 MG/ML VIAL IVP ONE (12:09)
--- NOTE | 2018-01-27 12:23 | Gastroenterology Consult Note ---
Date of Encounter: 01/27/18 Time of Encounter: 11:25 - Assessment and plan (1) Irritable bowel syndrome with diarrhea Current Visit: Yes Status: Acute Assessment and plan: Diarrhea worsened with anxiety and stress. She was given a small amount of Xanax by Dr. Davis on 10/22/2017 and 11/26/2017 to help with anxiety, she was to follow up with her PCP to continue the Xanax. Pt states her PCP did not want to continue the Xanax. Last colonoscopy with some nonspecific inflammation. Stool studies have been negative. Due to the nonspecific inflammation on colonoscopy, give Solu-Medrol 45 mg IV. Start Entocort 9 mg daily on discharge. Continue Hyoscyamine BID. Start daily fiber supplement. Follow-up in [address] Davis. - Time Spent With Patient Total time spent is greater than 50% in coordination of care (as documented) at patient's floor/unit and/or counseling patient: GI History of Present Illness - Data of Consult Patient: known to practice within the last 3 years Consult date: 01/27/18 Requesting Physician: William Bassett DO - Consult Narrative Reason for consult: Diarrhea History of present illness: Ms. Diamond is a 67 year old female with PMHx of IBS-D, Afib s/p ablation 1999, COPD 2L oxygen, CAD, HLD, HTN, who presented to the ED complaining of dizziness. This has been going on for a couple days with associated nausea and vomiting and mid abdominal pain. The patient was noted to be in atrial fibrillation with RVR with rates up to 140 in the ED. Denies any headache, blurry vision, chest pain, shortness of breath, constipation, lower extremity edema, urinary symptoms, or neurological symptoms other than dizziness. She has IBS-diarrhea that is worsened with her anxiety and stress. She follows with Dr. Davis. She was given a small amount of Xanax on 10/22/2017 and 11/26/2017 to help with anxiety, she was to follow up with her PCP to continue the Xanax. Pt states her PCP did not want to continue the Xanax. Procedures: EGD 01/14/2017 Dr Chaudhari: Mild nonspecific duodenal inflammation. mild nonspecific duodenal inflammation. Colonoscopy 10/06/2016 Dr. Chaudhari: Diverticulosis and nonspecific inflammation. Repeat 5 years. Colonoscopy 12/08/2012 Dr. Juan Miguel): Diverticulosis NSAIDs: None Anticoagulation: Coumadin Past Med Surg Social Fam HX - Past Medical History Medical history: atrial fibrillation, COPD, coronary artery disease, hyperlipidemia, hypertension, peripheral artery disease, RA, valvular heart disease Additional medical history: FAILED CARDIOVERSION Psychiatric history: no psych history - Past Surgical History Surgical History: appendectomy, heart valve replacement, herniorrhaphy, hysterectomy, orthopedic, other, vascular surgery Additional surgical history: cervical neck surgery- 2 donor bones, left foot surgery-tumor removed, right arm rotator cuff repair, right knee scope, right arm brachial artery repair - Social History Smoking Status: Former smoker Smokeless Tobacco Status: No Alcohol use: none Drug use: none - Family History Father Living Status: Hx Family Cancer: Yes (colon and liver) Mother Living Status: Hx Family Cardiac Disorders: Yes - Gastrointestinal Gastrointestinal: Present: as per HPI - Constitutional Constitutional: as per HPI - EENT Eyes: as per HPI Ears: Present: as per HPI Nose, mouth and throat: Present: as per HPI - Cardiovascular Cardiovascular ROS: Present: as per HPI - Respiratory Respiratory IM: Present: as per HPI - Genitourinary Genitourinary: Absent: change in color, Urinary frequency - Neurological ROS Neurological GI: Present: as per HPI - Hematologic/Lymphatic Hematologic/Lymphatic pediatric: Present: as per HPI - Musculoskeletal Musculoskeletal ROS GI: Present: as per HPI - Integumentary Integumentary GI: Present: as per HPI - Psychiatric ROS Psychiatric GI: Present: as per HPI - Endocrine Endocrine IM: Present: as per HPI - Constitutional Vitals: Temp Pulse Resp BP Pulse Ox 98.2 F 82 16 106/86 97 01/27/18 10:57 01/27/18 10:57 01/27/18 10:57 01/27/18 10:57 01/27/18 10:57 General appearance: Present: cooperative, A&O X 3, no acute distress, answers questions appropriately - Head Head exam: Present: atraumatic, normocephalic - Eye Eye exam: Present: normal appearance, sclera anicteric - ENT ENT exam: Present: mucous membranes moist - Neck Neck exam general surgery: Present: normal inspection, trachea midline - Respiratory Respiratory exam: Present: CTAB. Absent: rales, rhonchi, wheezes - Cardiovascular Cardiovascular exam: Present: RRR, +S1, +S2 - GI/Abdominal GI/Abdominal exam: Present: soft, no peritoneal signs. Absent: distended, firm , guarding, tenderness - Rectal Rectal exam: Present: deferred - Extremities Exam Extremities exam: Present: warm - Neurological Exam Neurological exam: Present: no focal deficits - Psychiatric Psychiatric exam: Present: normal affect, normal mood - Skin Skin exam: Present: dry, intact, normal color, warm Results - Labs CBC & Chem 7: 01/27/18 04:22 01/27/18 04:22 Labs: Last Result Calcium 9.0 mg/dL (8.6-10.3) 01/27/18 04:22 Troponin I < 0.03 ng/mL (< 0.04) 01/24/18 17:44 Entire Visit Hgb 10.8 g/dL (11.5-15.4) L 01/27/18 04:22 Hct 31.7 % (35.3-44.9) L 01/27/18 04:22 PT 23.1 Seconds (9.4-12.1) H 01/27/18 04:22 - ABG ABG results: PT/INR, D-dimer PT 23.1 Seconds (9.4-12.1) H 01/27/18 04:22 Consult Discharge Plan - Plan Referrals: Cris Mead, TEACHER AIDE [Advanced Practice Nurse] - 02/02/18 12:30 pm
--- NOTE | 2018-01-27 13:37 | Discharge Summary ---
<Tiff Diaz - Last Filed: 01/27/18 13:32> Orders not resulted at time of discharge: Pending orders 01/28/18 04:00 PT/INR [Prothrombin Time INR] [COAG] AM 0400 01/29/18 04:00 PT/INR [Prothrombin Time INR] [COAG] AM 0400 01/30/18 04:00 PT/INR [Prothrombin Time INR] [COAG] AM 0400 01/31/18 04:00 PT/INR [Prothrombin Time INR] [COAG] AM 0400 02/01/18 04:00 PT/INR [Prothrombin Time INR] [COAG] AM 0400 Date of Encounter: 01/27/18 Time of Encounter: 13:32 - Discharge Diagnosis (1) Atrial fibrillation Priority: Primary Status: Chronic Qualifiers: Atrial fibrillation type: persistent Qualified Code(s): I48.1 - Persistent atrial fibrillation (2) History of mechanical aortic valve replacement Priority: Secondary Status: Chronic (3) COPD (chronic obstructive pulmonary disease) Priority: Secondary Status: Chronic Qualifiers: COPD type: unspecified COPD Qualified Code(s): J44.9 - Chronic obstructive pulmonary disease, unspecified (4) HTN (hypertension) Priority: Secondary Status: Chronic Qualifiers: Hypertension type: essential hypertension Qualified Code(s): I10 - Essential (primary) hypertension (5) Acute renal failure Priority: Secondary Status: Acute Qualifiers: Acute renal failure type: unspecified Qualified Code(s): N17.9 - Acute kidney failure, unspecified (6) Rheumatoid arthritis Priority: Secondary Status: Acute Qualifiers: Rheumatoid arthritis location: unspecified site Rheumatoid factor presence : unspecified presence Qualified Code(s): M06.9 - Rheumatoid arthritis, unspecified (7) Diarrhea Priority: Secondary Status: Acute Qualifiers: Diarrhea type: unspecified type Qualified Code(s): R19.7 - Diarrhea, unspecified Hospital course: Ms. Diamond is a 67 year old female with past medical history of hypertension, atrila fibrillation s/p ablation 1999, mechanical AVR 1998, COPD 2 L oxygen, depression, restless leg syndrome who comes to the ED complaining of dizziness. She is being evaluated at urgent care for this and was sent here. This has been going on for a couple days with associated nausea and vomiting and mid abdominal pain. She has chronic diarrhea. No fevers or chills. The patient was noted to be in atrial fibrillation with RVR with rates up to 140 in the ED. She was given IV Lopressor 5 mg 2. Her rate still uncontrolled. She sees Dr. Power and saw him a month ago and they to me that one of her medications dosages was decreased also they are not sure which one. Denies any headache, blurry vision, chest pain, shortness of breath, constipation, lower extremity edema, urinary symptoms, or neurological symptoms other than dizziness. CT head was unremarkable in the ED. Chest x-ray was clear. Laboratory workup was significant for mildly elevated creatinine at 1.37. INR was 3.4. Potassium was 4.1. TSH was normal. BNP was mildly elevated at 444. Multiple medication changes were needed to control patient's atrial fibrillation. Cardiology was concerned for diarrhea leading to dehydration worsening atrial fibrillation. GI has seen the patient and added medications and will follow up outpatient. Patient now rate controlled. - Time Spent with Patient Total time spent providing and/or coordinating discharge services: - Discharge Medications Prescriptions: Budesonide [Entocort EC] 9 mg PO DAILY #30 capdr...er Metoprolol XL (24 HR) Succ [Toprol Xl] 50 mg PO BID #60 tab.er.24h Home Medications: Buspirone HCl [Buspar] 10 mg PO BID 04/07/16 [History] Furosemide [Lasix] 40 mg PO AD 04/07/16 [History] Pravastatin Sodium [Pravachol] 40 mg PO HS 04/07/16 [History] Spironolactone [Aldactone] 25 mg PO DAILY 04/07/16 [History] Tiotropium [Spiriva] 1 cap IH DAILY 04/07/16 [History] Trazodone HCl 150 mg PO HS 04/07/16 [History] rOPINIRole [Requip] 2 mg PO HS 04/07/16 [History] Methotrexate [Otrexup] 6 tab PO FR 10/06/16 [History] Sertraline [Zoloft] 50 mg PO DAILY 10/06/16 [History] Warfarin [Coumadin] 5 mg PO AD 10/06/16 [History] Folic Acid 1 mg PO DAILY 02/16/17 [History] Hyoscyamine Sulfate [Levbid] 0.375 mg PO BID 06/15/17 [History] Loperamide HCl [Imodium A-D] 2 mg PO DAILY PRN 06/15/17 [History] Pramipexole [Mirapex] 0.125 mg PO HS 06/15/17 [History] Albuterol Sulfate [Albuterol Inhaler] 1 - 2 puff IH Q4-6H PRN 01/25/18 [History] Hydroxychloroquine [Plaquenuil] 200 mg PO DAILY 01/25/18 [History] Lisinopril [Zestril] 10 mg PO DAILY 01/25/18 [History] Potassium Chloride [Klor-Con Sprinkle] 10 meq PO TID 01/25/18 [History] Budesonide [Entocort EC] 9 mg PO DAILY #30 capdr...er 01/27/18 [Rx] Metoprolol XL (24 HR) Succ [Toprol Xl] 50 mg PO BID #60 tab.er.24h 01/27/18 [Rx] Allergies/Adverse Reactions: 3 Allergy/AdvReac Type Severity Reaction Status Date / Time No Known Allergies Allergy Verified 01/25/18 09:42 Date of admission: 01/24/18 20:50 Primary care physician: Raúl English Consults: 01/26/18 11:54 Consult to Cardiology [CONS] Routine Comment: Consulting Provider: Cardiology Lillie Reason for Consult: reconsult, RVR Call Completed: Yes 01/26/18 13:31 Consult to Gastroenterology [CONS] Routine Consulting Provider: Gastroenterology Lillie Reason for Consult: Diarrhea, Afib Call Completed: Yes Discharging clinician: Tiff Diaz Anticipated date of discharge: 01/27/18 - Constitutional Vitals: Temp Pulse Resp BP Pulse Ox 98.2 F 82 16 106/86 97 01/27/18 10:57 01/27/18 10:57 01/27/18 10:57 01/27/18 10:57 01/27/18 10:57 General appearance: Present: A&O X 3, pleasant, no acute distress - Respiratory Respiratory exam: Present: CTAB. Absent: accessory muscle use, respiratory distress - Cardiovascular Cardiovascular exam: Present: irregular rhythm (normal rate), systolic murmur - GI/Abdominal GI/Abdominal exam: Present: soft. Absent: rebound, rigid, tenderness - Extremities Exam Extremities exam: Present: warm. Absent: tenderness - Neurological Exam Neurological exam: Present: alert, oriented X3, no focal deficits - Patient Status Disposition: Home, Self-Care Condition: Good Functional capacity at discharge: independent ambulation - Discharge Instructions Instructions: Metoprolol (By mouth), Budesonide (By breathing), Atrial Fibrillation (DC), Chest Pain (DC), Acute Kidney Injury (DC), Chronic Obstructive Pulmonary Disease (DC), Chronic Hypertension (DC) Follow Up With: Cris Mead PRODUCTION STAFF WORKER [Advanced Practice Nurse] - 02/02/18 12:30 pm Additional Instructions: Please continue home medications. Please add new medications given to you including Toprol 50 mg twice a day. Entocort 9 mg once a day. Please also add a fiber supplement. Please follow-up with your loading unit operator seating Dr. Power within the next 1-2 weeks. Please follow-up with your digital project manager Dr. Davis in the next 3 weeks. - Diet and Activity Activity: increase activity as tolerated, resume usual activities as tolerated Diet: advance to your usual diet <William Bassett - Last Filed: 01/27/18 19:37> Date of Encounter: 01/27/18 - Discharge Diagnosis (1) Atrial fibrillation Status: Chronic Qualifiers: Atrial fibrillation type: persistent Qualified Code(s): I48.1 - Persistent atrial fibrillation (2) History of mechanical aortic valve replacement Status: Chronic (3) COPD (chronic obstructive pulmonary disease) Status: Chronic Qualifiers: COPD type: unspecified COPD Qualified Code(s): J44.9 - Chronic obstructive pulmonary disease, unspecified (4) HTN (hypertension) Status: Chronic Qualifiers: Hypertension type: essential hypertension Qualified Code(s): I10 - Essential (primary) hypertension (5) Dizziness Priority: Secondary Status: Resolved (6) Nausea & vomiting Priority: Secondary Status: Chronic Qualifiers: Vomiting type: unspecified Vomiting Intractability: non-intractable Qualified Code(s): R11.2 - Nausea with vomiting, unspecified (7) Acute renal failure Status: Acute Qualifiers: Acute renal failure type: unspecified Qualified Code(s): N17.9 - Acute kidney failure, unspecified (8) Chronic diarrhea Priority: Secondary Status: Chronic Hospital course: Ms. Diamond is a 67 year old female - Time Spent with Patient Total time spent providing and/or coordinating discharge services: 29min Date of admission: 01/24/18 20:50 Primary care physician: Raúl English Consults: 01/26/18 11:54 Consult to Cardiology [CONS] Routine Comment: Consulting Provider: Cardiology Lillie Reason for Consult: reconsult, RVR Call Completed: Yes 01/26/18 13:31 Consult to Gastroenterology [CONS] Routine Consulting Provider: Gastroenterology [place] Reason for Consult: Diarrhea, Afib Call Completed: Yes - Constitutional Vitals: Temp Pulse Resp BP Pulse Ox 98.2 F 82 16 106/86 97 01/27/18 10:57 01/27/18 10:57 01/27/18 10:57 01/27/18 10:57 01/27/18 10:57 - Attending Attestation I examined this patient and my medical decision-making was reviewed with the Resident Physician on 01/27/18. I agree with the documented findings, disposition and treatment plan as described except to the extent set forth below. Ms Diamond has been admitted for rapid a fib. Her medications have been adjusted with improvement in her rate. She was also seen by GI and to follow up as outpatient. Today she is afebrile and ready for discharge home. Exam alert Comfortable Mucus membranes dry Heart irreg No wheeze Plan D/C home today.
[2018-01-27] MEDS ORDERED: *HR* Warfarin 7.5 MG TABLET PO ONE (18:00)
== END 2018-01-27 15:28 | disposition home or self-care (01) | DRG 309 ==
LOC: EMEROO 16:45 → 2NENU 16:45 → SUATTDRO 20:50 → 2NENU 21:30
PROVIDERS: ADMIT Internal Medicine; ATTEND Internal Medicine